=== PATIENT | female | born 1935 | race Caucasian/White ===

== ENCOUNTER 2018-02-09 11:15 | Outpatient (RCR) | payer MEDICARE, BC, SELFPAY ==
[2018-01-01 14:27] VITALS: TEMP 36.1
--- NOTE | 2018-01-12 15:54 | PT.OIE ---
Current Diagnoses Spondylolisthesis, lumbar region (01/10/18) Other spondylosis with radiculopathy, lumbar region (01/10/18) Spinal stenosis, lumbar region without neurogenic claudication (01/10/18) Unsteadiness on feet (01/10/18) Weakness (01/10/18) Past Surgical History (Last Reviewed 01/12/18 @ 15:44 by Emily Da Silva, PT) History of cataract removal with insertion of prosthetic lens History of knee replacement (06/04/11) Status post appendectomy Status post hysterectomy Status post knee surgery Status post knee surgery Provider Visit Care Team Role Provider Type Ronni Ya MD Family Provider Physician Primary Care Provider Specialty: Family Practice Address: [address] [place] [address], [address] Email: [email or web address] Eusebio Loredo MD Attending Provider Physician Specialty: Orthopedic Surgery Address: [address] [place] [address], [id number] Email: [email or web address] Physical Therapy Initial Evaluation PT-OP-A Visit Information Start: 01/10/18 09:51 Freq: Status: Active Protocol: Document 01/10/18 10:10 [facility] (Rec: 01/12/18 15:53 [facility] [id number]) Out-Patient Physical Therapy Visit Information Visit Information Visit Type Initial Evaluation Visit Note 1 Visit Start Time 09:45 Visit Stop Time 10:30 Total Visit Minutes 45 Visit Number 09/07 Number of DETAIL ASSEMBLER Visits 0 PT-OP-B Current Condition Start: 01/10/18 09:51 Freq: Status: Active Protocol: Document 01/10/18 10:10 [facility] (Rec: 01/12/18 15:53 [facility] [id number]) Current Condition History of Current Condition Onset Date 11/14/17 Current Complaints LB feels weak History of Current Condition Pt had TLIF on 11/14/17 of L3-4 , L4-5 that she reports the MD told her is healing well. Pt reports last tuesday she tripped over a rug and the next day her L shoulder was very painful so she went to the ER, but is fine now. Main complaint is weakness in back and dec balance.S ehw asnts to returnt o pickleball & weight exercsies. Treatment Goals Patient/Caregiver Goals Return to pickleball & weights & improve balance Prior Functional Status Baseline Function- Recreation/Hobbies played pickleball & did weights Current Functional Impairments (Reported) Functional Limitations- Recreation/ unable to do weights or play Hobbies pickleball PT-OP-C Subjective Start: 01/10/18 09:51 Freq: Status: Active Protocol: Document 01/10/18 10:10 [facility] (Rec: 01/12/18 15:53 [facility] [email or web address]) Patient Questionnaires Oswestry Low Back Index Oswestry Score 5 Oswestry Impairment 1 to 19% Impaired (Score 1-19) OP-PT Pain Assessment Pain Assessment Grid Paper Pain Assessment Grid Completed Yes Location Bilateral Back Pain Location Details Low back feels weak PT-OP-G Mobility & Gait Start: 01/10/18 09:51 Freq: Status: Active Protocol: Document 01/10/18 10:10 [facility] (Rec: 01/12/18 15:53 [facility] [id number]) OP Gait Assessment Comments Gait Comments Pt has dec push off bilaterally. No AD PT-OP-J Posture/Palpation/Skin Start: 01/10/18 09:51 Freq: Status: Active Protocol: Document 01/10/18 10:10 [facility] (Rec: 01/12/18 15:53 [facility] [id number]) Posture Evaluation Comments Posture Comments Inc kyphosis Skin Assessment Incisional Assessment Incision Appearance/Comments Incision is healing well PT-OP-M Strength Start: 01/10/18 09:51 Freq: Status: Active Protocol: Document 01/10/18 10:10 [facility] (Rec: 01/10/18 10:27 [facility] [id number]) Hip Strength Hip Manual Muscle Testing Right Flexion (L2) 4 Good Extension (S1) 4- Good- Abduction 4 Good External Rotation 4 Good Internal Rotation 4 Good Left Flexion (L2) 4 Good Extension (S1) 4- Good- Abduction 4- Good- External Rotation 4 Good Internal Rotation 5 Normal Comments Knee & ankle strength grossly 5/5 (B) PT-OP-Q Treatments Start: 01/10/18 09:51 Freq: Status: Active Protocol: Document 01/10/18 10:10 [facility] (Rec: 01/10/18 10:27 [facility] [id number]) Therapeutic Exercises Supine Exercises 2 Supine Exercise Name bridging Side bilateral Comments w/breathing 1 Supine Exercise Name TA contraction Reps/Minutes 10 Comments w/breathing Sidelying Exercises 1 Sidelying Exercise Name hip abd Side bilateral Reps/Minutes 10 PT-OP-T Assessment and Plan Start: 01/10/18 09:51 Freq: Status: Active Protocol: Document 01/10/18 10:10 [facility] (Rec: 01/12/18 15:53 [facility] [id number]) Physical Therapy Assessment Rehab Potential Rehabilitation Potential Excellent Evaluation Complexity Number of Personal Factors/Comorbidities 3 or More Number of Body Systems Impaired 4 or More Clinical Presentation at Evaluation Stable Impairments Impairments Activity Tolerance Balance Functional Activities Gait Posture Strength Goals Two Impairment Pt feels dec balance Mcc Goal (LTG) Pt will be able to score 22/24 on DGI LTG Duration by 03/12/18 One Impairment strength Short Term Goal (STG) Indep with HEP STG Duration by 02/10/18 Field Tax Auditor Goal (LTG) Increased strength to 5/5 to allow pt to return to pickleball & weights without pain. LTG Duration by 03/12/18 Physical Therapy Plan Frequency and Duration Frequency of Treatment 2x/Week Duration of Treatment 2 months Plan of Care Start Date 01/10/18 Plan of Care End Date 03/12/18 Therapeutic Interventions Therapeutic Interventions Balance Training Gait Training Home Exercise Program Joint Mobilizations Manual Therapy Neuromuscular Re-education Patient/Caregiver Education Soft Tissue Mobilization Taping Therapeutic Activities Therapeutic Exercises Modalities Cold Pack/Ice Massage Electric Stimulation Hot Packs Next Visit Focus/Plan Next Visit Plan LE strengthening exercises & supine core & weight exercises Provider Signature Date
--- NOTE | 2018-01-12 15:54 | PT.OPPOC ---
Current Diagnoses Spondylolisthesis, lumbar region (01/10/18) Other spondylosis with radiculopathy, lumbar region (01/10/18) Spinal stenosis, lumbar region without neurogenic claudication (01/10/18) Unsteadiness on feet (01/10/18) Weakness (01/10/18) Provider Visit Care Team Role Provider Type Ronni Ya MD Family Provider Physician Primary Care Provider Specialty: Family Practice Address: [address] [place] [address], [address] Email: [email or web address] Eusebio Loredo MD Attending Provider Physician Specialty: Orthopedic Surgery Address: [address] [place] [address], [address] Email: [email or web address] Plan Of Care PT-OP-T Assessment and Plan Start: 01/10/18 09:51 Freq: Status: Active Protocol: Document 01/10/18 10:10 [facility] (Rec: 01/12/18 15:53 [facility] [id number]) Physical Therapy Assessment Rehab Potential Rehabilitation Potential Excellent Evaluation Complexity Number of Personal Factors/Comorbidities 3 or More Number of Body Systems Impaired 4 or More Clinical Presentation at Evaluation Stable Impairments Impairments Activity Tolerance Balance Functional Activities Gait Posture Strength Goals Two Impairment Pt feels dec balance Repair Coil Winder Goal (LTG) Pt will be able to score 22/24 on DGI LTG Duration by 03/12/18 One Impairment strength Short Term Goal (STG) Indep with HEP STG Duration by 02/10/18 Intermediate Goal (LTG) Increased strength to 5/5 to allow pt to return to pickleball & weights without pain. LTG Duration by 03/12/18 Physical Therapy Plan Frequency and Duration Frequency of Treatment 2x/Week Duration of Treatment 2 months Plan of Care Start Date 01/10/18 Plan of Care End Date 03/12/18 Therapeutic Interventions Therapeutic Interventions Balance Training Gait Training Home Exercise Program Joint Mobilizations Manual Therapy Neuromuscular Re-education Patient/Caregiver Education Soft Tissue Mobilization Taping Therapeutic Activities Therapeutic Exercises Modalities Cold Pack/Ice Massage Electric Stimulation Hot Packs Next Visit Focus/Plan Next Visit Plan LE strengthening exercises & supine core & weight exercises Plan of Care Dates Plan of Care Start Date 01/10/18 Plan of Care End Date 03/12/18 Please Sign and Return: I have reviewed this Plan of Care and certify that the skilled therapy services above are required to meet the patient???s needs. Physician Signature Date Printed Name and Credentials
--- NOTE | 2018-01-13 11:38 | PT.OTN ---
Current Diagnoses Spondylolisthesis, lumbar region (01/13/18) Other spondylosis with radiculopathy, lumbar region (01/13/18) Spinal stenosis, lumbar region without neurogenic claudication (01/13/18) Physical Therapy Treatment Note PT-OP-A Visit Information Start: 01/10/18 09:51 Freq: Status: Active Protocol: Document 01/13/18 09:02 [facility] (Rec: 01/13/18 09:49 [facility] [id number]) Out-Patient Physical Therapy Visit Information Visit Information Visit Type Treatment Note Visit Note 2 Visit Start Time 09:00 Visit Stop Time 09:45 Total Visit Minutes 45 Visit Number 10/08 PT-OP-B Current Condition Start: 01/10/18 09:51 Freq: Status: Active Protocol: Document 01/10/18 10:10 [facility] (Rec: 01/12/18 15:53 [facility] [id number]) Current Condition History of Current Condition Onset Date 11/14/17 Current Complaints LB feels weak History of Current Condition Pt had TLIF on 11/14/17 of L3-4 , L4-5 that she reports the MD told her is healing well. Pt reports last tuesday she tripped over a rug and the next day her L shoulder was very painful so she went to the ER, but is fine now. Main complaint is weakness in back and dec balance.S ehw asnts to returnt o pickleball & weight exercsies. Treatment Goals Patient/Caregiver Goals Return to pickleball & weights & improve balance Prior Functional Status Baseline Function- Recreation/Hobbies played pickleball & did weights Current Functional Impairments (Reported) Functional Limitations- Recreation/ unable to do weights or play Hobbies pickleball PT-OP-C Subjective Start: 01/10/18 09:51 Freq: Status: Active Protocol: Document 01/13/18 09:02 [facility] (Rec: 01/13/18 09:49 [facility] [id number]) OP-PT Subjective Patient Comments Patient Comments Reports fatigue in back after exercising. PT-OP-G Mobility & Gait Start: 01/10/18 09:51 Freq: Status: Active Protocol: Document 01/10/18 10:10 [facility] (Rec: 01/12/18 15:53 [facility] [id number]) OP Gait Assessment Comments Gait Comments Pt has dec push off bilaterally. No AD PT-OP-J Posture/Palpation/Skin Start: 01/10/18 09:51 Freq: Status: Active Protocol: Document 01/10/18 10:10 [facility] (Rec: 01/12/18 15:53 [facility] [id number]) Posture Evaluation Comments Posture Comments Inc kyphosis Skin Assessment Incisional Assessment Incision Appearance/Comments Incision is healing well PT-OP-M Strength Start: 01/10/18 09:51 Freq: Status: Active Protocol: Document 01/10/18 10:10 [facility] (Rec: 01/10/18 10:27 [facility] [id number]) Hip Strength Hip Manual Muscle Testing Right Flexion (L2) 4 Good Extension (S1) 4- Good- Abduction 4 Good External Rotation 4 Good Internal Rotation 4 Good Left Flexion (L2) 4 Good Extension (S1) 4- Good- Abduction 4- Good- External Rotation 4 Good Internal Rotation 5 Normal Comments Knee & ankle strength grossly 5/5 (B) PT-OP-Q Treatments Start: 01/10/18 09:51 Freq: Status: Active Protocol: Document 01/13/18 09:02 [facility] (Rec: 01/13/18 09:49 [facility] [id number]) Gym Equipment Shuttle Balance 1 Details red clips Comments WBOS & NBOS fwd & side Therapeutic Exercises Supine Exercises 4 Supine Exercise Name SKTC Reps/Minutes 3x30 sec 3 Supine Exercise Name supine marches w/ tilt Reps/Minutes 2x10 2 Supine Exercise Name bridging Side bilateral Comments w/breathing 1 Supine Exercise Name TA contraction Reps/Minutes 10 Comments w/breathing Sidelying Exercises 1 Sidelying Exercise Name hip abd Side bilateral Reps/Minutes 10 Manual Therapy Treatment Soft Tissue Mobilization 1 Body Location scar tissue Mobilization Type Rolling Intensity/Depth Moderate Body Position Prone Self-Care/Home Management Treatment Education Other Education Edu to start weight class without weights. No crunches, bending or twisting exercises. PT-OP-T Assessment and Plan Start: 01/10/18 09:51 Freq: Status: Active Protocol: Document 01/13/18 09:02 [facility] (Rec: 01/13/18 09:49 [facility] [id number]) Physical Therapy Assessment Assessment Summary Assessment Pt required cueing especially with breathing with all exercises. Initially had difficulty with balance board, but improved with time spent on board. Scar mobility presents with moderate restrictions. Physical Therapy Plan Frequency and Duration Frequency of Treatment 2x/Week Duration of Treatment 2 months Plan of Care Start Date 01/10/18 Plan of Care End Date 03/12/18 Next Visit Focus/Plan Next Visit Plan Core & balance
--- NOTE | 2018-01-17 10:25 | PT.OTN ---
Current Diagnoses Spondylolisthesis, lumbar region (01/17/18) Other spondylosis with radiculopathy, lumbar region (01/17/18) Spinal stenosis, lumbar region without neurogenic claudication (01/17/18) Physical Therapy Treatment Note PT-OP-A Visit Information Start: 01/10/18 09:51 Freq: Status: Active Protocol: Document 01/17/18 09:48 [facility] (Rec: 01/17/18 10:24 [facility] [id number]) Out-Patient Physical Therapy Visit Information Visit Information Visit Type Treatment Note Visit Start Time 09:45 Visit Stop Time 10:30 Total Visit Minutes 45 Visit Number 3 Number of LUBE TECHNICIAN Visits 0 PT-OP-B Current Condition Start: 01/10/18 09:51 Freq: Status: Active Protocol: Document 01/10/18 10:10 [facility] (Rec: 01/12/18 15:53 [facility] [id number]) Current Condition History of Current Condition Onset Date 11/14/17 Current Complaints LB feels weak History of Current Condition Pt had TLIF on 11/14/17 of L3-4 , L4-5 that she reports the MD told her is healing well. Pt reports last tuesday she tripped over a rug and the next day her L shoulder was very painful so she went to the ER, but is fine now. Main complaint is weakness in back and dec balance.S ehw asnts to returnt o pickleball & weight exercsies. Treatment Goals Patient/Caregiver Goals Return to pickleball & weights & improve balance Prior Functional Status Baseline Function- Recreation/Hobbies played pickleball & did weights Current Functional Impairments (Reported) Functional Limitations- Recreation/ unable to do weights or play Hobbies pickleball PT-OP-C Subjective Start: 01/10/18 09:51 Freq: Status: Active Protocol: Document 01/17/18 09:48 [facility] (Rec: 01/17/18 10:24 [facility] [id number]) OP-PT Subjective Patient Comments Patient Comments Reports dec compliance with HEP d/t being in the hospital. PT-OP-G Mobility & Gait Start: 01/10/18 09:51 Freq: Status: Active Protocol: Document 01/10/18 10:10 [facility] (Rec: 01/12/18 15:53 [facility] [id number]) OP Gait Assessment Comments Gait Comments Pt has dec push off bilaterally. No AD PT-OP-J Posture/Palpation/Skin Start: 01/10/18 09:51 Freq: Status: Active Protocol: Document 01/10/18 10:10 [facility] (Rec: 01/12/18 15:53 [facility] [id number]) Posture Evaluation Comments Posture Comments Inc kyphosis Skin Assessment Incisional Assessment Incision Appearance/Comments Incision is healing well PT-OP-M Strength Start: 01/10/18 09:51 Freq: Status: Active Protocol: Document 01/10/18 10:10 [facility] (Rec: 01/10/18 10:27 [facility] [id number]) Hip Strength Hip Manual Muscle Testing Right Flexion (L2) 4 Good Extension (S1) 4- Good- Abduction 4 Good External Rotation 4 Good Internal Rotation 4 Good Left Flexion (L2) 4 Good Extension (S1) 4- Good- Abduction 4- Good- External Rotation 4 Good Internal Rotation 5 Normal Comments Knee & ankle strength grossly 5/5 (B) PT-OP-Q Treatments Start: 01/10/18 09:51 Freq: Status: Active Protocol: Document 01/17/18 09:48 [facility] (Rec: 01/17/18 10:24 [facility] [id number]) Cardio Equipment Recumbent Elliptical (Biodex) Duration (Minutes) 6 Resistance 8 Gym Equipment Shuttle Balance 1 Details red clips Comments WBOS & NBOS fwd & side & fwd staggered Therapeutic Exercises Supine Exercises 4 Supine Exercise Name SKTC Reps/Minutes 30 sec 3 Supine Exercise Name marches progress to scissors Reps/Minutes 2x10 2 Supine Exercise Name bridging w/arms up Side bilateral Reps/Minutes 10 Comments w/breathing Sidelying Exercises 1 Sidelying Exercise Name hip abd Side bilateral Reps/Minutes 10 Standing Exercises 2 Standing Exercise Name fwd/back walk Resistance yellow Reps/Minutes 2x20ft 1 Standing Exercise Name sidesteps Resistance yellow Reps/Minutes 2x20ft Manual Therapy Treatment Soft Tissue Mobilization 1 Body Location scar tissue Mobilization Type Rolling Intensity/Depth Moderate Body Position Prone Neuro Re-Education Treatment Balance Activities 1 Details walk over hurdles w/thera discs Reps/Duration 4 laps PT-OP-T Assessment and Plan Start: 01/10/18 09:51 Freq: Status: Active Protocol: Document 01/17/18 09:48 [facility] (Rec: 01/17/18 10:24 [facility] [id number]) Physical Therapy Assessment Assessment Summary Assessment Pt had improved form with exercises with cont min cueing . Pt had improved balance with balance board today. Physical Therapy Plan Frequency and Duration Frequency of Treatment 2x/Week Duration of Treatment 2 months Plan of Care Start Date 01/10/18 Plan of Care End Date 03/12/18 Next Visit Focus/Plan Next Visit Plan Core & balance Please Sign and Return: I have reviewed this Plan of Care and certify that the skilled therapy services above are required to meet the patient???s needs. Physician Signature Date Printed Name and Credentials Clinical Instructor Signature Printed Name and Credentials
--- NOTE | 2018-01-20 12:56 | PT.OTN ---
Current Diagnoses Spondylolisthesis, lumbar region (01/20/18) Other spondylosis with radiculopathy, lumbar region (01/20/18) Spinal stenosis, lumbar region without neurogenic claudication (01/20/18) Physical Therapy Treatment Note PT-OP-A Visit Information Start: 01/10/18 09:51 Freq: Status: Active Protocol: Document 01/20/18 09:45 [facility] (Rec: 01/20/18 12:54 [facility] [id number]) Out-Patient Physical Therapy Visit Information Visit Information Visit Type Treatment Note Visit Start Time 09:45 Visit Stop Time 10:30 Total Visit Minutes 45 Visit Number 4/ Number of TISSUE TECHNICIAN Visits 0 Evaluation Information Evaluation Date 01/10/18 PT-OP-B Current Condition Start: 01/10/18 09:51 Freq: Status: Active Protocol: Document 01/10/18 10:10 [facility] (Rec: 01/12/18 15:53 [facility] [id number]) Current Condition History of Current Condition Onset Date 11/14/17 Current Complaints LB feels weak History of Current Condition Pt had TLIF on 11/14/17 of L3-4 , L4-5 that she reports the MD told her is healing well. Pt reports last tuesday she tripped over a rug and the next day her L shoulder was very painful so she went to the ER, but is fine now. Main complaint is weakness in back and dec balance.S ehw asnts to returnt o pickleball & weight exercsies. Treatment Goals Patient/Caregiver Goals Return to pickleball & weights & improve balance Prior Functional Status Baseline Function- Recreation/Hobbies played pickleball & did weights Current Functional Impairments (Reported) Functional Limitations- Recreation/ unable to do weights or play Hobbies pickleball PT-OP-C Subjective Start: 01/10/18 09:51 Freq: Status: Active Protocol: Document 01/20/18 09:45 [facility] (Rec: 01/20/18 10:01 [facility] [id number]) OP-PT Subjective Patient Comments Patient Comments The low back still feels weak. PT-OP-G Mobility & Gait Start: 01/10/18 09:51 Freq: Status: Active Protocol: Document 01/10/18 10:10 [facility] (Rec: 01/12/18 15:53 [facility] [id number]) OP Gait Assessment Comments Gait Comments Pt has dec push off bilaterally. No AD PT-OP-J Posture/Palpation/Skin Start: 01/10/18 09:51 Freq: Status: Active Protocol: Document 01/10/18 10:10 [facility] (Rec: 01/12/18 15:53 [facility] [id number]) Posture Evaluation Comments Posture Comments Inc kyphosis Skin Assessment Incisional Assessment Incision Appearance/Comments Incision is healing well PT-OP-M Strength Start: 01/10/18 09:51 Freq: Status: Active Protocol: Document 01/10/18 10:10 [facility] (Rec: 01/10/18 10:27 [facility] [id number]) Hip Strength Hip Manual Muscle Testing Right Flexion (L2) 4 Good Extension (S1) 4- Good- Abduction 4 Good External Rotation 4 Good Internal Rotation 4 Good Left Flexion (L2) 4 Good Extension (S1) 4- Good- Abduction 4- Good- External Rotation 4 Good Internal Rotation 5 Normal Comments Knee & ankle strength grossly 5/5 (B) PT-OP-Q Treatments Start: 01/10/18 09:51 Freq: Status: Active Protocol: Document 01/20/18 09:45 [facility] (Rec: 01/20/18 12:54 [facility] [id number]) Cardio Equipment Recumbent Elliptical (Biodex) Duration (Minutes) 6 Resistance 8 Gym Equipment Shuttle Balance 1 Details red clips Comments WBOS & NBOS fwd & side & fwd staggered- with mini lunge Therapeutic Exercises Supine Exercises 4 Supine Exercise Name SKTC Reps/Minutes 30 sec 3 Supine Exercise Name marches progress to scissors Reps/Minutes 2x10 1 Supine Exercise Name TA contraction Reps/Minutes 10 Comments w/breathing Sidelying Exercises 1 Sidelying Exercise Name hip abd Side bilateral Reps/Minutes 12 Standing Exercises 5 Standing Exercise Name pec stretch Equipment Used corner Reps/Minutes 30x4 4 Standing Exercise Name lunge- forward Reps/Minutes 2x10 3 Standing Exercise Name squat Reps/Minutes 2x10 Manual Therapy Treatment Soft Tissue Mobilization 1 Body Location scar tissue Mobilization Type Rolling Intensity/Depth Moderate Body Position Sidelying PT-OP-T Assessment and Plan Start: 01/10/18 09:51 Freq: Status: Active Protocol: Document 01/20/18 09:45 [facility] (Rec: 01/20/18 12:54 [facility] [id number]) Physical Therapy Assessment Goals Two Impairment Pt feels dec balance Silver Cleaner Goal (LTG) Pt will be able to score 22/24 on DGI LTG Duration by 03/12/18 One Impairment strength Short Term Goal (STG) Indep with HEP STG Duration by 02/10/18 Silver Cleaner Goal (LTG) Increased strength to 5/5 to allow pt to return to pickleball & weights without pain. LTG Duration by 03/12/18 Assessment Summary Assessment Balance is improving- she is concerned about her L shoulder pain from her fall. Physical Therapy Plan Frequency and Duration Frequency of Treatment 2x/Week Duration of Treatment 2 months Plan of Care Start Date 01/10/18 Plan of Care End Date 03/12/18 Next Visit Focus/Plan Next Note Type Treatment Note Next Visit Plan Continue to progress postural awareness, jose with weight class. Please Sign and Return: I have reviewed this Plan of Care and certify that the skilled therapy services above are required to meet the patient???s needs. Physician Signature Date Printed Name and Credentials Clinical Instructor Signature Printed Name and Credentials
--- NOTE | 2018-01-24 10:40 | PT.OTN ---
Current Diagnoses Spondylolisthesis, lumbar region (01/24/18) Other spondylosis with radiculopathy, lumbar region (01/24/18) Spinal stenosis, lumbar region without neurogenic claudication (01/24/18) Physical Therapy Treatment Note PT-OP-A Visit Information Start: 01/10/18 09:51 Freq: Status: Active Protocol: Document 01/24/18 09:43 [facility] (Rec: 01/24/18 10:39 [facility] [id number]) Out-Patient Physical Therapy Visit Information Visit Information Visit Type Treatment Note Visit Start Time 09:45 Visit Stop Time 10:30 Total Visit Minutes 45 Visit Number 5/ Number of TIP STRETCHER Visits 0 PT-OP-B Current Condition Start: 01/10/18 09:51 Freq: Status: Active Protocol: Document 01/10/18 10:10 [facility] (Rec: 01/12/18 15:53 [facility] [id number]) Current Condition History of Current Condition Onset Date 11/14/17 Current Complaints LB feels weak History of Current Condition Pt had TLIF on 11/14/17 of L3-4 , L4-5 that she reports the MD told her is healing well. Pt reports last tuesday she tripped over a rug and the next day her L shoulder was very painful so she went to the ER, but is fine now. Main complaint is weakness in back and dec balance.S ehw asnts to returnt o pickleball & weight exercsies. Treatment Goals Patient/Caregiver Goals Return to pickleball & weights & improve balance Prior Functional Status Baseline Function- Recreation/Hobbies played pickleball & did weights Current Functional Impairments (Reported) Functional Limitations- Recreation/ unable to do weights or play Hobbies pickleball PT-OP-C Subjective Start: 01/10/18 09:51 Freq: Status: Active Protocol: Document 01/24/18 09:43 [facility] (Rec: 01/24/18 10:39 [facility] [id number]) OP-PT Subjective Patient Comments Patient Comments No exercises this weekend, but plans to resume this week. Some lower L soreness. PT-OP-G Mobility & Gait Start: 01/10/18 09:51 Freq: Status: Active Protocol: Document 01/10/18 10:10 [facility] (Rec: 01/12/18 15:53 [facility] [id number]) OP Gait Assessment Comments Gait Comments Pt has dec push off bilaterally. No AD PT-OP-J Posture/Palpation/Skin Start: 01/10/18 09:51 Freq: Status: Active Protocol: Document 01/10/18 10:10 [facility] (Rec: 01/12/18 15:53 [facility] [id number]) Posture Evaluation Comments Posture Comments Inc kyphosis Skin Assessment Incisional Assessment Incision Appearance/Comments Incision is healing well PT-OP-M Strength Start: 01/10/18 09:51 Freq: Status: Active Protocol: Document 01/10/18 10:10 [facility] (Rec: 01/10/18 10:27 [facility] [id number]) Hip Strength Hip Manual Muscle Testing Right Flexion (L2) 4 Good Extension (S1) 4- Good- Abduction 4 Good External Rotation 4 Good Internal Rotation 4 Good Left Flexion (L2) 4 Good Extension (S1) 4- Good- Abduction 4- Good- External Rotation 4 Good Internal Rotation 5 Normal Comments Knee & ankle strength grossly 5/5 (B) PT-OP-Q Treatments Start: 01/10/18 09:51 Freq: Status: Active Protocol: Document 01/24/18 09:43 [facility] (Rec: 01/24/18 10:39 [facility] [id number]) Cardio Equipment Recumbent Elliptical (Biodex) Duration (Minutes) 6 Resistance 8 Gym Equipment Shuttle Balance 1 Details red clips Comments WBOS & NBOS fwd & side & fwd staggered- with mini lunge Therapeutic Ball 2 Exercise Details marching Ball Size/Color 55cm Body Position Sitting Reps/Duration 20 1 Exercise Details Shoulder ext & B ER Ball Size/Color 55 CM Body Position Sitting Reps/Duration 15 Comments L2 ext & L1 rot Therapeutic Exercises Standing Exercises 5 Standing Exercise Name pec stretch Equipment Used corner Reps/Minutes 30 4 Standing Exercise Name lunge- forward Reps/Minutes 2x10 2 Standing Exercise Name fwd/back walk Resistance yellow Reps/Minutes 2x20ft 1 Standing Exercise Name sidesteps Resistance yellow Reps/Minutes 2x20ft Manual Therapy Treatment Soft Tissue Mobilization 2 Body Location QL L Mobilization Type Rolling Intensity/Depth Moderate Body Position Prone 1 Body Location scar tissue Mobilization Type Rolling Intensity/Depth Moderate Body Position Sidelying PT-OP-T Assessment and Plan Start: 01/10/18 09:51 Freq: Status: Active Protocol: Document 01/24/18 09:43 [facility] (Rec: 01/24/18 10:39 [facility] [id number]) Physical Therapy Assessment Goals Two Impairment Pt feels dec balance Bag Sorter Goal (LTG) Pt will be able to score 22/24 on DGI LTG Duration by 03/12/18 One Impairment strength Short Term Goal (STG) Indep with HEP STG Duration by 02/10/18 Bag Sorter Goal (LTG) Increased strength to 5/5 to allow pt to return to pickleball & weights without pain. LTG Duration by 03/12/18 Assessment Summary Assessment Pt able to go through exercises with cueing. Improved ability to balance on balance board. L shoulder is improving Physical Therapy Plan Frequency and Duration Frequency of Treatment 2x/Week Duration of Treatment 2 months Plan of Care Start Date 01/10/18 Plan of Care End Date 03/12/18 Next Visit Focus/Plan Next Note Type Treatment Note Next Visit Plan Continue to progress postural awareness & core activiation. Please Sign and Return: I have reviewed this Plan of Care and certify that the skilled therapy services above are required to meet the patient???s needs. Physician Signature Date Printed Name and Credentials Clinical Instructor Signature Printed Name and Credentials
--- NOTE | 2018-01-27 09:45 | PT.OTN ---
Current Diagnoses Spondylolisthesis, lumbar region (01/27/18) Other spondylosis with radiculopathy, lumbar region (01/27/18) Spinal stenosis, lumbar region without neurogenic claudication (01/27/18) Physical Therapy Treatment Note PT-OP-A Visit Information Start: 01/10/18 09:51 Freq: Status: Active Protocol: Document 01/27/18 09:00 [facility] (Rec: 01/27/18 09:44 [facility] [id number]) Out-Patient Physical Therapy Visit Information Visit Information Visit Type Treatment Note Visit Start Time 09:00 Visit Stop Time 09:45 Total Visit Minutes 45 Visit Number 02/05 Number of DATABASE SOFTWARE TECHNICIAN Visits 0 Evaluation Information Evaluation Date 01/10/18 PT-OP-B Current Condition Start: 01/10/18 09:51 Freq: Status: Active Protocol: Document 01/10/18 10:10 [facility] (Rec: 01/12/18 15:53 [facility] [id number]) Current Condition History of Current Condition Onset Date 11/14/17 Current Complaints LB feels weak History of Current Condition Pt had TLIF on 11/14/17 of L3-4 , L4-5 that she reports the MD told her is healing well. Pt reports last tuesday she tripped over a rug and the next day her L shoulder was very painful so she went to the ER, but is fine now. Main complaint is weakness in back and dec balance.S ehw asnts to returnt o pickleball & weight exercsies. Treatment Goals Patient/Caregiver Goals Return to pickleball & weights & improve balance Prior Functional Status Baseline Function- Recreation/Hobbies played pickleball & did weights Current Functional Impairments (Reported) Functional Limitations- Recreation/ unable to do weights or play Hobbies pickleball PT-OP-C Subjective Start: 01/10/18 09:51 Freq: Status: Active Protocol: Document 01/27/18 09:00 [facility] (Rec: 01/27/18 09:44 [facility] [id number]) OP-PT Subjective Patient Comments Patient Comments Pt reports her shoulder has been bothering her a little more recently PT-OP-Q Treatments Start: 01/10/18 09:51 Freq: Status: Active Protocol: Document 01/27/18 09:00 [facility] (Rec: 01/27/18 09:44 [facility] [id number]) Cardio Equipment Recumbent Elliptical (Biodex) Duration (Minutes) 6 Resistance 8 Gym Equipment Shuttle Balance 1 Details red clips Comments WBOS (EO/EC), Staggered stance , Lateral weight shift Therapeutic Ball 2 Exercise Details marching Ball Size/Color 55cm Body Position Sitting Reps/Duration 20 1 Exercise Details Shoulder ext & B ER Ball Size/Color 55 CM Body Position Sitting Reps/Duration 15 Comments L2 ext & L1 rot Therapeutic Exercises Standing Exercises 2 Standing Exercise Name fwd/back walk Resistance yellow Reps/Minutes 2x20ft 1 Standing Exercise Name sidesteps Resistance yellow Reps/Minutes 2x20ft Manual Therapy Treatment Soft Tissue Mobilization 2 Body Location QL L Mobilization Type Rolling Intensity/Depth Moderate Body Position Prone 1 Body Location scar tissue Mobilization Type Rolling Intensity/Depth Moderate Body Position Sidelying PT-OP-T Assessment and Plan Start: 01/10/18 09:51 Freq: Status: Active Protocol: Document 01/27/18 09:00 [facility] (Rec: 01/27/18 09:44 [facility] [id number]) Physical Therapy Assessment Goals Two Impairment Pt feels dec balance Candy Maker Helper Goal (LTG) Pt will be able to score 22/24 on DGI LTG Duration by 03/12/18 One Impairment strength Short Term Goal (STG) Indep with HEP STG Duration by 02/10/18 Penitentiary Goal (LTG) Increased strength to 5/5 to allow pt to return to pickleball & weights without pain. LTG Duration by 03/12/18 Assessment Summary Assessment Pt tolerated TherEx and manual therapy well today, reported no increased pain with activity. Pt did mention her shoulder pain, but she feels it might be improving. Physical Therapy Plan Frequency and Duration Frequency of Treatment 2x/Week Duration of Treatment 2 months Plan of Care Start Date 01/10/18 Plan of Care End Date 03/12/18 Next Visit Focus/Plan Next Note Type Treatment Note Next Visit Plan Balance training and core strengthening, continue current POC
--- NOTE | 2018-02-02 11:28 | PT.OTN ---
Current Diagnoses Spondylolisthesis, lumbar region (02/02/18) Other spondylosis with radiculopathy, lumbar region (02/02/18) Spinal stenosis, lumbar region without neurogenic claudication (02/02/18) Physical Therapy Treatment Note PT-OP-A Visit Information Start: 01/10/18 09:51 Freq: Status: Active Protocol: Document 02/02/18 10:41 [facility] (Rec: 02/02/18 11:28 [facility] [id number]) Out-Patient Physical Therapy Visit Information Visit Information Visit Type Treatment Note Visit Start Time 10:35 Visit Stop Time 11:15 Total Visit Minutes 40 Visit Number 7 Number of FOREST FIRE FIGHTER Visits 0 PT-OP-B Current Condition Start: 01/10/18 09:51 Freq: Status: Active Protocol: Document 01/10/18 10:10 [facility] (Rec: 01/12/18 15:53 [facility] [id number]) Current Condition History of Current Condition Onset Date 11/14/17 Current Complaints LB feels weak History of Current Condition Pt had TLIF on 11/14/17 of L3-4 , L4-5 that she reports the MD told her is healing well. Pt reports last tuesday she tripped over a rug and the next day her L shoulder was very painful so she went to the ER, but is fine now. Main complaint is weakness in back and dec balance.S ehw asnts to returnt o pickleball & weight exercsies. Treatment Goals Patient/Caregiver Goals Return to pickleball & weights & improve balance Prior Functional Status Baseline Function- Recreation/Hobbies played pickleball & did weights Current Functional Impairments (Reported) Functional Limitations- Recreation/ unable to do weights or play Hobbies pickleball PT-OP-C Subjective Start: 01/10/18 09:51 Freq: Status: Active Protocol: Document 02/02/18 10:41 [facility] (Rec: 02/02/18 11:28 [facility] [id number]) OP-PT Subjective Patient Comments Patient Comments Pt wants to work on the fact her back gets burning & tired. PT-OP-G Mobility & Gait Start: 01/10/18 09:51 Freq: Status: Active Protocol: Document 01/10/18 10:10 [facility] (Rec: 01/12/18 15:53 [facility] [id number]) OP Gait Assessment Comments Gait Comments Pt has dec push off bilaterally. No AD PT-OP-J Posture/Palpation/Skin Start: 01/10/18 09:51 Freq: Status: Active Protocol: Document 01/10/18 10:10 [facility] (Rec: 01/12/18 15:53 [facility] [id number]) Posture Evaluation Comments Posture Comments Inc kyphosis Skin Assessment Incisional Assessment Incision Appearance/Comments Incision is healing well PT-OP-M Strength Start: 01/10/18 09:51 Freq: Status: Active Protocol: Document 01/10/18 10:10 [facility] (Rec: 01/10/18 10:27 [facility] [id number]) Hip Strength Hip Manual Muscle Testing Right Flexion (L2) 4 Good Extension (S1) 4- Good- Abduction 4 Good External Rotation 4 Good Internal Rotation 4 Good Left Flexion (L2) 4 Good Extension (S1) 4- Good- Abduction 4- Good- External Rotation 4 Good Internal Rotation 5 Normal Comments Knee & ankle strength grossly 5/5 (B) PT-OP-Q Treatments Start: 01/10/18 09:51 Freq: Status: Active Protocol: Document 02/02/18 10:41 [facility] (Rec: 02/02/18 11:28 [facility] [id number]) Cardio Equipment Recumbent Elliptical (Biodex) Duration (Minutes) 7 Resistance 8 Gym Equipment Shuttle Balance 1 Details red clips Comments WBOS (EO/EC), NBOSStaggered stance, Lateral weight shift Therapeutic Exercises Standing Exercises 4 Standing Exercise Name lunge- forward Reps/Minutes 2x10 2 Standing Exercise Name fwd/back walk Resistance red Reps/Minutes 2x20ft 1 Standing Exercise Name sidesteps Resistance red Reps/Minutes 2x20ft Manual Therapy Treatment Soft Tissue Mobilization 2 Body Location QL L Mobilization Type Rolling Intensity/Depth Moderate Body Position Prone 1 Body Location scar tissue Mobilization Type Rolling Intensity/Depth Moderate Body Position Sidelying Joint Mobilizations 2 Joint hip on axis Direction ER FM 1 Joint sacrum Direction PA & caudal FM Neuro Re-Education Treatment Balance Activities 1 Details walk over hurdles w/thera discs Reps/Duration 4 laps PT-OP-T Assessment and Plan Start: 01/10/18 09:51 Freq: Status: Active Protocol: Document 02/02/18 10:41 [facility] (Rec: 02/02/18 11:28 [facility] [id number]) Physical Therapy Assessment Goals Two Impairment Pt feels dec balance Wine Merchant Goal (LTG) Pt will be able to score 22/24 on DGI LTG Duration by 03/12/18 One Impairment strength Short Term Goal (STG) Indep with HEP STG Duration by 02/10/18 Wine Merchant Goal (LTG) Increased strength to 5/5 to allow pt to return to pickleball & weights without pain. LTG Duration by 03/12/18 Assessment Summary Assessment Pt felt better with manual therapy. She had some difficulty with staggered stance on balance board. Improved performance w/hurdles w/balance pods. Physical Therapy Plan Frequency and Duration Frequency of Treatment 2x/Week Duration of Treatment 2 months Plan of Care Start Date 01/10/18 Plan of Care End Date 03/12/18 Next Visit Focus/Plan Next Note Type Treatment Note Next Visit Plan Balance training and core strengthening, continue current POC Please Sign and Return: I have reviewed this Plan of Care and certify that the skilled therapy services above are required to meet the patient?s needs. Physician Signature Date Printed Name and Credentials Clinical Instructor Signature Printed Name and Credentials
--- NOTE | 2018-02-07 11:24 | PT.OTN ---
Current Diagnoses Spondylolisthesis, lumbar region (02/07/18) Other spondylosis with radiculopathy, lumbar region (02/07/18) Spinal stenosis, lumbar region without neurogenic claudication (02/07/18) Physical Therapy Treatment Note PT-OP-A Visit Information Start: 01/10/18 09:51 Freq: Status: Active Protocol: Document 02/07/18 10:50 [facility] (Rec: 02/07/18 11:07 [facility] [id number]) Out-Patient Physical Therapy Visit Information Visit Information Visit Type Treatment Note Visit Start Time 10:35 Visit Stop Time 11:15 Total Visit Minutes 40 Visit Number 8/10 Number of SALES DEVELOPMENT MANAGER Visits 0 PT-OP-B Current Condition Start: 01/10/18 09:51 Freq: Status: Active Protocol: Document 01/10/18 10:10 [facility] (Rec: 01/12/18 15:53 [facility] [id number]) Current Condition History of Current Condition Onset Date 11/14/17 Current Complaints LB feels weak History of Current Condition Pt had TLIF on 11/14/17 of L3-4 , L4-5 that she reports the MD told her is healing well. Pt reports last tuesday she tripped over a rug and the next day her L shoulder was very painful so she went to the ER, but is fine now. Main complaint is weakness in back and dec balance.S ehw asnts to returnt o pickleball & weight exercsies. Treatment Goals Patient/Caregiver Goals Return to pickleball & weights & improve balance Prior Functional Status Baseline Function- Recreation/Hobbies played pickleball & did weights Current Functional Impairments (Reported) Functional Limitations- Recreation/ unable to do weights or play Hobbies pickleball PT-OP-C Subjective Start: 01/10/18 09:51 Freq: Status: Active Protocol: Document 02/07/18 10:50 [facility] (Rec: 02/07/18 11:07 [facility] [id number]) OP-PT Subjective Patient Comments Patient Comments Reports she went on a long walk and noted back was tired adn buring. PT-OP-G Mobility & Gait Start: 01/10/18 09:51 Freq: Status: Active Protocol: Document 01/10/18 10:10 [facility] (Rec: 01/12/18 15:53 [facility] [id number]) OP Gait Assessment Comments Gait Comments Pt has dec push off bilaterally. No AD PT-OP-J Posture/Palpation/Skin Start: 01/10/18 09:51 Freq: Status: Active Protocol: Document 01/10/18 10:10 [facility] (Rec: 01/12/18 15:53 [facility] [id number]) Posture Evaluation Comments Posture Comments Inc kyphosis Skin Assessment Incisional Assessment Incision Appearance/Comments Incision is healing well PT-OP-M Strength Start: 01/10/18 09:51 Freq: Status: Active Protocol: Document 01/10/18 10:10 [facility] (Rec: 01/10/18 10:27 [facility] [id number]) Hip Strength Hip Manual Muscle Testing Right Flexion (L2) 4 Good Extension (S1) 4- Good- Abduction 4 Good External Rotation 4 Good Internal Rotation 4 Good Left Flexion (L2) 4 Good Extension (S1) 4- Good- Abduction 4- Good- External Rotation 4 Good Internal Rotation 5 Normal Comments Knee & ankle strength grossly 5/5 (B) PT-OP-Q Treatments Start: 01/10/18 09:51 Freq: Status: Active Protocol: Document 02/07/18 10:50 [facility] (Rec: 02/07/18 11:07 [facility] [id number]) Cardio Equipment Recumbent Elliptical (Biodex) Duration (Minutes) 6 Resistance 8 Gym Equipment Shuttle Balance 1 Details red clips Comments WBOS (EO/EC), NBOSStaggered stance, Lateral weight shift Therapeutic Exercises Supine Exercises 5 Supine Exercise Name bent double knee lift Reps/Minutes to fatigue 3 Supine Exercise Name scissors to bugs Reps/Minutes to fatigue 2 Supine Exercise Name bridge with march Reps/Minutes to fatigue Standing Exercises 4 Standing Exercise Name lunge- forward Reps/Minutes 4x20ft 2 Standing Exercise Name fwd/back walk Resistance red Reps/Minutes 2x20ft 1 Standing Exercise Name sidesteps Resistance red Reps/Minutes 2x20ft Other Exercises 1 Other Exercise Name quadruped hip ext Reps/Minutes to fatigue PT-OP-T Assessment and Plan Start: 01/10/18 09:51 Freq: Status: Active Protocol: Document 02/07/18 10:50 [facility] (Rec: 02/07/18 11:23 [facility] [id number]) Physical Therapy Assessment Goals Two Impairment Pt feels dec balance Intermediate Goal (LTG) Pt will be able to score 22/24 on DGI LTG Duration by 03/12/18 One Impairment strength Short Term Goal (STG) Indep with HEP STG Duration by 02/10/18 Supervisor Blueprinting And Photocopy Goal (LTG) Increased strength to 5/5 to allow pt to return to pickleball & weights without pain. LTG Duration by 03/12/18 Assessment Summary Assessment Pt did better with balance board today with dec difficulty. Physical Therapy Plan Frequency and Duration Frequency of Treatment 2x/Week Duration of Treatment 2 months Plan of Care Start Date 01/10/18 Plan of Care End Date 03/12/18 Next Visit Focus/Plan Next Note Type Treatment Note Next Visit Plan Balance training and core strengthening Please Sign and Return: I have reviewed this Plan of Care and certify that the skilled therapy services above are required to meet the patient?s needs. Physician Signature Date Printed Name and Credentials Clinical Instructor Signature Printed Name and Credentials
--- NOTE | 2018-02-09 12:03 | PT.OTN ---
Current Diagnoses Spondylolisthesis, lumbar region (02/09/18) Other spondylosis with radiculopathy, lumbar region (02/09/18) Spinal stenosis, lumbar region without neurogenic claudication (02/09/18) Physical Therapy Treatment Note PT-OP-A Visit Information Start: 01/10/18 09:51 Freq: Status: Active Protocol: Document 02/09/18 11:15 [facility] (Rec: 02/09/18 12:03 [facility] [id number]) Out-Patient Physical Therapy Visit Information Visit Information Visit Type Treatment Note Visit Start Time 11:15 Visit Stop Time 11:55 Total Visit Minutes 40 Visit Number 9/10 Number of VASCULAR PHYSICIAN Visits 0 PT-OP-B Current Condition Start: 01/10/18 09:51 Freq: Status: Active Protocol: Document 01/10/18 10:10 [facility] (Rec: 01/12/18 15:53 [facility] [id number]) Current Condition History of Current Condition Onset Date 11/14/17 Current Complaints LB feels weak History of Current Condition Pt had TLIF on 11/14/17 of L3-4 , L4-5 that she reports the MD told her is healing well. Pt reports last tuesday she tripped over a rug and the next day her L shoulder was very painful so she went to the ER, but is fine now. Main complaint is weakness in back and dec balance.S ehw asnts to returnt o pickleball & weight exercsies. Treatment Goals Patient/Caregiver Goals Return to pickleball & weights & improve balance Prior Functional Status Baseline Function- Recreation/Hobbies played pickleball & did weights Current Functional Impairments (Reported) Functional Limitations- Recreation/ unable to do weights or play Hobbies pickleball PT-OP-C Subjective Start: 01/10/18 09:51 Freq: Status: Active Protocol: Document 02/09/18 11:15 [facility] (Rec: 02/09/18 12:03 [facility] [id number]) OP-PT Subjective Patient Comments Patient Comments no change in back pain. PT-OP-G Mobility & Gait Start: 01/10/18 09:51 Freq: Status: Active Protocol: Document 01/10/18 10:10 [facility] (Rec: 01/12/18 15:53 [facility] [id number]) OP Gait Assessment Comments Gait Comments Pt has dec push off bilaterally. No AD PT-OP-J Posture/Palpation/Skin Start: 01/10/18 09:51 Freq: Status: Active Protocol: Document 01/10/18 10:10 [facility] (Rec: 01/12/18 15:53 [facility] [email or web address]) Posture Evaluation Comments Posture Comments Inc kyphosis Skin Assessment Incisional Assessment Incision Appearance/Comments Incision is healing well PT-OP-M Strength Start: 01/10/18 09:51 Freq: Status: Active Protocol: Document 02/09/18 11:15 [facility] (Rec: 02/09/18 12:03 [facility] [id number]) Hip Strength Hip Manual Muscle Testing Right Flexion (L2) 4+ Good+ Abduction 4 Good External Rotation 4+ Good+ Internal Rotation 5 Normal Comments knee & ankle strength 5/5 B Left Flexion (L2) 5 Normal Abduction 4 Good External Rotation 4+ Good+ Internal Rotation 5 Normal Comments DGI 22/24 PT-OP-Q Treatments Start: 01/10/18 09:51 Freq: Status: Active Protocol: Document 02/09/18 11:15 [facility] (Rec: 02/09/18 12:03 [facility] [id number]) Cardio Equipment Recumbent Elliptical (Biodex) Duration (Minutes) 6 Resistance 8 Therapeutic Exercises Supine Exercises 5 Supine Exercise Name bent double knee lift Reps/Minutes to fatigue 4 Supine Exercise Name abdominal series flex Sidelying Exercises 1 Sidelying Exercise Name abd Reps/Minutes 15 Manual Therapy Treatment Soft Tissue Mobilization 2 Body Location QL L Mobilization Type Rolling Intensity/Depth Moderate Body Position Prone 1 Body Location scar tissue Mobilization Type Rolling Intensity/Depth Moderate Body Position Sidelying PT-OP-T Assessment and Plan Start: 01/10/18 09:51 Freq: Status: Active Protocol: Document 02/09/18 11:15 [facility] (Rec: 02/09/18 12:03 [facility] [id number]) Physical Therapy Assessment Goals Two Impairment Pt feels dec balance Group Home Goal (LTG) Pt will be able to score 22/24 on DGI ->progress to 24/24 LTG Duration achieved; new by 03/12/18 One Impairment strength Short Term Goal (STG) Indep with HEP STG Duration by 02/10/18 Group Home Goal (LTG) Increased strength to 5/5 to allow pt to return to pickleball & weights without pain. LTG Duration by 03/12/18 Assessment Summary Assessment Pt is doing well with balance, but cont to have dec core & glute strength. Pt is encouraged to do exercises while watching TV at home. Physical Therapy Plan Frequency and Duration Frequency of Treatment 2x/Week Duration of Treatment 2 months Plan of Care Start Date 01/10/18 Plan of Care End Date 03/12/18 Next Visit Focus/Plan Next Note Type Treatment Note Next Visit Plan Balance training and core strengthening Please Sign and Return: I have reviewed this Plan of Care and certify that the skilled therapy services above are required to meet the patient?s needs. Physician Signature Date Printed Name and Credentials Clinical Instructor Signature Printed Name and Credentials 3
--- NOTE | 2018-03-17 08:39 | PT.OPDS ---
Current Diagnoses Spondylolisthesis, lumbar region (02/09/18) Other spondylosis with radiculopathy, lumbar region (02/09/18) Spinal stenosis, lumbar region without neurogenic claudication (02/09/18) Provider Visit Care Team Role Provider Type Ronni Ya MD Family Provider Physician Primary Care Provider Specialty: Family Practice Address: [address] [place] [address], [id number] Email: [email or web address] Loredo MD Attending Provider Physician Specialty: Orthopedic Surgery Address: [address] [place] [address], [id number] Email: [email or web address] Visit Number Visit Number 05/08 Discharge Summary PT-OP-B Current Condition Start: 01/10/18 09:51 Freq: Status: Active Protocol: Document 01/10/18 10:10 [facility] (Rec: 01/12/18 15:53 [facility] [id number]) Current Condition History of Current Condition Onset Date 11/14/17 Current Complaints LB feels weak History of Current Condition Pt had TLIF on 11/14/17 of L3-4 , L4-5 that she reports the MD told her is healing well. Pt reports last tuesday she tripped over a rug and the next day her L shoulder was very painful so she went to the ER, but is fine now. Main complaint is weakness in back and dec balance.S ehw asnts to returnt o pickleball & weight exercsies. Treatment Goals Patient/Caregiver Goals Return to pickleball & weights & improve balance Prior Functional Status Baseline Function- Recreation/Hobbies played pickleball & did weights Current Functional Impairments (Reported) Functional Limitations- Recreation/ unable to do weights or play Hobbies pickleball PT-OP-C Subjective Start: 01/10/18 09:51 Freq: Status: Active Protocol: Document 02/09/18 11:15 [facility] (Rec: 02/09/18 12:03 [facility] [id number]) OP-PT Subjective Patient Comments Patient Comments no change in back pain. PT-OP-G Mobility & Gait Start: 01/10/18 09:51 Freq: Status: Active Protocol: Document 01/10/18 10:10 [facility] (Rec: 01/12/18 15:53 [facility] [id number]) OP Gait Assessment Comments Gait Comments Pt has dec push off bilaterally. No AD PT-OP-J Posture/Palpation/Skin Start: 01/10/18 09:51 Freq: Status: Active Protocol: Document 01/10/18 10:10 [facility] (Rec: 01/12/18 15:53 [facility] [email or web address]) Posture Evaluation Comments Posture Comments Inc kyphosis Skin Assessment Incisional Assessment Incision Appearance/Comments Incision is healing well PT-OP-M Strength Start: 01/10/18 09:51 Freq: Status: Active Protocol: Document 02/09/18 11:15 [facility] (Rec: 02/09/18 12:03 [facility] [id number]) Hip Strength Hip Manual Muscle Testing Right Flexion (L2) 4+ Good+ Abduction 4 Good External Rotation 4+ Good+ Internal Rotation 5 Normal Comments knee & ankle strength 5/5 B Left Flexion (L2) 5 Normal Abduction 4 Good External Rotation 4+ Good+ Internal Rotation 5 Normal Comments DGI 22/24 PT-OP-T Assessment and Plan Start: 01/10/18 09:51 Freq: Status: Active Protocol: Document 03/17/18 08:38 [facility] (Rec: 03/17/18 08:39 [facility] [id number]) Physical Therapy Assessment Goals Two Impairment Pt feels dec balance Programs Manager Goal (LTG) Pt will be able to score 22/24 on DGI ->progress to 24/24 LTG Duration achieved; new by 03/12/18 One Impairment strength Short Term Goal (STG) Indep with HEP STG Duration by 02/10/18 Programs Manager Goal (LTG) Increased strength to 5/5 to allow pt to return to pickleball & weights without pain. LTG Duration by 03/12/18 Assessment Summary Assessment Pt progressed well with balance and strengthening, but had not returned to pickleball by end of therapy sessions. She cancelled further appointments and wanted to hold PT d/t dealing with new knee injury. Physical Therapy Plan Discharge Physical Therapy Discharge Reasons No Longer Attending PT Discharge Comments Pt cancelled appointments d/t dealing with new knee injury
== END 2018-05-17 12:23 ==
LOC: PHYS 11:15
PROVIDERS: Family Provider Family Medicine; PCP Family Medicine; Visit Provider Orthopaedic Surgery Orthopaedic Surgery of the Spine
DX: M43.16 Spondylolisthesis, lumbar region (principal); M48.061 Spinal stenosis, lumbar region without neurogenic claudication; M47.26 Other spondylosis with radiculopathy, lumbar region
CPT/HCPCS: 97110; 97112; 97140; 97161; 97535

== ENCOUNTER → 2018-03-09 06:40 | Outpatient (CLI) | payer OTHER, SELFPAY ==
--- NOTE | 2018-03-09 | DI.MRI.S_ITS ---
PROCEDURE: MR KNEE RT WO CON INDICATIONS: Medial Right knee pain TECHNIQUE: Noncontrast sagittal PD fast spin echo and T2 fast spin echo with fat saturation, sagittal 3-D FLASH with fat saturation; coronal T1 spin echo and PD fast spin echo with fat saturation, and axial PD fast spin echo with fat saturation through the knee. COMPARISON: [facility] [place], CR, XR KNEE ARTHRITIC SERIES RT, 02/27/2018, 11:23. FINDINGS: Image quality: Diagnostic Bones and joint: There is no acute fracture or dislocation. No suspicious osseous lesions are evident. There is a very small joint effusion with an associated small Valero cyst. Mild edema about the Valero cyst is noted. There is mild heterogeneity identified involving the hyaline articular cartilage of the knee. There may be subtle areas of cartilaginous fissuring. However, no large cartilaginous defects are identified. Cruciate ligaments: The anterior and posterior cruciate ligaments are intact. However, there is increased signal and mild thickening involving the anterior cruciate ligament. Menisci: There is increased signal identified along the periphery of the lateral meniscus without articular surface tear evident. There is low-grade partial-thickness tearing involving the posterior root of the medial meniscus. An additional oblique tear extends into the inferior articular surface through the body and posterior horn of the medial meniscus. No displaced fragments are identified. Medial structures: The medial collateral ligament is intact. The semimembranosus tendon insertion is intact. The imaged portions of the pes anserinus tendons are unremarkable. No significant fluid is contained within the pes anserinus bursa. There is a small medial patellar plica. Lateral structures: The popliteal tendon is intact. The lateral collateral ligament proper (fibular collateral ligament) and the proximal tibiofibular ligaments are intact. The distal aspect of the biceps femoris tendon and the iliotibial band are intact. Nonspecific thickening involving the insertion of the iliotibial band is noted. Anterior structures: The quadriceps and patellar tendons are intact. There is slightly increased signal present involving the proximal aspect of the patellar tendon. There is mild edema within the infrapatellar fat pad. IMPRESSION: 1. Small nondisplaced tear involving the body and posterior horn of the medial meniscus with inferior articular surface extension. 2. Possible low-grade anterior cruciate ligament sprain. 3. Mild patellar tendinopathy. 4 patent small knee joint effusion with an associated Valero's cyst. 5. Heterogeneity of the hyaline articular cartilage of the knee without large full thickness cartilaginous defects evident. Dictated by: Florin Ennis M.D. on 03/09/2018 at 8:31 Approved by: Florin Ennis M.D. on 03/09/2018 at 8:37
== END ==
PROVIDERS: Family Provider Family Medicine; PCP Family Medicine; Visit Provider Orthopaedic Surgery
DX: S83.241A Other tear of medial meniscus, current injury, right knee, initial encounter (principal); M71.21 Synovial cyst of popliteal space [Baker], right knee; M25.561 Pain in right knee
CPT/HCPCS: 73721

== ENCOUNTER → 2018-05-20 09:34 | Outpatient (CLI) | payer OTHER, SELFPAY ==
--- NOTE | 2018-05-20 | DI.MG.S_ITS ---
BILATERAL DIGITAL SCREENING MAMMOGRAM 3D/2D WITH CAD: 05/20/2018 CLINICAL: Routine screening. Family history of breast cancer. Comparison is made to exams dated: 04/12/2017 mammogram, 01/20/2016 mammogram, and 01/09/2015 mammogram - [facility]. There are scattered fibroglandular elements in both breasts. Current study was also evaluated with a Computer Aided Detection (CAD) system. No significant masses, calcifications, or other findings are seen in either breast. There has been no significant interval change. IMPRESSION: NEGATIVE There is no mammographic evidence of malignancy. A 1 year screening mammogram is recommended. This exam was interpreted at Station ID: [id number]. NOTE: For mammograms, a report in lay terms will be sent to the patient. Approximately 15% of breast malignancies will not be visualized mammographically. In the management of a palpable breast mass, a negative mammogram must not discourage biopsy of a clinically suspicious lesion. Electronically Signed By: Anjelica shields/berna:05/22/2018 08:31:13 letter sent: Normal Exam ACR BI-RADS Category 1: Negative [id number]
== END ==
PROVIDERS: Family Provider Family Medicine; PCP Family Medicine; Visit Provider Family Medicine
DX: Z12.31 Encounter for screening mammogram for malignant neoplasm of breast (principal); Z80.3 Family history of malignant neoplasm of breast
CPT/HCPCS: 77063; 77067

== ENCOUNTER 2018-08-15 13:00 | Outpatient (RCR) | payer OTHER, SELFPAY ==
--- NOTE | 2018-07-27 15:26 | PT.OIE ---
Current Diagnoses Unilateral primary osteoarthritis, right knee (07/27/18) Other specified postprocedural states (07/27/18) Past Medical History (Last Reviewed 03/16/18 @ 16:46 by VERONICA Obregon) Excessive daytime sleepiness (Chronic ~1995) Insomnia, persistent (Chronic ~1995) Obstructive sleep apnea of adult (Chronic ~1995) Restless legs syndrome (RLS) (Chronic ~1995) Snoring (Chronic ~1995) Past Surgical History (Last Reviewed 03/16/18 @ 16:46 by VERONICA Obregon) History of cataract removal with insertion of prosthetic lens History of knee replacement (06/04/11) Status post appendectomy Status post hysterectomy Status post knee surgery Status post knee surgery Provider Visit Care Team Role Provider Type Ronni Ya MD Family Provider Physician Primary Care Provider Specialty: Family Practice Address: [address] [place] [address], [address] Email: [email or web address] Milly Noyola PA-C Attending Provider Physician Lamp Stack Developer Specialty: Orthopedic Surgery Address: [address] [place] [address], [address] Email: [email or web address] Initial Evaluation PT-OP-A Visit Information Start: 07/27/18 07:37 Freq: Status: Active Protocol: Document 07/27/18 13:00 AMB (Rec: 07/27/18 14:31 [facility] [email or web address]) Out-Patient Physical Therapy Visit Information Visit Information Visit Type Initial Evaluation Visit Start Time 13:00 Visit Stop Time 13:55 Total Visit Minutes 55 Visit Number 1 Evaluation Information Evaluation Date 07/27/18 PT-OP-B Current Condition Start: 07/27/18 07:37 Freq: Status: Active Protocol: Document 07/27/18 13:00 AMB (Rec: 07/27/18 14:31 AM[facility] [email or web address]) Current Condition History of Current Condition Onset Date 07/04/18 Current Complaints s/p R partial knee History of Current Condition The patient had a meniscectomy and noticed increased pain for 3 weeks until she had a partial knee replacement. She states it was a day surgery and she has not had any PT yet and has not been doing exercises other than walking around. She is not using an assistive device. Prior Treatments and Tests Earlier in the year she had back surgery and feels that prior to that she was exercising well (playing pickle ball, going to the gym) but she has not been able to get back to her prior level due to her back still feeling weak and this knee pain. Prior Functional Status Baseline Function- ADL's Independent Current Functional Impairments (Reported) Functional Limitations- ADL's Difficulty going down stairs. Difficulty with car transfer. Difficulty returning to work out routine. Difficulty with extended standing/walking. Personal Factors Other Personal Factors That May Effect Recent back surgery. Therapy/Recovery PT-OP-C Subjective Start: 07/27/18 07:37 Freq: Status: Active Protocol: Document 07/27/18 13:00 AMB (Rec: 07/27/18 15:08 AMB [email or web address]) Patient Questionnaires Lower Extremity Functional Scale LEFS Score 41 LEFS Impairment 40 to 59% Impaired (Score 32- 47) PT-OP-G Mobility & Gait Start: 07/27/18 07:37 Freq: Status: Active Protocol: Document 07/27/18 13:00 AMB (Rec: 07/27/18 15:08 AMB [email or web address]) OP Gait Assessment Comments Gait Comments Step to gait with descending stairs. Pt is ambulating without AD with slightly decreased knee flexion in swing and a lack of full extension in stance. Less weightbearing on the R LE. PT-OP-J Posture/Palpation/Skin Start: 07/27/18 07:37 Freq: Status: Active Protocol: Document 07/27/18 13:00 AMB (Rec: 07/27/18 15:08 AMB [email or web address]) Palpation Assessment Location One Palpation Location R knee Palpation Findings Edema Tenderness Palpation Details Tenderness over scar which is healing well, with adhesions and small scabs still present. Pitting edemal throughout leg, worse at ankle. PT-OP-K Range of Motion Start: 07/27/18 07:37 Freq: Status: Active Protocol: Document 07/27/18 13:00 AMB (Rec: 07/27/18 15:08 AMB [email or web address]) Knee Goniometric Range of Motion Knee Measured in Degrees Left Patient Position Supine Flexion Passive (degrees) 117 Extension Passive (degrees) 0 Right Patient Position Supine Flexion Passive (degrees) 95 Extension Passive (degrees) 5 PT-OP-M Strength Start: 07/27/18 07:37 Freq: Status: Active Protocol: Document 07/27/18 13:00 AMB (Rec: 07/27/18 15:08 AMB [email or web address]) Hip Strength Hip Manual Muscle Testing Right Flexion (L2) 4 Good Extension (S1) 4 Good Abduction 4 Good Adduction 4 Good Left Flexion (L2) 4+ Good+ Extension (S1) 4+ Good+ Abduction 4+ Good+ Adduction 4+ Good+ Knee Strength Knee Manual Muscle Testing Right Flexion (S2) 4+ Good+ Extension (L3) 4+ Good+ Left Flexion (S2) 5 Normal Extension (L3) 5 Normal PT-OP-Q Treatments Start: 07/27/18 07:37 Freq: Status: Active Protocol: Document 07/27/18 13:00 AMB (Rec: 07/27/18 15:14 AMB [email or web address]) Therapeutic Exercises Supine Exercises 3 Supine Exercise Name SLR Reps/Minutes 10 2 Supine Exercise Name bridges Reps/Minutes 10 1 Supine Exercise Name heel slides Reps/Minutes 10 Manual Therapy Treatment Soft Tissue Mobilization 1 Body Location R knee Mobilization Type Cross-Friction Body Position Supine Comments scar massage Manual Techniques 1 Type PROM with OP Body Location R knee Body Position Supine Comments Flexion and extension PT-OP-R Modalities Start: 07/27/18 07:37 Freq: Status: Active Protocol: Document 07/27/18 13:00 AMB (Rec: 07/27/18 15:14 AMB [email or web address]) Electric Stimulation Electric Stimulation Interferential Current (IFC) Body Location R knee Duration (Minutes) 15 Combined With Heat/Cold Cold Pack PT-OP-T Assessment and Plan Start: 07/27/18 07:37 Freq: Status: Active Protocol: Document 07/27/18 13:00 AMB (Rec: 07/27/18 15:26 AMB [email or web address]) Physical Therapy Assessment Rehab Potential Rehabilitation Potential Good Evaluation Complexity Number of Personal Factors/Comorbidities 1-2 Number of Body Systems Impaired 4 or More Clinical Presentation at Evaluation Evolving Impairments Impairments Functional Activities Gait Pain ROM Soft Tissue Mobility Strength Goals Four Impairment swelling Short Term Goal (STG) The patient will be independent with swelling management program so that she no longer has pitting edema. STG Duration 4 weeks Three Impairment gait Short Term Goal (STG) The patient will ascend and descend a flight of stairs with 1 foot per step without an increase in knee pain. STG Duration 4 weeks Two Impairment strength Short Term Goal (STG) The patient will be independent with a LE strengthening HEP. STG Duration 4 weeks Intermediate Goal (LTG) The patient will perform a partial squat without an increase in knee pain and with good body mechanics. LTG Duration 8 weeks One Impairment ROM Intermediate Goal (LTG) The patient will have 115 degrees of active knee flexion . LTG Duration 8 weeks Assessment Summary Assessment The patient attends physical therapy s/p R partial knee arthroplasty. She has been walking without an assistive device, but her swelling and her restricted terminal extension and flexion are concerning. She will benefit from a PT program to get her back to her previous level of function, but her recent back surgery and continued core weakness may impact the speed of her recovery. Physical Therapy Plan Frequency and Duration Frequency of Treatment 2x/Week Duration of Treatment 8 weeks Plan of Care Start Date 07/27/18 Plan of Care End Date 09/21/17 Therapeutic Interventions Therapeutic Interventions Aquatic Therapy Balance Training Gait Training Home Exercise Program Joint Mobilizations Manual Therapy Neuromuscular Re-education Self-Care/Home Management Soft Tissue Mobilization Therapeutic Activities Therapeutic Exercises Modalities Cold Pack/Ice Massage Electric Stimulation Next Visit Focus/Plan Next Note Type Treatment Note Next Visit Plan Progress knee flexion, start with the bike, work towards decreasing edema.
--- NOTE | 2018-07-27 15:28 | PT.OPPOC ---
Current Diagnoses Unilateral primary osteoarthritis, right knee (07/27/18) Other specified postprocedural states (07/27/18) Provider Visit Care Team Role Provider Type Ronni Ya MD Family Provider Physician Primary Care Provider Specialty: Family Practice Address: [address] [place] [address], [address] Email: [email or web address] Milly Noyola PA-C Attending Provider Physician Industrial Servicer Specialty: Orthopedic Surgery Address: [address] [place] [address], [address] Email: [email or web address] Plan Of Care PT-OP-T Assessment and Plan Start: 07/27/18 07:37 Freq: Status: Active Protocol: Document 07/27/18 13:00 AMB (Rec: 07/27/18 15:26 AMB [email or web address]) Physical Therapy Assessment Rehab Potential Rehabilitation Potential Good Evaluation Complexity Number of Personal Factors/Comorbidities 1-2 Number of Body Systems Impaired 4 or More Clinical Presentation at Evaluation Evolving Impairments Impairments Functional Activities Gait Pain ROM Soft Tissue Mobility Strength Goals Four Impairment swelling Short Term Goal (STG) The patient will be independent with swelling management program so that she no longer has pitting edema. STG Duration 4 weeks Three Impairment gait Short Term Goal (STG) The patient will ascend and descend a flight of stairs with 1 foot per step without an increase in knee pain. STG Duration 4 weeks Two Impairment strength Short Term Goal (STG) The patient will be independent with a LE strengthening HEP. STG Duration 4 weeks Prison Goal (LTG) The patient will perform a partial squat without an increase in knee pain and with good body mechanics. LTG Duration 8 weeks One Impairment ROM Prison Goal (LTG) The patient will have 115 degrees of active knee flexion . LTG Duration 8 weeks Assessment Summary Assessment The patient attends physical therapy s/p R partial knee arthroplasty. She has been walking without an assisitve device, but her swelling and her restricted terminal extension and flexion are concerning. She will benefit from a PT program to get her back to her previous level of function, but her recent back surgery and continued core weakness may impact the speed of her recovery. Physical Therapy Plan Frequency and Duration Frequency of Treatment 2x/Week Duration of Treatment 8 weeks Plan of Care Start Date 07/27/18 Plan of Care End Date 09/21/17 Therapeutic Interventions Therapeutic Interventions Aquatic Therapy Balance Training Gait Training Home Exercise Program Joint Mobilizations Manual Therapy Neuromuscular Re-education Self-Care/Home Management Soft Tissue Mobilization Therapeutic Activities Therapeutic Exercises Modalities Cold Pack/Ice Massage Electric Stimulation Next Visit Focus/Plan Next Note Type Treatment Note Next Visit Plan Progress knee flexion, start with the bike, work towards decreasing edema. Plan of Care Dates Plan of Care Start Date 07/27/18 Plan of Care End Date 09/21/17 Please Sign and Return: I have reviewed this Plan of Care and certify that the skilled therapy services above are required to meet the patient?s needs. Physician Signature Date Printed Name and Credentials Clinical Instructor Signature Printed Name and Credentials
--- NOTE | 2018-08-01 13:54 | PT.OTN ---
Current Diagnoses Unilateral primary osteoarthritis, right knee (08/01/18) Other specified postprocedural states (08/01/18) Physical Therapy Treatment Note PT-OP-A Visit Information Start: 07/27/18 07:37 Freq: Status: Active Protocol: Document 08/01/18 13:00 AMB (Rec: 08/01/18 13:08 AMB [id number]) Out-Patient Physical Therapy Visit Information Visit Information Visit Type Treatment Note Visit Start Time 13:00 Visit Stop Time 13:55 Visit Number 2 Evaluation Information Evaluation Date 07/27/18 PT-OP-B Current Condition Start: 07/27/18 07:37 Freq: Status: Active Protocol: Document 07/27/18 13:00 AMB (Rec: 07/27/18 14:31 AMB [email or web address]) Current Condition History of Current Condition Onset Date 07/04/18 Current Complaints s/p R partial knee History of Current Condition The patient had a meniscectomy and noticed increased pain for 3 weeks until she had a partial knee replacement. She states it was a day surgery and she has not had any PT yet and has not been doing exercises other than walking around. She is not using an assistive device. Prior Treatments and Tests Earlier in the year she had back surgery and feels that prior to that she was exercising well (playing pickle ball, going to the gym) but she has not been able to get back to her prior level due to her back still feeling weak and this knee pain. Prior Functional Status Baseline Function- ADL's Independent Current Functional Impairments (Reported) Functional Limitations- ADL's Difficulty going down stairs. Difficulty with car transfer. Difficulty returning to work out routine. Difficulty with extended standing/walking. Personal Factors Other Personal Factors That May Effect Recent back surgery. Therapy/Recovery PT-OP-C Subjective Start: 07/27/18 07:37 Freq: Status: Active Protocol: Document 08/01/18 13:00 AMB (Rec: 08/01/18 13:08 AMB [id number]) OP-PT Subjective Patient Comments Patient Comments The patient reports she has not done her exercises. She has been walking. PT-OP-G Mobility & Gait Start: 07/27/18 07:37 Freq: Status: Active Protocol: Document 07/27/18 13:00 AMB (Rec: 07/27/18 15:08 AMB [email or web address]) OP Gait Assessment Comments Gait Comments Step to gait with descending stairs. Pt is ambulating without AD with slightly decreased knee flexion in swing and a lack of full extension in stance. Less weightbearing on the R LE. PT-OP-J Posture/Palpation/Skin Start: 07/27/18 07:37 Freq: Status: Active Protocol: Document 07/27/18 13:00 AMB (Rec: 07/27/18 15:08 AMB [email or web address]) Palpation Assessment Location One Palpation Location R knee Palpation Findings Edema Tenderness Palpation Details Tenderness over scar which is healing well, with adhesions and small scabs still present. Pitting edemal throughout leg, worse at ankle. PT-OP-K Range of Motion Start: 07/27/18 07:37 Freq: Status: Active Protocol: Document 07/27/18 13:00 AMB (Rec: 07/27/18 15:08 AMB [email or web address]) Knee Goniometric Range of Motion Knee Measured in Degrees Left Patient Position Supine Flexion Passive (degrees) 117 Extension Passive (degrees) 0 Right Patient Position Supine Flexion Passive (degrees) 95 Extension Passive (degrees) 5 PT-OP-M Strength Start: 07/27/18 07:37 Freq: Status: Active Protocol: Document 07/27/18 13:00 AMB (Rec: 07/27/18 15:08 AMB [email or web address]) Hip Strength Hip Manual Muscle Testing Right Flexion (L2) 4 Good Extension (S1) 4 Good Abduction 4 Good Adduction 4 Good Left Flexion (L2) 4+ Good+ Extension (S1) 4+ Good+ Abduction 4+ Good+ Adduction 4+ Good+ Knee Strength Knee Manual Muscle Testing Right Flexion (S2) 4+ Good+ Extension (L3) 4+ Good+ Left Flexion (S2) 5 Normal Extension (L3) 5 Normal PT-OP-Q Treatments Start: 07/27/18 07:37 Freq: Status: Active Protocol: Document 08/01/18 13:00 AMB (Rec: 08/01/18 13:09 AMB [id number]) Cardio Equipment Recumbent Bicycle Duration (Minutes) 10 Resistance 2 Seat Position 1 Gym Equipment Shuttle Recovery Unilateral Squats Resistance 50# Bilateral Squats Resistance 75# Therapeutic Exercises Supine Exercises 3 Supine Exercise Name SLR Reps/Minutes 10 2 Supine Exercise Name bridges Reps/Minutes 10 1 Supine Exercise Name heel slides Reps/Minutes 10 Manual Therapy Treatment Soft Tissue Mobilization 1 Body Location R knee Mobilization Type Cross-Friction Body Position Supine Comments scar massage Manual Techniques 1 Type PROM with OP Body Location R knee Body Position Supine Comments Flexion and extension PT-OP-R Modalities Start: 07/27/18 07:37 Freq: Status: Active Protocol: Document 07/27/18 13:00 AMB (Rec: 07/27/18 15:14 AMB [email or web address]) Electric Stimulation Electric Stimulation Interferential Current (IFC) Body Location R knee Duration (Minutes) 15 Combined With Heat/Cold Cold Pack PT-OP-T Assessment and Plan Start: 07/27/18 07:37 Freq: Status: Active Protocol: Document 08/01/18 13:00 AMB (Rec: 08/01/18 13:53 AMB [email or web address]) Physical Therapy Assessment Assessment Summary Assessment The patient tolerated her exercises, but still has pitting edema and has not done her HEP. Will require more encouragement. Physical Therapy Plan Next Visit Focus/Plan Next Note Type Treatment Note Next Visit Plan Progress HEP as able.
--- NOTE | 2018-08-03 15:01 | PT.OTN ---
Current Diagnoses Unilateral primary osteoarthritis, right knee (08/03/18) Other specified postprocedural states (08/03/18) Physical Therapy Treatment Note PT-OP-A Visit Information Start: 07/27/18 07:37 Freq: Status: Active Protocol: Document 08/03/18 13:00 AMB (Rec: 08/03/18 13:11 AMB [id number]) Out-Patient Physical Therapy Visit Information Visit Information Visit Type Treatment Note Visit Start Time 13:00 Visit Stop Time 13:55 Visit Number 3 Evaluation Information Evaluation Date 07/27/18 PT-OP-B Current Condition Start: 07/27/18 07:37 Freq: Status: Active Protocol: Document 07/27/18 13:00 AMB (Rec: 07/27/18 14:31 AMB [email or web address]) Current Condition History of Current Condition Onset Date 07/04/18 Current Complaints s/p R partial knee History of Current Condition The patient had a meniscectomy and noticed increased pain for 3 weeks until she had a partial knee replacement. She states it was a day surgery and she has not had any PT yet and has not been doing exercises other than walking around. She is not using an assistive device. Prior Treatments and Tests Earlier in the year she had back surgery and feels that prior to that she was exercising well (playing pickle ball, going to the gym) but she has not been able to get back to her prior level due to her back still feeling weak and this knee pain. Prior Functional Status Baseline Function- ADL's Independent Current Functional Impairments (Reported) Functional Limitations- ADL's Difficulty going down stairs. Difficulty with car transfer. Difficulty returning to work out routine. Difficulty with extended standing/walking. Personal Factors Other Personal Factors That May Effect Recent back surgery. Therapy/Recovery PT-OP-C Subjective Start: 07/27/18 07:37 Freq: Status: Active Protocol: Document 08/03/18 13:00 AMB (Rec: 08/03/18 13:11 AMB [id number]) OP-PT Subjective Patient Comments Patient Comments The patient has done her exercises. PT-OP-G Mobility & Gait Start: 07/27/18 07:37 Freq: Status: Active Protocol: Document 07/27/18 13:00 AMB (Rec: 07/27/18 15:08 AMB [email or web address]) OP Gait Assessment Comments Gait Comments Step to gait with descending stairs. Pt is ambulating without AD with slightly decreased knee flexion in swing and a lack of full extension in stance. Less weightbearing on the R LE. PT-OP-J Posture/Palpation/Skin Start: 07/27/18 07:37 Freq: Status: Active Protocol: Document 07/27/18 13:00 AMB (Rec: 07/27/18 15:08 AMB [email or web address]) Palpation Assessment Location One Palpation Location R knee Palpation Findings Edema Tenderness Palpation Details Tenderness over scar which is healing well, with adhesions and small scabs still present. Pitting edemal throughout leg, worse at ankle. PT-OP-K Range of Motion Start: 07/27/18 07:37 Freq: Status: Active Protocol: Document 07/27/18 13:00 AMB (Rec: 07/27/18 15:08 AMB [email or web address]) Knee Goniometric Range of Motion Knee Measured in Degrees Left Patient Position Supine Flexion Passive (degrees) 117 Extension Passive (degrees) 0 Right Patient Position Supine Flexion Passive (degrees) 95 Extension Passive (degrees) 5 PT-OP-M Strength Start: 07/27/18 07:37 Freq: Status: Active Protocol: Document 07/27/18 13:00 AMB (Rec: 07/27/18 15:08 AMB [email or web address]) Hip Strength Hip Manual Muscle Testing Right Flexion (L2) 4 Good Extension (S1) 4 Good Abduction 4 Good Adduction 4 Good Left Flexion (L2) 4+ Good+ Extension (S1) 4+ Good+ Abduction 4+ Good+ Adduction 4+ Good+ Knee Strength Knee Manual Muscle Testing Right Flexion (S2) 4+ Good+ Extension (L3) 4+ Good+ Left Flexion (S2) 5 Normal Extension (L3) 5 Normal PT-OP-Q Treatments Start: 07/27/18 07:37 Freq: Status: Active Protocol: Document 08/03/18 13:00 AMB (Rec: 08/03/18 13:18 AMB [id number]) Cardio Equipment Recumbent Bicycle Duration (Minutes) 8 Resistance 4 Seat Position 1 Gym Equipment Shuttle Recovery Unilateral Squats Resistance 50# Bilateral Squats Resistance 75# Therapeutic Exercises Supine Exercises 3 Supine Exercise Name SLR Reps/Minutes 10 1 Supine Exercise Name heel slides Reps/Minutes 10 Standing Exercises 4 Standing Exercise Name hamstring stretch Reps/Minutes 30x2 3 Standing Exercise Name calf stretch Reps/Minutes 30x2 Comments MAYNOR 2 Standing Exercise Name mini lunges Reps/Minutes 2x10 1 Standing Exercise Name mini squats Reps/Minutes 2x10 Manual Therapy Treatment Soft Tissue Mobilization 1 Body Location R knee Mobilization Type Cross-Friction Body Position Supine Comments scar massage Manual Techniques 1 Type PROM with OP Body Location R knee Body Position Supine Comments Flexion and extension Other Other Manual Treatments edema massage PT-OP-R Modalities Start: 07/27/18 07:37 Freq: Status: Active Protocol: Document 07/27/18 13:00 AMB (Rec: 07/27/18 15:14 AMB [email or web address]) Electric Stimulation Electric Stimulation Interferential Current (IFC) Body Location R knee Duration (Minutes) 15 Combined With Heat/Cold Cold Pack PT-OP-T Assessment and Plan Start: 07/27/18 07:37 Freq: Status: Active Protocol: Document 08/03/18 13:00 AMB (Rec: 08/03/18 14:58 AMB [email or web address]) Physical Therapy Assessment Assessment Summary Assessment Pt's flexion PROM has improved to 117 at end of session. Pitting edema continues. Physical Therapy Plan Next Visit Focus/Plan Next Note Type Treatment Note Next Visit Plan Progress standing exercises
--- NOTE | 2018-08-10 16:21 | PT.OTN ---
Current Diagnoses Unilateral primary osteoarthritis, right knee (08/10/18) Other specified postprocedural states (08/10/18) Physical Therapy Treatment Note PT-OP-A Visit Information Start: 07/27/18 07:37 Freq: Status: Active Protocol: Document 08/10/18 13:00 AMB (Rec: 08/10/18 13:08 AMB [id number]) Out-Patient Physical Therapy Visit Information Visit Information Visit Type Treatment Note Visit Start Time 13:00 Visit Stop Time 13:45 Total Visit Minutes 45 Visit Number 4 PT-OP-B Current Condition Start: 07/27/18 07:37 Freq: Status: Active Protocol: Document 07/27/18 13:00 AMB (Rec: 07/27/18 14:31 AMB [email or web address]) Current Condition History of Current Condition Onset Date 07/04/18 Current Complaints s/p R partial knee History of Current Condition The patient had a meniscectomy and noticed increased pain for 3 weeks until she had a partial knee replacement. She states it was a day surgery and she has not had any PT yet and has not been doing exercises other than walking around. She is not using an assistive device. Prior Treatments and Tests Earlier in the year she had back surgery and feels that prior to that she was exercising well (playing pickle ball, going to the gym) but she has not been able to get back to her prior level due to her back still feeling weak and this knee pain. Prior Functional Status Baseline Function- ADL's Independent Current Functional Impairments (Reported) Functional Limitations- ADL's Difficulty going down stairs. Difficulty with car transfer. Difficulty returning to work out routine. Difficulty with extended standing/walking. Personal Factors Other Personal Factors That May Effect Recent back surgery. Therapy/Recovery PT-OP-C Subjective Start: 07/27/18 07:37 Freq: Status: Active Protocol: Document 08/10/18 13:00 AMB (Rec: 08/10/18 13:08 AMB [email or web address]) OP-PT Subjective Patient Comments Patient Comments Patient is continuing to notice swelling in the leg. PT-OP-G Mobility & Gait Start: 07/27/18 07:37 Freq: Status: Active Protocol: Document 07/27/18 13:00 AMB (Rec: 07/27/18 15:08 AMB [email or web address]) OP Gait Assessment Comments Gait Comments Step to gait with descending stairs. Pt is ambulating without AD with slightly decreased knee flexion in swing and a lack of full extension in stance. Less weightbearing on the R LE. PT-OP-J Posture/Palpation/Skin Start: 07/27/18 07:37 Freq: Status: Active Protocol: Document 07/27/18 13:00 AMB (Rec: 07/27/18 15:08 AMB [email or web address]) Palpation Assessment Location One Palpation Location R knee Palpation Findings Edema Tenderness Palpation Details Tenderness over scar which is healing well, with adhesions and small scabs still present. Pitting edemal throughout leg, worse at ankle. PT-OP-K Range of Motion Start: 07/27/18 07:37 Freq: Status: Active Protocol: Document 07/27/18 13:00 AMB (Rec: 07/27/18 15:08 AMB [email or web address]) Knee Goniometric Range of Motion Knee Measured in Degrees Left Patient Position Supine Flexion Passive (degrees) 117 Extension Passive (degrees) 0 Right Patient Position Supine Flexion Passive (degrees) 95 Extension Passive (degrees) 5 PT-OP-M Strength Start: 07/27/18 07:37 Freq: Status: Active Protocol: Document 07/27/18 13:00 AMB (Rec: 07/27/18 15:08 AMB [email or web address]) Hip Strength Hip Manual Muscle Testing Right Flexion (L2) 4 Good Extension (S1) 4 Good Abduction 4 Good Adduction 4 Good Left Flexion (L2) 4+ Good+ Extension (S1) 4+ Good+ Abduction 4+ Good+ Adduction 4+ Good+ Knee Strength Knee Manual Muscle Testing Right Flexion (S2) 4+ Good+ Extension (L3) 4+ Good+ Left Flexion (S2) 5 Normal Extension (L3) 5 Normal PT-OP-Q Treatments Start: 07/27/18 07:37 Freq: Status: Active Protocol: Document 08/10/18 13:00 AMB (Rec: 08/10/18 13:13 AMB [id number]) Cardio Equipment Recumbent Bicycle Duration (Minutes) 8 Resistance 4 Seat Position 1 Gym Equipment Shuttle Recovery Unilateral Squats Resistance 50# Bilateral Squats Resistance 75# Therapeutic Exercises Supine Exercises 3 Supine Exercise Name SLR Reps/Minutes 10 2 Supine Exercise Name quad stretch of table Reps/Minutes 30x4 1 Supine Exercise Name heel slides Reps/Minutes 10 Standing Exercises 4 Standing Exercise Name hamstring stretch Reps/Minutes 30x2 3 Standing Exercise Name calf stretch Reps/Minutes 30x2 Comments MAYNOR 2 Standing Exercise Name mini lunges Reps/Minutes 2x10 1 Standing Exercise Name mini squats Reps/Minutes 2x10 Manual Therapy Treatment Soft Tissue Mobilization 1 Body Location R knee Mobilization Type Cross-Friction Body Position Supine Comments scar massage Manual Techniques 1 Type PROM with OP Body Location R knee Body Position Supine Comments Flexion and extension PT-OP-R Modalities Start: 07/27/18 07:37 Freq: Status: Active Protocol: Document 07/27/18 13:00 AMB (Rec: 07/27/18 15:14 AMB [email or web address]) Electric Stimulation Electric Stimulation Interferential Current (IFC) Body Location R knee Duration (Minutes) 15 Combined With Heat/Cold Cold Pack PT-OP-T Assessment and Plan Start: 07/27/18 07:37 Freq: Status: Active Protocol: Document 08/10/18 13:00 AMB (Rec: 08/10/18 16:19 AMB [email or web address]) Physical Therapy Assessment Assessment Summary Assessment The patient was very aware of the tightness in her quad today with quad stretching, so gave her multiple types of exercises for that. Physical Therapy Plan Next Visit Focus/Plan Next Note Type Treatment Note Next Visit Plan Progress standing exercises, flexion ROM
--- NOTE | 2018-08-15 16:19 | PT.OTN ---
Current Diagnoses Unilateral primary osteoarthritis, right knee (08/15/18) Other specified postprocedural states (08/15/18) Physical Therapy Treatment Note PT-OP-A Visit Information Start: 07/27/18 07:37 Freq: Status: Active Protocol: Document 08/15/18 13:00 AMB (Rec: 08/15/18 13:13 AMB [id number]) Out-Patient Physical Therapy Visit Information Visit Information Visit Type Treatment Note Visit Start Time 13:00 Visit Stop Time 13:45 Total Visit Minutes 45 Visit Number 5 PT-OP-B Current Condition Start: 07/27/18 07:37 Freq: Status: Active Protocol: Document 07/27/18 13:00 AMB (Rec: 07/27/18 14:31 AMB [email or web address]) Current Condition History of Current Condition Onset Date 07/04/18 Current Complaints s/p R partial knee History of Current Condition The patient had a meniscectomy and noticed increased pain for 3 weeks until she had a partial knee replacement. She states it was a day surgery and she has not had any PT yet and has not been doing exercises other than walking around. She is not using an assistive device. Prior Treatments and Tests Earlier in the year she had back surgery and feels that prior to that she was exercising well (playing pickle ball, going to the gym) but she has not been able to get back to her prior level due to her back still feeling weak and this knee pain. Prior Functional Status Baseline Function- ADL's Independent Current Functional Impairments (Reported) Functional Limitations- ADL's Difficulty going down stairs. Difficulty with car transfer. Difficulty returning to work out routine. Difficulty with extended standing/walking. Personal Factors Other Personal Factors That May Effect Recent back surgery. Therapy/Recovery PT-OP-C Subjective Start: 07/27/18 07:37 Freq: Status: Active Protocol: Document 08/15/18 13:00 AMB (Rec: 08/15/18 13:13 AMB [id number]) OP-PT Subjective Patient Comments Patient Comments Pt met with MD and he said she is doing fine, the swelling should work itself out over 6 months. PT-OP-G Mobility & Gait Start: 07/27/18 07:37 Freq: Status: Active Protocol: Document 07/27/18 13:00 AMB (Rec: 07/27/18 15:08 AMB [email or web address]) OP Gait Assessment Comments Gait Comments Step to gait with descending stairs. Pt is ambulating without AD with slightly decreased knee flexion in swing and a lack of full extension in stance. Less weightbearing on the R LE. PT-OP-J Posture/Palpation/Skin Start: 07/27/18 07:37 Freq: Status: Active Protocol: Document 07/27/18 13:00 AMB (Rec: 07/27/18 15:08 AMB [email or web address]) Palpation Assessment Location One Palpation Location R knee Palpation Findings Edema Tenderness Palpation Details Tenderness over scar which is healing well, with adhesions and small scabs still present. Pitting edemal throughout leg, worse at ankle. PT-OP-K Range of Motion Start: 07/27/18 07:37 Freq: Status: Active Protocol: Document 07/27/18 13:00 AMB (Rec: 07/27/18 15:08 AMB [email or web address]) Knee Goniometric Range of Motion Knee Measured in Degrees Left Patient Position Supine Flexion Passive (degrees) 117 Extension Passive (degrees) 0 Right Patient Position Supine Flexion Passive (degrees) 95 Extension Passive (degrees) 5 PT-OP-M Strength Start: 07/27/18 07:37 Freq: Status: Active Protocol: Document 07/27/18 13:00 AMB (Rec: 07/27/18 15:08 AMB [email or web address]) Hip Strength Hip Manual Muscle Testing Right Flexion (L2) 4 Good Extension (S1) 4 Good Abduction 4 Good Adduction 4 Good Left Flexion (L2) 4+ Good+ Extension (S1) 4+ Good+ Abduction 4+ Good+ Adduction 4+ Good+ Knee Strength Knee Manual Muscle Testing Right Flexion (S2) 4+ Good+ Extension (L3) 4+ Good+ Left Flexion (S2) 5 Normal Extension (L3) 5 Normal PT-OP-Q Treatments Start: 07/27/18 07:37 Freq: Status: Active Protocol: Document 08/15/18 13:00 AMB (Rec: 08/15/18 16:19 AMB [email or web address]) Cardio Equipment Recumbent Elliptical (Biodex) Duration (Minutes) 5 Resistance 8 Seat Position 4 Therapeutic Exercises Supine Exercises 3 Supine Exercise Name SLR Reps/Minutes 10 2 Supine Exercise Name quad stretch off table Reps/Minutes 30x4 1 Supine Exercise Name heel slides Reps/Minutes 10 Standing Exercises 2 Standing Exercise Name mini lunges Reps/Minutes 2x10 1 Standing Exercise Name mini squats Reps/Minutes 2x10 Manual Therapy Treatment Manual Techniques 1 Type PROM with OP Body Location R knee Body Position Supine Comments Flexion and extension PT-OP-R Modalities Start: 07/27/18 07:37 Freq: Status: Active Protocol: Document 07/27/18 13:00 AMB (Rec: 07/27/18 15:14 AMB [email or web address]) Electric Stimulation Electric Stimulation Interferential Current (IFC) Body Location R knee Duration (Minutes) 15 Combined With Heat/Cold Cold Pack PT-OP-T Assessment and Plan Start: 07/27/18 07:37 Freq: Status: Active Protocol: Document 08/15/18 13:00 AMB (Rec: 08/15/18 16:19 AMB [email or web address]) Physical Therapy Assessment Goals Four Impairment swelling Short Term Goal (STG) The patient will be independent with swelling management program so that she no longer has pitting edema. STG Duration 4 weeks Three Impairment gait Short Term Goal (STG) The patient will ascend and descend a flight of stairs with 1 foot per step without an increase in knee pain. STG Duration 4 weeks Two Impairment strength Short Term Goal (STG) The patient will be independent with a LE strengthening HEP. STG Duration 4 weeks Truck Hopper Goal (LTG) The patient will perform a partial squat without an increase in knee pain and with good body mechanics. LTG Duration 8 weeks One Impairment ROM Truck Hopper Goal (LTG) The patient will have 115 degrees of active knee flexion . LTG Duration 8 weeks Assessment Summary Assessment The patient was educated in appopriate exercise and need for consistency. Flexion still limited to 110 degrees, so would benefit from more PT, but is overwhelmed with the holidays at this time. Pt interested in calling in August, but encouraged to call earlier to at least schedule something as we do book up in advance. Physical Therapy Plan Next Visit Focus/Plan Next Note Type Treatment Note Next Visit Plan Try to get 5 more degrees of active flexion, consistency with HEP
--- NOTE | 2018-09-21 10:17 | PT.OPDS ---
Current Diagnoses Unilateral primary osteoarthritis, right knee (08/15/18) Other specified postprocedural states (08/15/18) Provider Visit Care Team Role Provider Type Ronni Ya MD Family Provider Physician Primary Care Provider Specialty: Family Practice Address: [address] [place] [address], [id number] Email: [email or web address] Milly Noyola PA-C Attending Provider Physician Clinical Project Coordinator Specialty: Orthopedic Surgery Address: [address] [place] [address], [phone] Email: [email or web address] Visit Number Visit Number 5 Discharge Summary PT-OP-B Current Condition Start: 07/27/18 07:37 Freq: Status: Active Protocol: Document 07/27/18 13:00 AMB (Rec: 07/27/18 14:31 AMB [email or web address]) Current Condition History of Current Condition Onset Date 07/04/18 Current Complaints s/p R partial knee History of Current Condition The patient had a meniscectomy and noticed increased pain for 3 weeks until she had a partial knee replacement. She states it was a day surgery and she has not had any PT yet and has not been doing exercises other than walking around. She is not using an assistive device. Prior Treatments and Tests Earlier in the year she had back surgery and feels that prior to that she was exercising well (playing pickle ball, going to the gym) but she has not been able to get back to her prior level due to her back still feeling weak and this knee pain. Prior Functional Status Baseline Function- ADL's Independent Current Functional Impairments (Reported) Functional Limitations- ADL's Difficulty going down stairs. Difficulty with car transfer. Difficulty returning to work out routine. Difficulty with extended standing/walking. Personal Factors Other Personal Factors That May Effect Recent back surgery. Therapy/Recovery PT-OP-C Subjective Start: 07/27/18 07:37 Freq: Status: Active Protocol: Document 08/15/18 13:00 AMB (Rec: 08/15/18 13:13 AMB [id number]) OP-PT Subjective Patient Comments Patient Comments Pt met with and he said she is doing fine, the swelling should work itself out over 6 months. PT-OP-G Mobility & Gait Start: 07/27/18 07:37 Freq: Status: Active Protocol: Document 07/27/18 13:00 AMB (Rec: 07/27/18 15:08 AMB [email or web address]) OP Gait Assessment Comments Gait Comments Step to gait with descending stairs. Pt is ambulating without AD with slightly decreased knee flexion in swing and a lack of full extension in stance. Less weightbearing on the R LE. PT-OP-J Posture/Palpation/Skin Start: 07/27/18 07:37 Freq: Status: Active Protocol: Document 07/27/18 13:00 AMB (Rec: 07/27/18 15:08 AMB [email or web address]) Palpation Assessment Location One Palpation Location R knee Palpation Findings Edema Tenderness Palpation Details Tenderness over scar which is healing well, with adhesions and small scabs still present. Pitting edemal throughout leg, worse at ankle. PT-OP-K Range of Motion Start: 07/27/18 07:37 Freq: Status: Active Protocol: Document 07/27/18 13:00 AMB (Rec: 07/27/18 15:08 AMB [email or web address]) Knee Goniometric Range of Motion Knee Measured in Degrees Left Patient Position Supine Flexion Passive (degrees) 117 Extension Passive (degrees) 0 Right Patient Position Supine Flexion Passive (degrees) 95 Extension Passive (degrees) 5 PT-OP-M Strength Start: 07/27/18 07:37 Freq: Status: Active Protocol: Document 07/27/18 13:00 AMB (Rec: 07/27/18 15:08 AMB [email or web address]) Hip Strength Hip Manual Muscle Testing Right Flexion (L2) 4 Good Extension (S1) 4 Good Abduction 4 Good Adduction 4 Good Left Flexion (L2) 4+ Good+ Extension (S1) 4+ Good+ Abduction 4+ Good+ Adduction 4+ Good+ Knee Strength Knee Manual Muscle Testing Right Flexion (S2) 4+ Good+ Extension (L3) 4+ Good+ Left Flexion (S2) 5 Normal Extension (L3) 5 Normal PT-OP-T Assessment and Plan Start: 07/27/18 07:37 Freq: Status: Active Protocol: Document 09/21/18 10:13 AMB (Rec: 09/21/18 10:17 AMB [email or web address]) Physical Therapy Assessment Goals Four Impairment swelling Short Term Goal (STG) The patient will be independent with swelling management program so that she no longer has pitting edema. STG Duration MET Three Impairment gait Short Term Goal (STG) The patient will ascend and descend a flight of stairs with 1 foot per step without an increase in knee pain. STG Duration MET Two Impairment strength Short Term Goal (STG) The patient will be independent with a LE strengthening HEP. STG Duration MET Patch Finisher Goal (LTG) The patient will perform a partial squat without an increase in knee pain and with good body mechanics. LTG Duration PARTIALLY MET One Impairment ROM Patch Finisher Goal (LTG) The patient will have 115 degrees of active knee flexion . LTG Duration PROGRESS MADE 110 degrees Assessment Summary Assessment The patient was seen for 5 visits of physical therapy. She was instructed in a HEP. She improved her flexion by 15 degrees and extension by 5 degrees in that time. She was encouraged in returing to a gym workout, or continuing with PT, but she declined to do so. She was not especially compliant with her HEP. But she felt that she was walking alright and that it would just take awhile to heal. She has not returned to PT in over a month, therefore she is discharged at this time. Physical Therapy Plan Discharge Physical Therapy Discharge Reasons Patient Request
== END 2018-08-16 11:54 ==
LOC: PHYS 13:00
PROVIDERS: Family Provider Family Medicine; PCP Family Medicine; Visit Provider Physician Assistant
DX: Z98.890 Other specified postprocedural states (principal); M17.11 Unilateral primary osteoarthritis, right knee
CPT/HCPCS: 97014; 97110; 97140; 97162; G0283

== ENCOUNTER → 2019-05-31 11:20 | Outpatient (CLI) | payer OTHER, SELFPAY ==
--- NOTE | 2019-05-31 | DI.MG.S_ITS ---
BILATERAL DIGITAL SCREENING MAMMOGRAM 3D/2D WITH CAD: 05/31/2019 CLINICAL: Routine screening. Family history of breast cancer. Comparison is made to exams dated: 05/20/2018 mammogram, 04/12/2017 mammogram, and 01/20/2016 mammogram - [facility]. There are scattered fibroglandular elements in both breasts. Current study was also evaluated with a Computer Aided Detection (CAD) system. No significant masses, calcifications, or other findings are seen in either breast. There has been no significant interval change. IMPRESSION: NEGATIVE There is no mammographic evidence of malignancy. A 1 year screening mammogram is recommended. This exam was interpreted at Station ID: [id number]. NOTE: For mammograms, a report in lay terms will be sent to the patient. Approximately 15% of breast malignancies will not be visualized mammographically. In the management of a palpable breast mass, a negative mammogram must not discourage biopsy of a clinically suspicious lesion. Electronically Signed By: Marin patton/berna:05/31/2019 15:07:28 letter sent: Normal Exam ACR BI-RADS Category 1: Negative [id number]
== END ==
PROVIDERS: PCP Family Medicine; Visit Provider Family Medicine
DX: Z12.31 Encounter for screening mammogram for malignant neoplasm of breast (principal); Z80.3 Family history of malignant neoplasm of breast
CPT/HCPCS: 77063; 77067

== ENCOUNTER → 2020-05-27 09:18 | Outpatient (CLI) | payer MEDICARE, SELFPAY ==
--- NOTE | 2020-05-27 09:20 | DI.RAD.S_ITS ---
PROCEDURE: XR LUMBAR SPINE MIN 4V INDICATIONS: Progressive low back TECHNIQUE: 5 views of the lumbar spine acquired. COMPARISON: [facility], MR, L-SPINE WITHOUT CONTRAST, 08/17/2016, 14:55. [facility] [place], CR, XR LUMBAR SPINE 2 OR 3 VIEWS, 08/11/2018, 14:01. [facility] [place], CR, XR LUMBAR SPINE 2 OR 3 VIEWS, 03/02/2018, 10:24. [facility] [place], CR, XR LUMBAR SPINE 2 OR 3 VIEWS, 11/16/2018, 13:23. FINDINGS: Bones: 5 [id number] vertebrae are present. There is moderate dextroscoliosis. There is discectomy and posterior fusion at L4-L5. No vertebral body compression fractures. No suspicious bony lesions. There is moderate degenerative disc disease at T12-L1, L1-L2, L3-L4 and L5-S1. Severe facet arthropathy at L2-L3, L3-L4 and L5-S1. Soft tissues: Overlying bowel gas pattern is normal. Aortic calcifications consistent with atherosclerosis. Oblique views: There is pars defects. IMPRESSION: 1. Postsurgical changes with discectomy and posterior fusion at L4-L5. 2. Moderate degenerative disc disease at T12-L1, L1-L2, L3-L4 and L5-S1. 3. Severe facet arthropathy at L2-L3, L3-L4 and L5-S1. Dictated by: Gonzalo Harding M.D. on 05/27/2020 at 13:16 Approved by: Gonzalo Harding M.D. on 05/27/2020 at 13:22
== END ==
PROVIDERS: PCP Family Medicine; Referring Provider Physical Medicine & Rehabilitation; Visit Provider Physical Medicine & Rehabilitation
DX: M48.00 Spinal stenosis, site unspecified (principal); M54.5 Low back pain; M51.35 Other intervertebral disc degeneration, thoracolumbar region; M51.36 Other intervertebral disc degeneration, lumbar region; M51.37 Other intervertebral disc degeneration, lumbosacral region; M47.816 Spondylosis without myelopathy or radiculopathy, lumbar region; M47.817 Spondylosis without myelopathy or radiculopathy, lumbosacral region; Z98.1 Arthrodesis status
CPT/HCPCS: 72110

== ENCOUNTER → 2020-06-25 10:33 | Outpatient (CLI) | payer MEDICARE, SELFPAY ==
--- NOTE | 2020-06-25 | DI.MG.S_ITS ---
BILATERAL DIGITAL SCREENING MAMMOGRAM 3D/2D WITH CAD: 06/25/2020 CLINICAL: Routine screening. Family history of breast cancer. Comparison is made to exams dated: 05/31/2019 mammogram, 05/20/2018 mammogram, and 04/12/2017 mammogram - [facility]. There are scattered fibroglandular elements in both breasts. Current study was also evaluated with a Computer Aided Detection (CAD) system. No significant masses, calcifications, or other findings are seen in either breast. There has been no significant interval change. IMPRESSION: NEGATIVE There is no mammographic evidence of malignancy. A 1 year screening mammogram is recommended. This exam was interpreted at Station ID: [id number]. NOTE: For mammograms, a report in lay terms will be sent to the patient. Approximately 15% of breast malignancies will not be visualized mammographically. In the management of a palpable breast mass, a negative mammogram must not discourage biopsy of a clinically suspicious lesion. Electronically Signed By: Ryann rick/berna:06/25/2020 16:42:08 letter sent: Normal Exam ACR BI-RADS Category 1: Negative [id number]
== END ==
PROVIDERS: PCP Family Medicine; Referring Provider Family Medicine; Visit Provider Family Medicine
DX: Z12.31 Encounter for screening mammogram for malignant neoplasm of breast (principal); Z80.3 Family history of malignant neoplasm of breast
CPT/HCPCS: 77063; 77067

== ENCOUNTER → 2020-07-04 11:46 | Outpatient (CLI) | payer MEDICARE, SELFPAY ==
--- NOTE | 2020-07-04 11:47 | DI.MRI.S_ITS ---
PROCEDURE: MR LUMBAR SPINE WO CON INDICATIONS: Axial low back pain, scoliosis status post fusion L4-5 TECHNIQUE: Noncontrast sagittal T1 spin echo and T2 fast echo, coronal T2, sagittal STIR, axial T1 and T2 fast spin echo through the lumbar spine. COMPARISON: [facility] [address], CR, SPINE LUMB MIN 4VW, 08/11/2016, 11:47. [facility], , L-SPINE WITHOUT CONTRAST, 08/17/2016, 14:55. FINDINGS: Image quality: Excellent. Alignment and Curvature: 5 lumbar type vertebral bodies are present by plain film. Moderate rightward curvature of the mid lumbar spine. Mild grade 1 retrolisthesis of T12 on L1, and L1 on L2. Mild grade 1 anterolisthesis of L3 on L4 and L5 on S1. Bone Marrow: Marrow is of normal overall signal. No acute vertebral body compression fractures. L4-L5 fusion has been performed with paired posterior rods and pedicle screws. There is moderate reactive signal within the endplates adjacent to the T12-L1 intervertebral disc. Mild reactive signal within the endplates adjacent to the L1-L2, L2-L3, L3-L4, and L5-S1 intervertebral discs. Spinal Cord: Conus medullaris terminates at the mid L1 level. Visualized cord demonstrates normal signal and size. Paraspinous Soft Tissues: No paravertebral masses. L1-L2: Moderate disc height loss and desiccation. Mild diffuse disc bulge. Mild facet and ligamentum flavum hypertrophy . Mild canal stenosis. Moderate bilateral foraminal stenosis. No change. L2-L3: Moderate disc height loss and desiccation. Mild diffuse disc bulge. Moderate facet and ligamentum flavum hypertrophy. Mild epidural lipomatosis. Mild canal stenosis. Mild bilateral foraminal stenosis. No change. L3-L4: Moderate disc height loss and desiccation. Mild diffuse disc bulge with superimposed broad-based left far lateral protrusion. Moderate facet hypertrophy. Mild ligamentum flavum hypertrophy. Mild epidural lipomatosis. There is increased, severe canal stenosis. There is no change in severe left and mild right foraminal stenosis. Left L3 nerve root compression, as before. L4-L5: Status post fusion. Moderate bilateral facet hypertrophy. Residual left and right far lateral broad-based protrusions. Previously seen canal stenosis has resolved. There is moderate bilateral foraminal stenosis, which is increased. L5-S1: Moderate disc height loss and desiccation. Mild diffuse disc bulge with superimposed broad-based right posterolateral protrusion. Mild facet and ligamentum flavum hypertrophy. Mild canal stenosis. Mild left and severe right foraminal stenosis. Right L5 nerve root compression. No change. IMPRESSION: 1. Multilevel degenerative disc and facet disease, as well as ligamentum flavum hypertrophy and epidural lipomatosis. 2. Postsurgical sequelae at L4-L5. 3. Multilevel canal stenosis, worst at L3-L4, where there is increased, severe canal stenosis. 4. Multilevel foraminal stenoses, worst at L3-L4 and L5-S1 where there is associated intraforaminal nerve root compression. Recommend correlation with clinical symptoms to ascertain relevance of these findings. Dictated by: Byron Valadez M.D. on 07/04/2020 at 12:45 Approved by: Byron Valadez M.D. on 07/04/2020 at 12:51
== END ==
PROVIDERS: PCP Family Medicine; Referring Provider Family Medicine; Visit Provider Physical Medicine & Rehabilitation
DX: M54.5 Low back pain (principal); M47.816 Spondylosis without myelopathy or radiculopathy, lumbar region; M51.36 Other intervertebral disc degeneration, lumbar region; M48.061 Spinal stenosis, lumbar region without neurogenic claudication; M48.07 Spinal stenosis, lumbosacral region; M41.9 Scoliosis, unspecified; E88.2 Lipomatosis, not elsewhere classified; Z98.1 Arthrodesis status
CPT/HCPCS: 72148

== ENCOUNTER 2020-12-28 17:45 | Emergency (ER) | payer MEDICARE, SELFPAY ==
[2020-12-28 17:54] VITALS: BP 148/96; PULSE 63; RESP 18; TEMP 36.2; O2SAT 99; BMI 27.7
--- NOTE | 2020-12-28 18:10 | ED_ITS ---
HPI - Nausea/Vomiting/Diarrhea General Chief complaint: Nausea/Vomiting/Diarrhea Stated complaint: new meds, vomiting, feeling sick Time Seen by Provider: 12/28/20 18:04 Source: patient Mode of arrival: Ambulatory Limitations: no limitations History of Present Illness HPI Narrative: 85F former smoker with history of HTN, restless leg, and insomnia presents with 24-48 hours of feeling poorly in the near aftermath of initiating a new medication. He just 2 days ago she was started on pramipexole and soon thereafter started feeling generally terrible. She states that she felt electric, shaky, irritated and agitated with a pounding heart rate, nausea and was unable to move. She has only taken 1 dose of this medication and seems to have gradually improved over the course of the past day. She denies any current chest pain or shortness of breath. She has had no fever or chills. She denies any dysuria, frequency or urgency. Related Data Home Medications Medication Instructions Recorded Confirmed Respironics Dreamstation Auto CPAP #1 ea 09/13/18 11/04/20 losartan 50 mg tablet 100 mg PO DAILY tab 11/04/20 Previous Rx's Medication Instructions Recorded clobetasol 0.05 % topical cream 1 applictn TOP BID #30 gram 03/24/20 hydrochlorothiazide 25 mg tablet 25 mg PO DAILY #30 tab 11/04/20 pramipexole 0.5 mg tablet 0.5 mg PO BEDTIME PRN #30 tab 12/25/20 Allergies Allergy/AdvReac Type Severity Reaction Status Date / Time BUBBA Inhibitors AdvReac Mild cough Verified 11/04/20 13:42 [BUBBA INHIBITORS] adhesive [ADHESIVE] AdvReac Mild LOCAL RASH Verified 11/04/20 13:42 zolpidem [ZOLPIDEM] AdvReac Mild STRANGE Verified 11/04/20 13:42 BEHAVIOR Review of Systems Constitutional Constitutional: Denies chills, Reports fatigue, Denies fever(s), Denies frequent falls, Reports lethargy and Reports weakness Eyes Eyes: Denies change in vision, Denies eye discharge, Denies irritation and Denies loss of vision ENT Ears, Nose, Mouth, and Throat: Denies change in voice, Denies dizziness, Denies neck pain, Denies sore throat and Denies throat swelling Cardiovascular Cardiovascular: Denies chest pain, Reports irregular heart rhythm, Denies lightheadedness, Reports palpitations, Denies dyspnea, Denies dyspnea on exertion and Denies orthopnea Respiratory Respiratory: Denies cough, Denies dyspnea, Denies dyspnea on exertion and Denies wheezing Gastrointestinal Gastrointestinal: Denies abdominal pain, Denies change in bowel habits, Denies diarrhea, Denies nausea and Denies vomiting Musculoskeletal Musculoskeletal: Denies neck pain and Denies numbness Integumentary/Breasts Skin/Breast: Denies pruritus, Denies erythema, Denies rash and Denies wounds Neurologic Neurologic: Denies behavioral changes, Denies confusion, Denies dizziness, Denies frequent falls, Denies loss of vision, Denies numbness and Reports weakness Psychiatric Psychiatric: Denies anxiety, Denies behavioral changes, Denies confusion, Denies depression, Denies homicidal ideation and Denies suicidal ideation Endocrine Endocrine: Reports fatigue, Denies flushing and Reports palpitations Hematologic/Lymphatic Hematologic/Lymphatic: Denies easy bruising Allergic/Immunologic Allergic/Immunologic: Denies urticaria, Denies throat swelling and Denies wheezing Patient History Medical History Anxiety Back problem Back stiffness Chicken pox Excessive daytime sleepiness (~1995) Facet arthropathy, lumbar Hyperlipidemia Hypertension Insomnia, persistent (~1995) Kidney stones Obstructive sleep apnea of adult (~1995) Pruritus Restless legs syndrome (RLS) (~1995) Scoliosis Snoring (~1995) Surgical History Fibroids History of cataract removal with insertion of prosthetic lens History of knee replacement (06/04/11) History of lumbar surgery S/P lumbar fusion Skin cancer (~2001) Status post appendectomy (~194) Status post hysterectomy (~1976) Status post knee surgery (~1999) Status post knee surgery (~08/2011) Status post lumbar and lumbosacral fusion by anterior technique Family History Father Hypertension Brother Cancer Mother No problems noted. Social History marital status: details: adan Barraza, lives in [place] household members: spouse lives independently: Yes caregiver/support person: No housing: house pets and animals: Yes (Iranian negar) Smoking Status: Former smoker alcohol intake: current substance use type: does not use Smoking Status: Former smoker Substance Use Type: does not use Exam Narrative Exam Narrative: GENERAL: [85] year old patient appears stated age. Well- nourished, well-developed patient, in mild distress. HEAD: Atraumatic. Normocephalic. EYES: Pupils equal round and reactive. Extraocular motions intact. No scleral icterus. No injection or drainage. ENT: Nose without bleeding, purulent drainage. Throat without erythema, tonsillar hypertrophy or exudate. Airway patent. NECK: Trachea midline. Non tender CARDIOVASCULAR: Regular rate and rhythm without murmurs, gallops, or rubs. RESPIRATORY: Clear to auscultation. Breath sounds equal bilaterally. No wheezes, rales, or rhonchi. GASTROINTESTINAL: Abdomen soft, non-tender, nondistended. EXTREMITIES: No edema or joint tenderness. BACK: Nontender without deformity or crepitance. No flank tenderness. NEURO: AOx3. SKIN: No rash or erythema of visible areas Initial Vital Signs Initial Vital Signs: Vital Signs Temperature 97.2 F L 12/28/20 17:54 Pulse Rate 63 12/28/20 17:54 Respiratory Rate 18 12/28/20 17:54 Blood Pressure 148/96 H 12/28/20 17:54 Pulse Oximetry 99 12/28/20 17:54 Course Orders Ordered: Discontinued Medications Sodium Chloride (Normal Saline 0.9%) 1,000 mls @ 1,000 mls/hr IV BOLUS ONE Stop: 12/28/20 20:14 Last Infusion: 12/28/20 20:17 Dose: 0 mls/hr Documented by: Admin: 12/28/20 19:22 Dose: 1,000 mls/hr Documented by: STEVEN Ondansetron HCl (Ondansetron 4 Mg/2 Ml Inj) 4 mg IV NOW ONE Stop: 12/28/20 18:29 Last Admin: 12/28/20 18:42 Dose: 4 mg Documented by: TONE Ondansetron HCl (Ondansetron 4 Mg Odt Prepack) 1 bottle MISC SEEINSTR ONE Stop: 12/28/20 20:11 Last Admin: 12/28/20 20:16 Dose: 1 bottle Documented by: STEVEN Vital Signs Vital signs: Vital Signs - 8 hr 12/28/20 20:00 Pulse Rate 64 Respiratory Rate 24 Blood Pressure 174/81 H Pulse Oximetry 95 MDM - Nausea/Vomiting/Diarrhea Lab Data Result diagrams: 12/28/20 18:31 12/28/20 18:31 Labs: Lab Results 12/28/20 12/28/20 12/28/20 Range/Units 18:31 18:31 18:31 WBC 8.9 (4.5-11.0) X10^3/uL RBC 4.77 (4.0-5.2) X10^6/uL Hgb 15.1 (12.0-16.0) g/dL Hct 43.4 (36-46) % MCV 90.9 (80-100) fL MCH 31.6 (26-34) PG MCHC 34.8 (30-36) % RDW 13.4 (11.6-14.8) % Plt Count 207 (150-400) X10^3/uL Neut % (Auto) 84.1 H (50-75) % Lymph % (Auto) 9.0 L (25-40) % [place] % (Auto) 6.4 (3-14) % Eos % (Auto) 0.2 L (2-4) % Baso % (Auto) 0.3 (0-2) % Neut # (Auto) 7500 H (6388-0541) /uL Lymph # (Auto) 800 L (8502-7477) /uL [place] # (Auto) 600 (0-900) /uL Eos # (Auto) 0 (0-450) /uL Baso # (Auto) 0 (0-100) /uL PT 11.2 (10.1-12.7) SECONDS INR 1.0 (0.9-1.3) APTT 33 (26.4-36.2) SECONDS Sodium 133 L (137-145) mmol/L Potassium 3.8 (3.4-5.1) mmol/L Chloride 97 L (98-107) mmol/L Carbon Dioxide 26 (22-32) mmol/L BUN 20 H (7-17) mg/dL Creatinine 0.88 (0.52-1.04) mg/dL Estimated GFR > 60.0 (>60) mL/min BUN/Creatinine Ratio 22.7 H (6-22) Glucose 141 H (80-110) mg/dL Calcium 9.5 (8.4-10.2) mg/dL Total Bilirubin 0.6 (0.2-1.3) mg/dL AST 32 (14-36) IU/L ALT 20 (<35) IU/L Alkaline Phosphatase 94 (38-126) U/L Total Protein 8.6 H (6.3-8.2) g/dL Albumin 4.5 (3.5-5.0) g/dL Globulin 4.1 (1.7-4.1) g/dL Albumin/Globulin Ratio 1.1 (1.0-2.8) Lipase 26 (23-300) U/L MDM Narrative Medical decision making narrative: Patient started feeling very poorly after initiated new medication two days ago. She has had no swelling of tongue, lips, face or throat. She has had no widespread rash or difficulty breathing. Her symptoms are very and and seemed very likely related to the administration of her new medication. Her physical exam is very reassuring, she feels quite well after IV fluids and labs are reassuring. We discussed not taking any more of this medication, following closely with her primary care provider and various return precautions at length. She has had her questions answered to her apparent satisfaction Discharge Plan Departure Patient Disposition: Home Clinical Impression: Medication reaction Qualifiers: Encounter type: initial encounter Qualified Code(s): T50.905A - Adverse effect of unspecified drugs, medicaments and biological substances, initial encounter Vomiting Qualifiers: Vomiting type: unspecified Vomiting Intractability: non-intractable Nausea presence: with nausea Qualified Code(s): R11.2 - Nausea with vomiting, unspecified Instructions: DI for Dehydration -- Adult, DI for Adverse Drug Reaction -- Other Activity Restrictions/Additional Instructions: *You have been diagnosed with [ multiple symptoms including nausea and vomiting secondary to new medication ] *What to do: *Stop the pramipexole, but otherwise take medications as directed *Follow up with your primary care provider in 2-3 days, call for an appointment. Let them know you were seen in the Emergency Department and that we ask that you be seen in follow up *Return to ER if you should have any new, worsening or concerning symptoms Prescriptions: No Action losartan [Cozaar] 50 mg tablet 100 mg PO DAILY RF: 0 hydrochlorothiazide 25 mg tablet 25 mg PO DAILY Qty: 30 RF: 1 clobetasol 0.05 % cream 1 applictn TOP BID Qty: 30 RF: 1 pramipexole 0.5 mg tablet 0.5 mg PO BEDTIME PRN (Reason: restless leg(s)/sleep) Qty: 30 RF: 0 (DME) Respironics Dreamstation Auto CPAP Qty: 1 RF: 0 Referrals: Ronni Ya MD [Primary Care Provider] -
[2020-12-28 18:39] LABS: Add Manual Diff / Slide Review NO; Basophils Absolute Auto 0 /uL (0-100); Basophils Percent Auto 0.3 % (0-2); Eosinophils Absolute Auto 0 /uL (0-450); Eosinophils Percent Auto 0.2 % (2-4); Hematocrit 43.4 % (36-46); Hemoglobin 15.1 g/dL (12.0-16.0); Lymphocytes Absolute Auto 800 /uL (1100-4500); Mean Corpuscular HGB Conc 34.8 % (30-36); Mean Corpuscular Hemoglobin 31.6 PG (26-34); Mean Corpuscular Volume 90.9 fL (80-100); Monocytes Absolute Auto 600 /uL (0-900); Monocytes Percent Auto 6.4 % (3-14); Neutrophils Absolute Auto 7500 /uL (1500-7000); Neutrophils Percent Auto 84.1 % (50-75); Platelet Count 207 X10^3/uL (150-400); Red Blood Cell Count 4.77 X10^6/uL (4.0-5.2); Red Cell Distribution Width 13.4 % (11.6-14.8); White Blood Cell Count 8.9 X10^3/uL (4.5-11.0)
[2020-12-28] MEDS: ONDANSETRON 4 MG/2 ML INJ IV (18:42)
[2020-12-28 18:57] LABS: Prothrombin Time 11.2 SECONDS (10.1-12.7)
[2020-12-28 19:00] LABS: PTT Partial Thromboplastin Tim 33 SECONDS (26.4-36.2)
[2020-12-28 19:02] LABS: Alanine Aminotransferase 20 IU/L (<35); Albumin 4.5 g/dL (3.5-5.0); Albumin Globulin Ratio 1.1 (1.0-2.8); Alkaline Phosphatase 94 U/L (38-126); Aspartate Aminotransferase 32 IU/L (14-36); BUN Creatinine Ratio 22.7 (6-22); Bilirubin Total 0.6 mg/dL (0.2-1.3); Blood Urea Nitrogen 20 mg/dL (7-17); Calcium 9.5 mg/dL (8.4-10.2); Carbon Dioxide 26 mmol/L (22-32); Chloride 97 mmol/L (98-107); Estimated Glomerular Filt Rate > 60.0 mL/min (>60); Globulin 4.1 g/dL (1.7-4.1); Glucose 141 mg/dL (80-110); HEMOLYSIS < 15 (0-50); Lipase 26 U/L (23-300); Potassium 3.8 mmol/L (3.4-5.1); Sodium 133 mmol/L (137-145); Total Protein 8.6 g/dL (6.3-8.2)
[2020-12-28 19:13] VITALS: PULSE 63; RESP 24; O2SAT 97
[2020-12-28 19:19] VITALS: BP 175/80; PULSE 64; RESP 24; O2SAT 96
[2020-12-28] MEDS: SODIUM CHLORIDE 0.9% 1,000 ML 1000 ML IV (19:22)
[2020-12-28 19:30] VITALS: BP 163/80; PULSE 63; RESP 24; O2SAT 96
[2020-12-28 20:00] VITALS: BP 174/81; PULSE 64; RESP 24; O2SAT 95
[2020-12-28] MEDS: ONDANSETRON 4 MG ODT PREPACK 1 BOTTLE MISC (20:16)
== END 2020-12-28 20:25 | disposition home or self-care (01) ==
PROVIDERS: Emergency Provider Emergency Medicine; PCP Family Medicine
DX: R11.2 Nausea with vomiting, unspecified (principal); R00.2 Palpitations; T50.905A Adverse effect of unspecified drugs, medicaments and biological substances, initial encounter
CPT/HCPCS: 80053; 83690; 85025; 85610; 85730; 93005; 96361; 96374; 99284; J2405

== ENCOUNTER → 2021-07-13 07:44 | Outpatient (CLI) | payer MEDICARE, SELFPAY ==
--- NOTE | 2021-07-13 | DI.MG.S_ITS ---
BILATERAL DIGITAL SCREENING MAMMOGRAM 3D/2D WITH CAD: 07/13/2021 CLINICAL: Routine screening. Family history of breast cancer. Comparison is made to exams dated: 06/25/2020 mammogram, 05/31/2019 mammogram, and 05/20/2018 mammogram - [facility]. There are scattered fibroglandular elements in both breasts. Current study was also evaluated with a Computer Aided Detection (CAD) system. There is a stable benign focal asymmetry in the left breast. No significant masses, calcifications, or other findings are seen in either breast. There has been no significant interval change. IMPRESSION: BENIGN There is no mammographic evidence of malignancy. A 1 year screening mammogram is recommended. This exam was interpreted at Station ID: [id number]. NOTE: For mammograms, a report in lay terms will be sent to the patient. Approximately 15% of breast malignancies will not be visualized mammographically. In the management of a palpable breast mass, a negative mammogram must not discourage biopsy of a clinically suspicious lesion. Electronically Signed By: Luís Zhou acr/berna:07/13/2021 14:12:33 letter sent: Normal Exam ACR BI-RADS Category 2: Benign Finding(s) 3342F
== END ==
PROVIDERS: PCP Family Medicine; Referring Provider Family Medicine; Visit Provider Family Medicine
DX: Z12.31 Encounter for screening mammogram for malignant neoplasm of breast (principal); Z80.3 Family history of malignant neoplasm of breast
CPT/HCPCS: 77063; 77067

== ENCOUNTER → 2022-09-23 11:28 | Outpatient (CLI) | payer MEDICARE, SELFPAY ==
--- NOTE | 2022-09-23 11:30 | DI.MG.S_ITS ---
BILATERAL DIGITAL SCREENING MAMMOGRAM 3D/2D WITH CAD: 09/23/2022 CLINICAL: Routine screening. Family history of breast cancer. Comparison is made to exams dated: 07/13/2021 mammogram, 06/25/2020 mammogram, and 05/31/2019 mammogram - [facility]. There are scattered areas of fibroglandular density in both breasts (category b / 25%-50% glandular tissue). Current study was also evaluated with a Computer Aided Detection (CAD) system. There is a stable benign focal asymmetry in the left breast. No significant masses, calcifications, or other findings are seen in either breast. There has been no significant interval change. IMPRESSION: BENIGN There is no mammographic evidence of malignancy. A 1 year screening mammogram is recommended. This exam was interpreted at Station ID: [id number]. NOTE: For mammograms, a report in lay terms will be sent to the patient. Approximately 15% of breast malignancies will not be visualized mammographically. In the management of a palpable breast mass, a negative mammogram must not discourage biopsy of a clinically suspicious lesion. Electronically Signed By: Doni modi/berna:09/23/2022 12:13:44 letter sent: Normal Exam ACR BI-RADS Category 2: Benign Finding(s) 3342F
== END ==
PROVIDERS: PCP Family Medicine; Referring Provider Family Medicine; Visit Provider Family Medicine
DX: Z12.31 Encounter for screening mammogram for malignant neoplasm of breast (principal); Z80.3 Family history of malignant neoplasm of breast
CPT/HCPCS: 77063; 77067

== ENCOUNTER → 2022-11-28 08:25 | Outpatient (CLI) | payer MEDICARE, SELFPAY ==
--- NOTE | 2022-11-28 08:31 | DI.MRI.S_ITS ---
PROCEDURE: MR HEAD/BRAIN WO/W CON INDICATIONS: cva TECHNIQUE: Noncontrast axial T1 spin echo, axial T2 fast spin echo, sagittal and axial FLAIR, coronal T2 fast spin echo, axial gradient echo, axial diffusion and ADC through the brain. After the administration of contrast, axial and coronal and sagittal T1 spin echo with fat saturation through the brain. COMPARISON: [facility], CT, HEAD WITHOUT CONTRAST, 12/31/2008, 23:45. [facility], MR, MR ANGIO NECK W CON, 11/28/2022, 9:16. FINDINGS: Image quality: Excellent. CSF spaces: Basal cisterns are patent. No extra-axial fluid collections. Ventricles are normal in size and shape. Brain: No midline shift. No intracranial bleeds or masses. No abnormal intracranial enhancement. There is cerebral volume loss for age. There is periventricular white matter chronic small vessel ischemic change. The brainstem appears normal. Diffusion-weighted images demonstrate no acute ischemic insults. No chronic ischemic insults. Normal intravascular flow voids are present. Symmetric calcification can be seen involving the basal ganglia, which is considered to be normal for age. Skull and face: Calvarial marrow is normal in signal. Orbits appear normal. Note is made of bilateral lens replacements. Sinuses: Sinuses and mastoids appear clear. IMPRESSION: No findings of acute or subacute infarction can be seen. No masses or abnormal enhancement can be seen. Dictated by: Kendrick Rogers M.D. on 11/28/2022 at 8:52 Approved by: Kendrick Rogers M.D. on 11/28/2022 at 8:54
--- NOTE | 2022-11-28 08:31 | DI.MRI.S_ITS ---
PROCEDURE: MR ANGIO NECK W CON INDICATIONS: diplopia, poss CVA TECHNIQUE: Axial and sagittal TruFISP through the neck. Coronal dynamic MRA after the administration of contrast in the arterial and venous phases, with rotating 3-dimensional maximum intensity projection (MIP) reformats constructed from subtraction images. COMPARISON: [facility], MR, MR HEAD/BRAIN WO/W CON, 11/28/2022, 8:57. FINDINGS: Image quality: Excellent. Carotid system: Great vessels demonstrate a conventional anatomy as they arise from the aortic arch. The origins of the common carotid arteries appear normal. The calibers and courses of the common carotid arteries are likewise normal. The carotid bifurcations appear normal bilaterally. The internal carotid arteries are widely patent up to the [place] of [place]. Mild tortuosity of the internal carotid arteries can be seen. Posterior circulation: The origins of the vertebral arteries are unremarkable. The more superior portions of the vertebral arteries demonstrate normal caliber. Moderate tortuosity can be seen. Vertebral arteries join to form a normal appearing basilar artery. Miscellaneous: Subclavian arteries are patent throughout. Pre-contrast images through the neck demonstrate no soft tissue abnormalities. IMPRESSION: Within the arteries of the neck, no hemodynamically significant stenosis can be seen. No findings of dissection are seen. Any quantitative measurements of stenosis were performed using NASCET criteria. Dictated by: Kendrick Rogers M.D. on 11/28/2022 at 8:54 Approved by: Kendrick Rogers M.D. on 11/28/2022 at 8:56
== END ==
PROVIDERS: PCP Family Medicine; Referring Provider Family Medicine; Visit Provider Family Medicine
DX: I63.9 Cerebral infarction, unspecified (principal); H53.2 Diplopia
CPT/HCPCS: 70548; 70553; A9579

== ENCOUNTER → 2022-11-30 08:45 | Outpatient (CLI) | payer MEDICARE, SELFPAY | PROVIDERS: PCP Family Medicine; Referring Provider Family Medicine; Visit Provider Family Medicine | DX: I63.9 Cerebral infarction, unspecified (principal) | CPT/HCPCS: 93246 ==

== ENCOUNTER → 2023-05-10 13:28 | Outpatient (CLI) | payer MEDICARE, SELFPAY ==
--- NOTE | 2023-05-10 13:29 | DI.ECHO.S_ITS ---
[place] [facility] +---------+ : : [address] : : : : [id number] : : : : Phone: [phone] Echocardiogram Report + + :Name: RANDY RUIZ Study Date: 05/10/2023 Height: 61 in : :[facility] ReadingLocation: Weight: 150 lb : : Gender: Female BSA: 1.7 m2 : :: 1935 Age: 87 yrs BP: 214/103 mmHg: :Reason For Study: Bradycardia : :Ordering Physician: DORA, : :LIZETH Performed By: Manasa Kang : :Referring: LIZETH JOHN : + + Interpretation Summary 1) Normal left ventricular thickness and size with low nrmal systolic function (EF 50-55%). 2) Normal right ventricular size and function. 3) No significant valvular abnormalities. 4) Hypertension present during the study (BP taken after the exam was 183/99). 5) No prior Echo available for comparison. Procedure: A two-dimensional transthoracic echocardiogram with color flow and Doppler was performed. The study quality was technically adequate. There is no prior echocardiogram noted for this patient. The patient was in a bradycardic rhythm during the exam. Left Ventricle: The left ventricle is normal in size and wall thickness. The ejection fraction is estimated to be 50-55%. There are no focal wall motion abnormalities. Diastolic function could not be accurately assessed due to contradictory data. Right Ventricle: The right ventricle is normal in size and function. Atria: The left atrium is mildly dilated. Right atrial size is normal. There is no Doppler evidence for an interatrial shunt. Mitral Valve: The mitral valve leaflets appear mildly thickened, but open well. There is moderate mitral annular calcification. There is no mitral valve stenosis. There is mild mitral regurgitation. Aortic Valve: The aortic valve is not well visualized. There is no aortic valve stenosis. There is trace aortic regurgitation. Tricuspid Valve: The tricuspid valve is normal. There is no tricuspid stenosis. There is trace tricuspid regurgitation. The right ventricular systolic pressure is estimated to be at least 33 mmHg based on an estimated right atrial pressure of 8 mm Hg. Pulmonic Valve: The pulmonic valve is not well visualized. There is no pulmonic valvular stenosis. There is trace pulmonic regurgitation. Great Vessels: The aortic root is normal size. The ascending aorta is normal in size. The pulmonary artery is normal size. The IVC is dilated (diameter is greater than 2.1 cm) yet it collapses greater than 50% with a sniff. This suggests a right atrial pressure of 8 mm Hg. Pericardium/ Pleura There is no pericardial effusion. There is no pleural effusion. MMode/2D Measurements & Calculations LVIDd: 3.8 cm LVOT diam: 2.0 cm LVIDs: 2.3 cm Ao root diam: 3.4 cm FS: 39.5 % asc Aorta Diam: 3.2 cm IVSd: 1.0 cm LVPWd: 1.4 cm LV chambers. diameter/BSA (cm/m^2): 2.3 LV sys. diameter/BSA (cm/m^2): 1.4 LA A2 area: 20.3 cm2 RA long axis: 5.1 cm LA A4 area: 16.6 cm2 RA area: 14.2 cm2 LA length (vol): 5.6 cm RA vol: 33.6 ml LA vol: 50.8 ml RA : 20.1 ml/m2 LA vol index: 30.4 ml/m2 RVD1 (basal): 3.7 cm LVLs ap4: 5.9 cm LVLd ap2: 6.7 cm TAPSE_phl: 2.2 cm LVLs ap2: 5.6 cm Doppler Measurements & Calculations Ao V2 max: 137.8 cm/sec LVOT Max Kavon: 113.0 cm/sec Ao V2 mean: 97.4 cm/sec LV V1 max P.1 mmHg Ao max P.0 mmHg LV V1 VTI: 27.6 cm Ao mean P.3 mmHg PEDRO(I,D): 2.4 cm2 Ao V2 VTI: 35.6 cm PEDRO(V,D): 2.6 cm2 sev ratio: 0.78 PEDRO indexed to BSA (cm^2/m^2): 1.5 MV E max kavon: 98.5 cm/sec TR max kavon: 248.0 cm/sec MV A max kavon: 122.0 cm/sec TR max P.6 mmHg MV E/A: 0.81 Med Peak E' Kavon: 5.1 cm/sec E/E' med: 19.4 Lat Peak E' Kavon: 7.5 cm/sec E/E' lat: 13.1 E/e' average: 16.2 MV dec time: 0.28 sec SV(LVOT): 86.8 ml AV VR_phl: 0.82 PEDRO(VTI)/BSA_phl: 1.5 Reading Physician:06:37 PM
--- NOTE | 2023-05-11 01:56 | DI.NM.S_ITS ---
DATE OF SERVICE: 05/10/2023 PROCEDURE: Exercise treadmill stress test without imaging. ORDERING PROVIDER: Katie Saravia MD. INDICATIONS: The patient is an 87-year-old female with hypertension, hyperlipidemia, and a recent concern for bradycardia. FINDINGS: 1. The patient was able to exercise for 4 minutes, 43 seconds on a standard Levi protocol suggesting very good exercise capacity with an TAMIKO of -17%, achieving 7.0 METs. 2. She had a normal heart rate response to exercise with a resting heart rate of 64 BPM increasing to 132 BPM (100% of her predicted maximum). She had a hypertensive blood pressure response with a resting blood pressure of 160/90, increasing to a maximum of 250/110. 3. She had no chest discomfort or other anginal symptoms. 4. Her resting ECG shows sinus rhythm with normal ST segments. With stress, she develops 1 to [address] depression in the lateral leads that nearly completely resolved within 1 minute of recovery, although with slight persistent ST and T-wave abnormality. She had occasional isolated PACs and PVCs, the latter rarely in couplets, but no other complex ectopy. IMPRESSION: 1. Borderline abnormal exercise treadmill study for ischemia but with reduced specificity because of a significant hypertensive blood pressure response to exercise. 2. Very good exercise capacity with a normal heart rate response to exercise. 3. Occasional PACs and PVCs, the latter rarely in couplets, but no other arrhythmias noted. LetiOdilia payne - RODNEY/brigido/rodolfo doc#: [id number]/job#: [id number] dd: 05/10/2023 17:01:00 dt: 05/11/2023 01:42:00 DICTATING MD/COPIES TO: Wyatt Padilla MD; Katie Saravia MD COPIES MNE: NENA;
== END ==
PROVIDERS: PCP Family Medicine; Referring Provider Internal Medicine Cardiovascular Disease; Visit Provider Internal Medicine Cardiovascular Disease
DX: I34.0 Nonrheumatic mitral (valve) insufficiency (principal); R00.1 Bradycardia, unspecified; R55 Syncope and collapse; I63.9 Cerebral infarction, unspecified; R53.83 Other fatigue; I10 Essential (primary) hypertension; E78.5 Hyperlipidemia, unspecified
CPT/HCPCS: 93017; 93306

== ENCOUNTER → 2023-06-01 13:11 | Outpatient (CLI) | payer MEDICARE, SELFPAY ==
[2023-06-01 14:24] LABS: Add Manual Diff / Slide Review NO; Basophils Absolute Auto 0 /uL (0-100); Basophils Percent Auto 0.4 % (0-2); Eosinophils Absolute Auto 100 /uL (0-450); Eosinophils Percent Auto 1.8 % (2-4); Hematocrit 38.8 % (36-46); Hemoglobin 13.1 g/dL (12.0-16.0); Lymphocytes Absolute Auto 1700 /uL (1100-4500); Lymphocytes Percent Auto 24.1 % (25-40); Mean Corpuscular HGB Conc 33.8 % (30-36); Mean Corpuscular Hemoglobin 31.2 PG (26-34); Mean Corpuscular Volume 92.3 fL (80-100); Monocytes Absolute Auto 700 /uL (0-900); Monocytes Percent Auto 9.5 % (3-14); Neutrophils Absolute Auto 4400 /uL (1500-7000); Neutrophils Percent Auto 64.2 % (50-75); Platelet Count 211 X10^3/uL (150-400); Red Blood Cell Count 4.21 X10^6/uL (4.0-5.2); Red Cell Distribution Width 13.8 % (11.6-14.8); White Blood Cell Count 6.9 X10^3/uL (4.5-11.0)
[2023-06-01 15:43] LABS: BUN Creatinine Ratio 30.5 (6-22); Blood Urea Nitrogen 29 mg/dL (7-17); Calcium 9.4 mg/dL (8.4-10.2); Carbon Dioxide 27 mmol/L (22-32); Chloride 104 mmol/L (98-107); Estimated Glomerular Filt Rate 58 mL/min (>60); Glucose 92 mg/dL (80-110); HEMOLYSIS < 15 (0-50); Potassium 4.6 mmol/L (3.4-5.1); Sodium 138 mmol/L (137-145)
== END ==
PROVIDERS: PCP Family Medicine; Referring Provider Internal Medicine Cardiovascular Disease; Visit Provider Internal Medicine Cardiovascular Disease
DX: I49.5 Sick sinus syndrome (principal)
CPT/HCPCS: 36415; 80048; 85025

== ENCOUNTER → 2023-06-08 14:16 | Outpatient (CLI) | payer MEDICARE, SELFPAY ==
[2023-06-08 15:08] LABS: Add Manual Diff / Slide Review NO; Basophils Absolute Auto 0 /uL (0-100); Basophils Percent Auto 0.5 % (0-2); Eosinophils Absolute Auto 200 /uL (0-450); Eosinophils Percent Auto 2.6 % (2-4); Hematocrit 37.6 % (36-46); Lymphocytes Absolute Auto 1700 /uL (1100-4500); Lymphocytes Percent Auto 25.1 % (25-40); Mean Corpuscular HGB Conc 34.5 % (30-36); Mean Corpuscular Hemoglobin 31.4 PG (26-34); Mean Corpuscular Volume 90.8 fL (80-100); Monocytes Absolute Auto 700 /uL (0-900); Neutrophils Absolute Auto 4000 /uL (1500-7000); Neutrophils Percent Auto 60.8 % (50-75); Platelet Count 215 X10^3/uL (150-400); Red Blood Cell Count 4.14 X10^6/uL (4.0-5.2); Red Cell Distribution Width 13.4 % (11.6-14.8); White Blood Cell Count 6.6 X10^3/uL (4.5-11.0)
[2023-06-08 15:30] LABS: BUN Creatinine Ratio 34.8 (6-22); Blood Urea Nitrogen 31 mg/dL (7-17); Calcium 9.3 mg/dL (8.4-10.2); Carbon Dioxide 24 mmol/L (22-32); Chloride 104 mmol/L (98-107); Estimated Glomerular Filt Rate > 60 mL/min (>60); Glucose 94 mg/dL (80-110); HEMOLYSIS < 15 (0-50); Potassium 4.4 mmol/L (3.4-5.1); Sodium 136 mmol/L (137-145)
== END ==
PROVIDERS: PCP Family Medicine; Referring Provider Internal Medicine Cardiovascular Disease; Visit Provider Internal Medicine Cardiovascular Disease
DX: R00.1 Bradycardia, unspecified (principal)
CPT/HCPCS: 36415; 80048; 85025

== ENCOUNTER → 2023-09-29 13:01 | Outpatient (CLI) | payer MEDICARE, SELFPAY ==
--- NOTE | 2023-09-29 13:02 | DI.MG.S_ITS ---
BILATERAL DIGITAL SCREENING MAMMOGRAM 3D/2D WITH CAD: 09/29/2023 CLINICAL: Routine screening. Family history of breast cancer. Comparison is made to exams dated: 09/23/2022 mammogram, 07/13/2021 mammogram, and 06/25/2020 mammogram - [facility]. There are scattered areas of fibroglandular density in both breasts (category b / 25%-50% glandular tissue). Current study was also evaluated with a Computer Aided Detection (CAD) system. There is a stable benign focal asymmetry in the left breast. No significant masses, calcifications, or other findings are seen in either breast. There has been no significant interval change. IMPRESSION: BENIGN There is no mammographic evidence of malignancy. A 1 year screening mammogram is recommended. This exam was interpreted at Station ID: [id number]. NOTE: For mammograms, a report in lay terms will be sent to the patient. Approximately 15% of breast malignancies will not be visualized mammographically. In the management of a palpable breast mass, a negative mammogram must not discourage biopsy of a clinically suspicious lesion. Electronically Signed By: Doni modi/berna:09/29/2023 14:42:17 letter sent: Normal Exam ACR BI-RADS Category 2: Benign Finding(s) [id number]
== END ==
LOC: MAMMO 13:01
PROVIDERS: PCP Family Medicine; Referring Provider Family Medicine; Visit Provider Family Medicine
DX: Z12.31 Encounter for screening mammogram for malignant neoplasm of breast (principal); Z80.3 Family history of malignant neoplasm of breast; R92.323 Mammographic fibroglandular density, bilateral breasts
CPT/HCPCS: 77063; 77067

== ENCOUNTER → 2023-11-01 14:58 | Outpatient (CLI) | payer MEDICARE, SELFPAY ==
[2023-11-01 17:02] LABS: Folate 11.3 ng/mL (2.76-20.0); Vitamin B12 660 pg/mL (239-931)
== END ==
PROVIDERS: PCP Family Medicine; Referring Provider Family Medicine; Visit Provider Family Medicine
DX: G62.9 Polyneuropathy, unspecified (principal); Z79.899 Other long term (current) drug therapy
CPT/HCPCS: 36415; 82607; 82746

== ENCOUNTER → 2023-11-07 11:06 | Outpatient (CLI) | payer MEDICARE, SELFPAY ==
--- NOTE | 2023-11-07 11:07 | DI.RAD.S_ITS ---
PROCEDURE: XR HIP W PEL IF DONE RT 2V INDICATIONS: r t hip pain TECHNIQUE: 2 views of the hip were acquired. COMPARISON: [facility], CR, [id number] W PEL IF PERFORMED, 01/27/2017, 8:56. FINDINGS: Bones: No fractures or dislocations. No suspicious bony lesions. The visualized pelvic ring appears intact. Mild nonuniform joint space narrowing with osteophytic lipping of the acetabulum. Soft tissues: No suspicious soft tissue calcifications or masses. IMPRESSION: Mild right hip osteoarthritis. Dictated by: Jerry Aguilar M.D. on 11/07/2023 at 14:06 Approved by: Jerry Aguilar M.D. on 11/07/2023 at 14:07
== END ==
LOC: RAD 11:07
PROVIDERS: PCP Family Medicine; Referring Provider Family Medicine; Visit Provider Family Medicine
DX: M16.11 Unilateral primary osteoarthritis, right hip (principal); M25.551 Pain in right hip
CPT/HCPCS: 73502

== ENCOUNTER 2024-01-26 09:45 | Outpatient (RCR) | payer MEDICARE, SELFPAY ==
--- NOTE | 2023-12-20 15:52 | PT.OIE ---
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) Obstructive sleep apnea of adult (~1995) Restless legs syndrome (RLS) (~1995) Scoliosis Snoring (~1995) Past Surgical History (Last Updated 07/02/21 @ 12:14 by Kim Anderson PA-C) Fibroids History of cataract removal with insertion of prosthetic lens History of knee replacement (06/04/11) S/P lumbar fusion Skin cancer (~2001) Status post appendectomy (~1943) Status post hysterectomy (~1976) Status post knee surgery (~1999) Status post knee surgery (~08/2011) Status post lumbar and lumbosacral fusion by anterior technique Visit Care Team Role Provider Type Ronni Ya MD Attending Provider Physician Family Provider Primary Care Provider Referring Provider Specialty: [facility] Address: [address] [place] [address], [address], [facility] Email: [email or web address] Physical Therapy Initial Evaluation PT-OP-A Visit Information Start: 12/20/23 09:42 Freq: Status: Active Protocol: Document 12/20/23 10:31 NM (Rec: 12/20/23 12:14 NM [id number]) Out-Patient Physical Therapy Visit Information Visit Information Visit Type Initial Evaluation Visit Note KX after 19 visits Visit Start Time 10:30 Visit Stop Time 11:15 Visit Number 1 Evaluation Information Evaluation Date 12/20/23 Precautions Precautions Pacemaker -- Monitor vitals with activity Previous lumbar fusion and discectomy, Scoliosis, blood pressure, R hip OA, L patellar dislocates PT-OP-B Current Condition Start: 12/20/23 09:42 Freq: Status: Active Protocol: Document 12/20/23 10:31 NM (Rec: 12/20/23 12:14 NM [id number]) Current Condition History of Current Condition Onset Date chronic Current Complaints decreased ambulation, pain, decreased mobility History of Current Condition Pt presents with chronic back pain. She has a hx of back surgery about 6 years ago ( fusion and discectomy). She states that the surgery did not fix the lower L back, which is her primary complaint . She has been very active ( pickle ball, tennis), but she reports that she has R hip. She states she has difficulty with weightbearing after activity on her RLE. She was referred by Dr. Ya, recently had a xray on her R hip indicating R hip OA. 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 Prn neuropathy B hands/feet. She does not use any AD for assistance with balance or gait. Pt also states that her L patella dislocates occasionally and she pops it back into place before she stands. 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, multilevel foraminal stenosis worst at L3-L4, L5-S1 with nerve root compression Future Testing and Treatments Planned Follow up for pacemaker within upcoming weeks Treatment Goals Patient/Caregiver Goals walking better Current Functional Impairments (Reported) Functional Limitations- ADL's making bed, bending forward, dressing, cleaning Functional Limitations- Mobility/Gait ambulation 1-1.5 block with dog Functional Limitations- Recreation/ playing pickle ball or tennis Hobbies Functional Limitations- Other caregiver for (not providing physical assistance yet) PT-OP-C Subjective Start: 12/20/23 09:42 Freq: Status: Active Protocol: Document 12/20/23 10:31 NM (Rec: 12/20/23 12:14 NM [id number]) OP-PT Subjective Patient Comments Patient Comments see hx above for pt report Patient Questionnaires Lower Extremity Functional Scale LEFS Score 44/80 Oswestry Low Back Index Oswestry Score did not complete, unable to score OP-PT Pain Assessment Location low back Pain Location Details L sided, midline Intensity 6 Scale Used Numeric (0 - 10) Description Aching,Burning,Sharp Description- Other no N/T, prn burning Frequency Constant Pain Aggravating Factors ADL's,Activity,Exercise, Standing,Walking,Bending, Lifting Pain Alleviating Factors Heat,Medication R hip Pain Location Details lateral hip, posterior glute Intensity 5 Scale Used Numeric (0 - 10) Description Aching,Chronic,Sharp Description- Other hardly take a step, weakness Frequency Frequent Pain Duration until seated break Pain Aggravating Factors Walking Other Pain Aggravating Factors weight bearing, morning Pain Alleviating Factors Heat,Medication,Sitting Other Pain Alleviating Factors ibuprofen PT-OP-D Balance Start: 12/20/23 09:42 Freq: Status: Active Protocol: Document 12/20/23 10:31 NM (Rec: 12/20/23 12:14 NM [id number]) Balance Tests Single Limb Standing Single Limb- Right 3 seconds; painful Single Limb- Left 8 seconds Tandem Tandem Standing 8 seconds PT-OP-E Functional Tests Start: 12/20/23 09:42 Freq: Status: Active Protocol: Document 12/20/23 10:31 NM (Rec: 12/20/23 12:14 NM [id number]) Functional Tests 30 Second Sit to Stand Test Score 10 Comments 20 chair; L low back pain PT-OP-F Manual Assessment Start: 12/20/23 09:42 Freq: Status: Active Protocol: Document 12/20/23 10:31 NM (Rec: 12/20/23 12:14 NM [id number]) Manual Assessments Soft Tissue Assessment Soft Tissue Mobility Assessment increased HS length Joint Mobility Assessment Joint Mobility Assessment scoliosis L PT-OP-G Mobility & Gait Start: 12/20/23 09:42 Freq: Status: Active Protocol: Document 12/20/23 10:31 NM (Rec: 12/20/23 12:14 NM [id number]) OP Gait Assessment Gait Gait Assistance Required: Independent Distance (Feet) 150 Assistive Devices Assistive Device None Gait Deviations General Gait Pattern Antalgic,Decreased Stride Length,Flexed Trunk,Step-to Gait Factors Limiting Gait Function Factors Limiting Gait Function Decreased Activity Tolerance, Decreased Sensation,Decreased Strength,Limited Range of Motion,Pain,Poor Balance Comments Gait Comments Demos antalgic gait with trunk flexion due to back pain, limited R stance time and slight circumduction PT-OP-H Neuro Start: 12/20/23 09:42 Freq: Status: Active Protocol: Document 12/20/23 10:31 NM (Rec: 12/20/23 12:14 NM [id number]) Sensation Evaluation Comments Summary Comments BLE and trunk intact to light touch sensation Deep Tendon Reflex & Clonus Assessment Deep Tendon Reflex Bilateral Patellar Deep Tendon Reflex 2+ Normal PT-OP-J Posture/Palpation/Skin Start: 12/20/23 09:42 Freq: Status: Active Protocol: Document 12/20/23 10:31 NM (Rec: 12/20/23 12:14 NM [id number]) Posture Evaluation Position Standing Head/C-Spine Posture Forward Head T-Spine Posture Fixed Scoliosis on (R) L-Spine Posture Fixed Scoliosis on (L) Pelvis Posture Posterior Tilted Weight Distribution Decreased Wt.Bear on (L) Hip Posture (L) Externally Rotated,(R) Externally Rotated Palpation Assessment Location back Palpation Findings Soft Tissue Tightness, Tenderness Palpation Details Tenderness and tightness paraspinals, tenderness B PSIS /SIJ PT-OP-K Range of Motion Start: 12/20/23 09:42 Freq: Status: Active Protocol: Document 12/20/23 10:31 NM (Rec: 12/20/23 12:14 NM [id number]) Lumbar Spine Range of Motion Lumbar Spine Active Percentage Flexion 90 Extension 10 Lateral Flexion Left 25 Lateral Flexion Right 10 Comments L sided pain with lateral flexion. States flexion feels better than extension. All motion occurs at hips and thoracic spine Hip Goniometric Range of Motion Hip Left Flexion w/Knee Flexed 110 Internal Rotation 35 External Rotation 30 Comments L knee cap dislocates laterally Right Flexion w/Knee Flexed 105 Internal Rotation 30 External Rotation 30 Comments Minimal posterior hip pain with ER PT-OP-L Special Tests Start: 12/20/23 09:42 Freq: Status: Active Protocol: Document 12/20/23 10:31 NM (Rec: 12/20/23 12:14 NM [id number]) Special Tests Lumbar Spine Special Tests Distraction Test Results + Straight Leg Raise Test Results + Comments R only Slump Test Results - Carr/Quadrant Test Results + Hip Special Tests Logroll Test Results - Resisted Straight Leg Raise Test Results - Scour Test Results - FADIR Test Results - KVNG Test Results + Comments posterior hip pain, reports tightness in quad PT-OP-M Strength Start: 12/20/23 09:42 Freq: Status: Active Protocol: Document 12/20/23 10:31 NM (Rec: 12/20/23 12:14 NM [id number]) Trunk Strength Trunk Manual Muscle Testing Flexion 4 Good Extension 4 Good Rotation Left 4 Good Rotation Right 4 Good Lateral Flexion Left 4 Good Lateral Flexion Right 4 Good Hip Strength Hip Manual Muscle Testing Left Flexion (L2) 4- Good- Extension (S1) 4- Good- Abduction 4- Good- Adduction 4 Good External Rotation 4 Good Internal Rotation 4 Good Right Flexion (L2) 3 Fair Extension (S1) 4- Good- Abduction 4- Good- Adduction 4 Good External Rotation 4 Good Internal Rotation 4 Good Comments pain free Knee Strength Knee Manual Muscle Testing Right Flexion (S2) 4 Good Extension (L3) 4 Good Left Flexion (S2) 4 Good Extension (L3) 4 Good PT-OP-T Assessment and Plan Start: 12/20/23 09:42 Freq: Status: Active Protocol: Document 12/20/23 10:31 NM (Rec: 12/20/23 12:14 NM [id number]) Physical Therapy Assessment Rehab Potential Rehabilitation Potential Good Evaluation Complexity Number of Personal Factors/Comorbidities 3 or More Number of Body Systems Impaired 1-2 Clinical Presentation at Evaluation Stable Impairments Impairments Activity Tolerance,Balance, Functional Activities, Functional Mobility,Gait, Integument,Pain,Posture,ROM, Sensation,Soft Tissue Mobility ,Strength Other Concerns Barriers to Rehabilitation Pt has chronic low back pain and previous surgery that she feels did not address the pain symptoms that she originally had prior to surgery. Pt also has several co-morbidities, including neuropathy, and a recent pacemaker that is still be adjusted for performance. She has had PT before after her surgery but did not find it helpful. She is motivated and willing to try to improve activity. Goals Four Impairment functional activity Impairment pain with bending forward Short Term Goal (STG) Pt will be able to perform at least 5 deadlifts without increase in baseline pain and good form in order to be able to make the bed and perform ADLs without increase in symptoms STG Duration 6 weeks International Logistics Coordinator Goal (LTG) Pt will be able to perform at least 10 deadlifts and or squats without increase in baseline pain and good form in order to be able to make the bed and perform ADLs without increase in symptoms LTG Duration 12 weeks Three Impairment strength Impairment 30 sec STS 10 Short Term Goal (STG) Pt will improve 30 second sit to stand to at least 11 in order to meet age and gender related goals for functional strength for transfers STG Duration 6 weeks Correction Goal (LTG) Pt will be able to perform at least 10 squats without increase in baseline pain order to pick object off of floor with or without hand support in order to demonstrate improved ability to perform ADLs. LTG Duration 12 weeks Two Impairment gait Impairment ambulates 1-1.5 blocks before increase in baseline pain Short Term Goal (STG) Pt will report that she is able to ambulate >2 blocks using LRAD without increase in baseline pain in order to demonstrate improved activity tolerance, pain management STG Duration 6 weeks Correction Goal (LTG) Pt will report that she is able to ambulate any distance without limitation using LRAD without increase in baseline pain in order to demonstrate improved activity tolerance, pain management LTG Duration 12 weeks One Impairment functional activity Impairment LEFS 44/80 Short Term Goal (STG) Pt will improve LEFS score by at least 9 points (1 MCID) in order to demonstrate improved activity tolerance and pain management STG Duration 6 weeks International Logistics Coordinator Goal (LTG) Pt will improve LEFS score by at least 18 points (2 MCID) in order to demonstrate improved activity tolerance and pain management LTG Duration 12 weeks Assessment Summary Assessment Pt is a 88 y.o. female with chronic back and R posterior hip pain. Low back pain related primarily to scoliosis , although pt has hx of discectomy and lumbar fusion. Recent imaging reveals pt has R hip OA, which likely contributes to pain; however, location of pt's pain and symptoms suggest more lumbar spine involvement. Pt has limited trunk ROM related to fusion; she also has less hip flexion ROM bilaterally, R>L. Pt primarily has limitations in BLE strength, particularly hips and ankles. She has most reported pain with ambulation and weight bearing in R hip. Her 30 second sit to stand is not painful, but slightly below age/gender related norms . Pt has strong preference for flexion and worse with extension; symptoms are similar to stenosis. PT discussed exam findings and plan of care with pt; pt verbalizes understanding and is in agreement. Pt would benefit from skilled PT for progressive BLE strengthening, flexibility, and body mechanics training in order to improve pain management and activity tolerance. Physical Therapy Plan Frequency and Duration Frequency of Treatment 2x/Week Duration of treatment (weeks) 12 Plan of Care Start Date 12/20/23 Plan of Care End Date 03/16/24 Therapeutic Interventions Therapeutic Interventions Balance Training,Gait Training ,Home Exercise Program,Joint Mobilizations,Manual Therapy, Neuromuscular Re-education, Orthotic/Prosthetic Management ,Patient/Caregiver Education, Self-Care/Home Management, Sensory Integration,Soft Tissue Mobilization,Taping, Therapeutic Activities, Therapeutic Exercises Modalities Biofeedback,Cold Pack/Ice Massage,Electric Stimulation, Hot Packs,Traction- Mechanical ,Vasopneumatic Devices Other Referrals/Consults Referrals/Consults Recommended Recommend referral to grants specialist to address frequent L patellar dislocations Next Visit Focus/Plan Next Note Type Treatment Note Next Visit Plan TrA activation, stretching of hips/thigh, bridge vs HS isometric, trial bird dog, sit to stand and squat, hip hinge . Manual treatment prn Plan of care: flexion biased core strengthening Future: trial bike, balance
--- NOTE | 2023-12-22 12:44 | PT.OTN ---
Current Diagnoses Pain in unspecified hip (12/22/23) Scoliosis, unspecified (12/22/23) Spondylosis without myelopathy or radiculopathy, lumbar region (12/22/23) Other lack of coordination (12/22/23) Weakness (12/22/23) Physical Therapy Treatment Note PT-OP-A Visit Information Start: 12/20/23 09:42 Freq: Status: Active Protocol: Document 12/22/23 09:05 NM (Rec: 12/22/23 09:47 NM [id number]) Out-Patient Physical Therapy Visit Information Visit Information Visit Type Treatment Note Visit Note KX after 19 visits Visit Start Time 09:06 Visit Stop Time 09:45 Visit Number 2 Evaluation Information Evaluation Date 12/20/23 Precautions Precautions Pacemaker -- Monitor vitals with activity Previous lumbar fusion and discectomy, Scoliosis, blood pressure, R hip OA, L patellar dislocates PT-OP-B Current Condition Start: 12/20/23 09:42 Freq: Status: Active Protocol: Document 12/20/23 10:31 NM (Rec: 12/20/23 12:14 NM [id number]) Current Condition History of Current Condition Onset Date chronic Current Complaints decreased ambulation, pain, decreased mobility History of Current Condition Pt presents with chronic back pain. She has a hx of back surgery about 6 years ago ( fusion and discectomy). She states that the surgery did not fix the lower L back, which is her primary complaint . She has been very active ( pickle ball, tennis), but she reports that she has R hip. She states she has difficulty with weightbearing after activity on her RLE. She was referred by Dr. Ya, recently had a xray on her R hip indicating R hip OA. 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 Prn neuropathy B hands/feet. She does not use any AD for assistance with balance or gait. Pt also states that her L patella dislocates occasionally and she pops it back into place before she stands. 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, multilevel foraminal stenosis worst at L3-L4, L5-S1 with nerve root compression Future Testing and Treatments Planned Follow up for pacemaker within upcoming weeks Treatment Goals Patient/Caregiver Goals walking better Current Functional Impairments (Reported) Functional Limitations- ADL's making bed, bending forward, dressing, cleaning Functional Limitations- Mobility/Gait ambulation 1-1.5 block with dog Functional Limitations- Recreation/ playing pickle ball or tennis Hobbies Functional Limitations- Other caregiver for (not providing physical assistance yet) PT-OP-C Subjective Start: 12/20/23 09:42 Freq: Status: Active Protocol: Document 12/22/23 09:05 NM (Rec: 12/22/23 09:47 NM [id number]) OP-PT Subjective Patient Comments Patient Comments Pt reports no change from evaluation. States R hip not as bad this morning, but low back is tight and sore. PT-OP-D Balance Start: 12/20/23 09:42 Freq: Status: Active Protocol: Document 12/20/23 10:31 NM (Rec: 12/20/23 12:14 NM [id number]) Balance Tests Single Limb Standing Single Limb- Right 3 seconds; painful Single Limb- Left 8 seconds Tandem Tandem Standing 8 seconds PT-OP-E Functional Tests Start: 12/20/23 09:42 Freq: Status: Active Protocol: Document 12/20/23 10:31 NM (Rec: 12/20/23 12:14 NM [id number]) Functional Tests 30 Second Sit to Stand Test Score 10 Comments 20 chair; L low back pain PT-OP-F Manual Assessment Start: 12/20/23 09:42 Freq: Status: Active Protocol: Document 12/20/23 10:31 NM (Rec: 12/20/23 12:14 NM [id number]) Manual Assessments Soft Tissue Assessment Soft Tissue Mobility Assessment increased HS length Joint Mobility Assessment Joint Mobility Assessment scoliosis L PT-OP-G Mobility & Gait Start: 12/20/23 09:42 Freq: Status: Active Protocol: Document 12/20/23 10:31 NM (Rec: 12/20/23 12:14 NM [id number]) OP Gait Assessment Gait Gait Assistance Required: Independent Distance (Feet) 150 Assistive Devices Assistive Device None Gait Deviations General Gait Pattern Antalgic,Decreased Stride Length,Flexed Trunk,Step-to Gait Factors Limiting Gait Function Factors Limiting Gait Function Decreased Activity Tolerance, Decreased Sensation,Decreased Strength,Limited Range of Motion,Pain,Poor Balance Comments Gait Comments Demos antalgic gait with trunk flexion due to back pain, limited R stance time and slight circumduction PT-OP-H Neuro Start: 12/20/23 09:42 Freq: Status: Active Protocol: Document 12/20/23 10:31 NM (Rec: 12/20/23 12:14 NM [id number]) Sensation Evaluation Comments Summary Comments BLE and trunk intact to light touch sensation Deep Tendon Reflex & Clonus Assessment Deep Tendon Reflex Bilateral Patellar Deep Tendon Reflex 2+ Normal PT-OP-J Posture/Palpation/Skin Start: 12/20/23 09:42 Freq: Status: Active Protocol: Document 12/20/23 10:31 NM (Rec: 12/20/23 12:14 NM [id number]) Posture Evaluation Position Standing Head/C-Spine Posture Forward Head T-Spine Posture Fixed Scoliosis on (R) L-Spine Posture Fixed Scoliosis on (L) Pelvis Posture Posterior Tilted Weight Distribution Decreased Wt.Bear on (L) Hip Posture (L) Externally Rotated,(R) Externally Rotated Palpation Assessment Location back Palpation Findings Soft Tissue Tightness, Tenderness Palpation Details Tenderness and tightness paraspinals, tenderness B PSIS /SIJ PT-OP-K Range of Motion Start: 12/20/23 09:42 Freq: Status: Active Protocol: Document 12/20/23 10:31 NM (Rec: 12/20/23 12:14 NM [id number]) Lumbar Spine Range of Motion Lumbar Spine Active Percentage Flexion 90 Extension 10 Lateral Flexion Left 25 Lateral Flexion Right 10 Comments L sided pain with lateral flexion. States flexion feels better than extension. All motion occurs at hips and thoracic spine Hip Goniometric Range of Motion Hip Left Flexion w/Knee Flexed 110 Internal Rotation 35 External Rotation 30 Comments L knee cap dislocates laterally Right Flexion w/Knee Flexed 105 Internal Rotation 30 External Rotation 30 Comments Minimal posterior hip pain with ER PT-OP-L Special Tests Start: 12/20/23 09:42 Freq: Status: Active Protocol: Document 12/20/23 10:31 NM (Rec: 12/20/23 12:14 NM [id number]) Special Tests Lumbar Spine Special Tests Distraction Test Results + Straight Leg Raise Test Results + Comments R only Slump Test Results - Carr/Quadrant Test Results + Hip Special Tests Logroll Test Results - Resisted Straight Leg Raise Test Results - Scour Test Results - FADIR Test Results - KVNG Test Results + Comments posterior hip pain, reports tightness in quad PT-OP-M Strength Start: 12/20/23 09:42 Freq: Status: Active Protocol: Document 12/20/23 10:31 NM (Rec: 12/20/23 12:14 NM [id number]) Trunk Strength Trunk Manual Muscle Testing Flexion 4 Good Extension 4 Good Rotation Left 4 Good Rotation Right 4 Good Lateral Flexion Left 4 Good Lateral Flexion Right 4 Good Hip Strength Hip Manual Muscle Testing Left Flexion (L2) 4- Good- Extension (S1) 4- Good- Abduction 4- Good- Adduction 4 Good External Rotation 4 Good Internal Rotation 4 Good Right Flexion (L2) 3 Fair Extension (S1) 4- Good- Abduction 4- Good- Adduction 4 Good External Rotation 4 Good Internal Rotation 4 Good Comments pain free Knee Strength Knee Manual Muscle Testing Right Flexion (S2) 4 Good Extension (L3) 4 Good Left Flexion (S2) 4 Good Extension (L3) 4 Good PT-OP-Q Treatments Start: 12/20/23 09:42 Freq: Status: Active Protocol: Document 12/22/23 09:05 NM (Rec: 12/22/23 09:47 NM [id number]) Therapeutic Exercises Supine Exercises gaby stretch Supine Exercise Name leg off table Side bilateral Reps/Minutes 1x60 Comments pain free figure 4 stretch Supine Exercise Name knee flexed Side bilateral Reps/Minutes 1x60 Comments good feedback with stretch in glutes, pain free TrA activation Supine Exercise Name 1. breathing, 2. LTR, 3. uni march, 4. LE ext Side bilateral Resistance AROM Equipment Used draw belly button to spine, tactile/verbal cues w/ cough Reps/Minutes 1. 1x10 w/ 3 breaths, 2. 1x30 , 3. 1x15 ea, 4.1x10 Comments pain free; cued core stab; D/c #4 with LLE d/t patellar sublux/reduction Sidelying Exercises reverse clams Side bilateral Resistance AROM Reps/Minutes 1x10 with brief hold Comments pain free; progress next session clams Side bilateral Resistance AROM Reps/Minutes 1x10 Comments pain free; cued to limit hip rot bwd; progress next session Manual Therapy Treatment Soft Tissue Mobilization B glutes/HS Mobilization Type Rolling Intensity/Depth Moderate Body Position Prone Comments Pillows under hips. Pain free with soft tissue mobilization, R sided more tight than L side. No tenderness today compared to IE lumbar spine Mobilization Type Oscillations,Rolling Intensity/Depth Moderate Body Position Prone Comments Pillow under hips. B paraspinal tightness, minimal tenderness. Equally tight, no pain with soft tissue mobilization Joint Mobilizations R hip Direction inf, lat Grade III Body Position Hooklying Reps/Duration 1x15 ea Comments Pain free. Progressed from grade II>III using mobilization strap, for improved hip mobility prior to stretching and exercises Self-Care/Home Management Treatment Education Patient Education Home Exercise Program,Joint Protection,Safety Other Education HEP: TA activation, supine october with TA, figure 4 gaby bocanegra Education on patellar stabilization brace for L knee for safety and to decrease frequency of subluxations; recommended follow up with PCP about L knee for further assessment PT-OP-T Assessment and Plan Start: 12/20/23 09:42 Freq: Status: Active Protocol: Document 12/22/23 09:05 NM (Rec: 12/22/23 09:47 NM [id number]) Physical Therapy Assessment Goals Four Impairment functional activity Impairment pain with bending forward Short Term Goal (STG) Pt will be able to perform at least 5 deadlifts without increase in baseline pain and good form in order to be able to make the bed and perform ADLs without increase in symptoms STG Duration 6 weeks Glue Bone Crusher Goal (LTG) Pt will be able to perform at least 10 deadlifts and or squats without increase in baseline pain and good form in order to be able to make the bed and perform ADLs without increase in symptoms LTG Duration 12 weeks Three Impairment strength Impairment 30 sec STS 10 Short Term Goal (STG) Pt will improve 30 second sit to stand to at least 11 in order to meet age and gender related goals for functional strength for transfers STG Duration 6 weeks Glue Bone Crusher Goal (LTG) Pt will be able to perform at least 10 squats without increase in baseline pain order to pick object off of floor with or without hand support in order to demonstrate improved ability to perform ADLs. LTG Duration 12 weeks Two Impairment gait Impairment ambulates 1-1.5 blocks before increase in baseline pain Short Term Goal (STG) Pt will report that she is able to ambulate >2 blocks using LRAD without increase in baseline pain in order to demonstrate improved activity tolerance, pain management STG Duration 6 weeks Glue Bone Crusher Goal (LTG) Pt will report that she is able to ambulate any distance without limitation using LRAD without increase in baseline pain in order to demonstrate improved activity tolerance, pain management LTG Duration 12 weeks One Impairment functional activity Impairment LEFS 44/80 Short Term Goal (STG) Pt will improve LEFS score by at least 9 points (1 MCID) in order to demonstrate improved activity tolerance and pain management STG Duration 6 weeks Fci Goal (LTG) Pt will improve LEFS score by at least 18 points (2 MCID) in order to demonstrate improved activity tolerance and pain management LTG Duration 12 weeks Assessment Summary Assessment Pt tolerated session well. Reports good feedback with stretches. Initiated flexion bias core strengthening. Pt challenged with core bracing initially, requiring both tactile and verbal cues. Improved with reps, but continues to require both tactile and verbal cues for correct execution. Trialed LE extension with core bracing, but pt has L patellar discomfort and popping so discontinued. Educated on patellar bracing for stability with gait/standing and follow up with PCP for further assessment of L knee. For hip rotator strengthening post manual, trialed AROM clams and reverse clams; pt requires cues for neutral hip/spine but would tolerate progression with band and exercises next session. Initiated soft tissue mobilization and grade II-III hip mobilizations of lumbar spine and R hip. Pt tolerated manual treatment well. PT educated pt on continuing with modalities and cued for breathing for relaxation, pain reduction, and to improve muscle length. Pt would benefit from skilled PT for progressive core/BLE strength/ flexibility and body mechanics training in order to redcue pain symptoms, improve activity tolerance and ability to participate in ADLs. Physical Therapy Plan Frequency and Duration Frequency of Treatment 2x/Week Duration of treatment (weeks) 12 Plan of Care Start Date 12/20/23 Plan of Care End Date 03/16/24 Therapeutic Interventions Therapeutic Interventions Balance Training,Gait Training ,Home Exercise Program,Joint Mobilizations,Manual Therapy, Neuromuscular Re-education, Orthotic/Prosthetic Management ,Patient/Caregiver Education, Self-Care/Home Management, Sensory Integration,Soft Tissue Mobilization,Taping, Therapeutic Activities, Therapeutic Exercises Modalities Biofeedback,Cold Pack/Ice Massage,Electric Stimulation, Hot Packs,Traction- Mechanical ,Vasopneumatic Devices Other Referrals/Consults Referrals/Consults Recommended Recommend referral to crime scene specialist to address frequent L patellar dislocations Next Visit Focus/Plan Next Note Type Treatment Note Next Visit Plan Next: trial bridge, STS with hinge, progress flexion core, side steps, hip ER/IR with band in sidelying; hip mobs and STM TrA activation, stretching of hips/thigh, bridge vs HS isometric, trial bird dog, sit to stand and squat, hip hinge . Manual treatment prn Plan of care: flexion biased core strengthening Be aware of L knee Future: trial bike, balance
--- NOTE | 2023-12-27 12:52 | PT.OTN ---
Current Diagnoses Pain in unspecified hip (12/27/23) Scoliosis, unspecified (12/27/23) Spondylosis without myelopathy or radiculopathy, lumbar region (12/27/23) Other lack of coordination (12/27/23) Weakness (12/27/23) Physical Therapy Treatment Note PT-OP-A Visit Information Start: 12/20/23 09:42 Freq: Status: Active Protocol: Document 12/27/23 08:50 AB (Rec: 12/27/23 12:52 AB [id number]) Out-Patient Physical Therapy Visit Information Visit Information Visit Type Treatment Note Visit Note KX after 19 visits Access code [email or web address] Visit Start Time 10:33 Visit Stop Time 11:16 Visit Number 3 Number of SURVEY INSTRUMENT OPERATOR Visits 1 Evaluation Information Evaluation Date 12/20/23 Precautions Precautions Pacemaker -- Monitor vitals with activity Previous lumbar fusion and discectomy, Scoliosis, blood pressure, R hip OA, L patellar dislocates PT-OP-B Current Condition Start: 12/20/23 09:42 Freq: Status: Active Protocol: Document 12/20/23 10:31 NM (Rec: 12/20/23 12:14 NM [id number]) Current Condition History of Current Condition Onset Date chronic Current Complaints decreased ambulation, pain, decreased mobility History of Current Condition Pt presents with chronic back pain. She has a hx of back surgery about 6 years ago ( fusion and discectomy). She states that the surgery did not fix the lower L back, which is her primary complaint . She has been very active ( pickle ball, tennis), but she reports that she has R hip. She states she has difficulty with weightbearing after activity on her RLE. She was referred by Dr. Ya, recently had a xray on her R hip indicating R hip OA. 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 Prn neuropathy B hands/feet. She does not use any AD for assistance with balance or gait. Pt also states that her L patella dislocates occasionally and she pops it back into place before she stands. 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, multilevel foraminal stenosis worst at L3-L4, L5-S1 with nerve root compression Future Testing and Treatments Planned Follow up for pacemaker within upcoming weeks Treatment Goals Patient/Caregiver Goals walking better Current Functional Impairments (Reported) Functional Limitations- ADL's making bed, bending forward, dressing, cleaning Functional Limitations- Mobility/Gait ambulation 1-1.5 block with dog Functional Limitations- Recreation/ playing pickle ball or tennis Hobbies Functional Limitations- Other caregiver for (not providing physical assistance yet) PT-OP-C Subjective Start: 12/20/23 09:42 Freq: Status: Active Protocol: Document 12/27/23 08:50 AB (Rec: 12/27/23 12:52 AB [id number]) OP-PT Subjective Patient Comments Patient Comments Patient comments the back is never better, has only had one treatment, the hip may be a little better. Patient reports she had the final OK for the pacemaker and has been released from the MD, is able to drive now. Patient reports having no hip pain now, back pain 5/10. seated BP left UE 138/82 HR 61 PT-OP-D Balance Start: 12/20/23 09:42 Freq: Status: Active Protocol: Document 12/20/23 10:31 NM (Rec: 12/20/23 12:14 NM [id number]) Balance Tests Single Limb Standing Single Limb- Right 3 seconds; painful Single Limb- Left 8 seconds Tandem Tandem Standing 8 seconds PT-OP-E Functional Tests Start: 12/20/23 09:42 Freq: Status: Active Protocol: Document 12/20/23 10:31 NM (Rec: 12/20/23 12:14 NM [id number]) Functional Tests 30 Second Sit to Stand Test Score 10 Comments 20 chair; L low back pain PT-OP-F Manual Assessment Start: 12/20/23 09:42 Freq: Status: Active Protocol: Document 12/20/23 10:31 NM (Rec: 12/20/23 12:14 NM [id number]) Manual Assessments Soft Tissue Assessment Soft Tissue Mobility Assessment increased HS length Joint Mobility Assessment Joint Mobility Assessment scoliosis L PT-OP-G Mobility & Gait Start: 12/20/23 09:42 Freq: Status: Active Protocol: Document 12/20/23 10:31 NM (Rec: 12/20/23 12:14 NM [id number]) OP Gait Assessment Gait Gait Assistance Required: Independent Distance (Feet) 150 Assistive Devices Assistive Device None Gait Deviations General Gait Pattern Antalgic,Decreased Stride Length,Flexed Trunk,Step-to Gait Factors Limiting Gait Function Factors Limiting Gait Function Decreased Activity Tolerance, Decreased Sensation,Decreased Strength,Limited Range of Motion,Pain,Poor Balance Comments Gait Comments Demos antalgic gait with trunk flexion due to back pain, limited R stance time and slight circumduction PT-OP-H Neuro Start: 12/20/23 09:42 Freq: Status: Active Protocol: Document 12/20/23 10:31 NM (Rec: 12/20/23 12:14 NM [id number]) Sensation Evaluation Comments Summary Comments BLE and trunk intact to light touch sensation Deep Tendon Reflex & Clonus Assessment Deep Tendon Reflex Bilateral Patellar Deep Tendon Reflex 2+ Normal PT-OP-J Posture/Palpation/Skin Start: 12/20/23 09:42 Freq: Status: Active Protocol: Document 12/20/23 10:31 NM (Rec: 12/20/23 12:14 NM [id number]) Posture Evaluation Position Standing Head/C-Spine Posture Forward Head T-Spine Posture Fixed Scoliosis on (R) L-Spine Posture Fixed Scoliosis on (L) Pelvis Posture Posterior Tilted Weight Distribution Decreased Wt.Bear on (L) Hip Posture (L) Externally Rotated,(R) Externally Rotated Palpation Assessment Location back Palpation Findings Soft Tissue Tightness, Tenderness Palpation Details Tenderness and tightness paraspinals, tenderness B PSIS /SIJ PT-OP-K Range of Motion Start: 12/20/23 09:42 Freq: Status: Active Protocol: Document 12/20/23 10:31 NM (Rec: 12/20/23 12:14 NM [id number]) Lumbar Spine Range of Motion Lumbar Spine Active Percentage Flexion 90 Extension 10 Lateral Flexion Left 25 Lateral Flexion Right 10 Comments L sided pain with lateral flexion. States flexion feels better than extension. All motion occurs at hips and thoracic spine Hip Goniometric Range of Motion Hip Left Flexion w/Knee Flexed 110 Internal Rotation 35 External Rotation 30 Comments L knee cap dislocates laterally Right Flexion w/Knee Flexed 105 Internal Rotation 30 External Rotation 30 Comments Minimal posterior hip pain with ER PT-OP-L Special Tests Start: 12/20/23 09:42 Freq: Status: Active Protocol: Document 12/20/23 10:31 NM (Rec: 12/20/23 12:14 NM [id number]) Special Tests Lumbar Spine Special Tests Distraction Test Results + Straight Leg Raise Test Results + Comments R only Slump Test Results - Carr/Quadrant Test Results + Hip Special Tests Logroll Test Results - Resisted Straight Leg Raise Test Results - Scour Test Results - FADIR Test Results - KVNG Test Results + Comments posterior hip pain, reports tightness in quad PT-OP-M Strength Start: 12/20/23 09:42 Freq: Status: Active Protocol: Document 12/20/23 10:31 NM (Rec: 12/20/23 12:14 NM [id number]) Trunk Strength Trunk Manual Muscle Testing Flexion 4 Good Extension 4 Good Rotation Left 4 Good Rotation Right 4 Good Lateral Flexion Left 4 Good Lateral Flexion Right 4 Good Hip Strength Hip Manual Muscle Testing Left Flexion (L2) 4- Good- Extension (S1) 4- Good- Abduction 4- Good- Adduction 4 Good External Rotation 4 Good Internal Rotation 4 Good Right Flexion (L2) 3 Fair Extension (S1) 4- Good- Abduction 4- Good- Adduction 4 Good External Rotation 4 Good Internal Rotation 4 Good Comments pain free Knee Strength Knee Manual Muscle Testing Right Flexion (S2) 4 Good Extension (L3) 4 Good Left Flexion (S2) 4 Good Extension (L3) 4 Good PT-OP-Q Treatments Start: 12/20/23 09:42 Freq: Status: Active Protocol: Document 12/27/23 08:50 AB (Rec: 12/27/23 12:52 AB [id number]) Therapeutic Exercises Supine Exercises piriformis stretch Reps/Minutes 60X1 jamin stretch Supine Exercise Name leg off table Side bilateral Reps/Minutes 1x60 left X 2right Comments pain free figure 4 stretch Supine Exercise Name knee flexed Side bilateral Reps/Minutes 1x60 Comments good feedback with stretch in glutes, pain free Sidelying Exercises clams Equipment Used latex free level one due to reports of allergy to tape Sitting Exercises seated hip IR with band Side bilateral Resistance latex free level one due to reports of allergy to tape Reps/Minutes X10 Therapeutic Activity Therapeutic Activity sit to stand Reps/Minutes X 4 Comments Verbal cues for hip hinge, and patient ed to increased knee felxion to just past 90 deg. Manual Therapy Treatment Soft Tissue Mobilization right hip flexor Mobilization Type Cross-Friction,Rolling Intensity/Depth Moderate Body Position Hooklying B glutes/HS Body Location right glute/piriformis Mobilization Type Cross-Friction,Rolling Intensity/Depth Moderate Body Position Sidelying Comments pilllow between knees Self-Care/Home Management Treatment Activities Self-Care/Home Management Activities Modified Jamin stretch, piriformis and figure four streches and sidelying hip abduction with band added to HEP. PT-OP-T Assessment and Plan Start: 12/20/23 09:42 Freq: Status: Active Protocol: Document 12/27/23 08:50 AB (Rec: 12/27/23 12:52 AB [id number]) Physical Therapy Assessment Goals Four Impairment functional activity Impairment pain with bending forward Short Term Goal (STG) Pt will be able to perform at least 5 deadlifts without increase in baseline pain and good form in order to be able to make the bed and perform ADLs without increase in symptoms STG Duration 6 weeks Biophysics Professor Goal (LTG) Pt will be able to perform at least 10 deadlifts and or squats without increase in baseline pain and good form in order to be able to make the bed and perform ADLs without increase in symptoms LTG Duration 12 weeks Three Impairment strength Impairment 30 sec STS 10 Short Term Goal (STG) Pt will improve 30 second sit to stand to at least 11 in order to meet age and gender related goals for functional strength for transfers STG Duration 6 weeks Biophysics Professor Goal (LTG) Pt will be able to perform at least 10 squats without increase in baseline pain order to pick object off of floor with or without hand support in order to demonstrate improved ability to perform ADLs. LTG Duration 12 weeks Two Impairment gait Impairment ambulates 1-1.5 blocks before increase in baseline pain Short Term Goal (STG) Pt will report that she is able to ambulate >2 blocks using LRAD without increase in baseline pain in order to demonstrate improved activity tolerance, pain management STG Duration 6 weeks Biophysics Professor Goal (LTG) Pt will report that she is able to ambulate any distance without limitation using LRAD without increase in baseline pain in order to demonstrate improved activity tolerance, pain management LTG Duration 12 weeks One Impairment functional activity Impairment LEFS 44/80 Short Term Goal (STG) Pt will improve LEFS score by at least 9 points (1 MCID) in order to demonstrate improved activity tolerance and pain management STG Duration 6 weeks Mcfp Goal (LTG) Pt will improve LEFS score by at least 18 points (2 MCID) in order to demonstrate improved activity tolerance and pain management LTG Duration 12 weeks Assessment Summary Assessment Patient reports she is good end of session. Good return demontrating for stretches, but increased cues required to avoid rolling back with clamshell. Physical Therapy Plan Frequency and Duration Frequency of Treatment 2x/Week Duration of treatment (weeks) 12 Plan of Care Start Date 12/20/23 Plan of Care End Date 03/16/24 Next Visit Focus/Plan Next Note Type Treatment Note Next Visit Plan Next: trial bridge, STS with hinge, progress flexion core, side steps, hip ER/IR with band in sidelying; hip mobs and STM TrA activation, stretching of hips/thigh, bridge vs HS isometric, trial bird dog, sit to stand and squat/possibly with band to HEP, hip hinge. Manual treatment prn Plan of care: flexion biased core strengthening/bent knee fall out. Be aware of L knee Future: trial bike, balance
--- NOTE | 2023-12-29 12:46 | PT.OTN ---
Current Diagnoses Pain in unspecified hip (12/29/23) Scoliosis, unspecified (12/29/23) Spondylosis without myelopathy or radiculopathy, lumbar region (12/29/23) Other lack of coordination (12/29/23) Weakness (12/29/23) Physical Therapy Treatment Note PT-OP-A Visit Information Start: 12/20/23 09:42 Freq: Status: Active Protocol: Document 12/29/23 08:05 AB (Rec: 12/29/23 12:46 AB [id number]) Out-Patient Physical Therapy Visit Information Visit Information Visit Type Treatment Note Visit Note KX after 19 visits Access code [email or web address] Visit Start Time 10:32 Visit Stop Time 11:18 Visit Number 4 Number of PRINCIPAL DATA ARCHITECT Visits 2 Evaluation Information Evaluation Date 12/20/23 Precautions Precautions Pacemaker -- Monitor vitals with activity Previous lumbar fusion and discectomy, Scoliosis, blood pressure, R hip OA, L patellar dislocates PT-OP-B Current Condition Start: 12/20/23 09:42 Freq: Status: Active Protocol: Document 12/20/23 10:31 NM (Rec: 12/20/23 12:14 NM [id number]) Current Condition History of Current Condition Onset Date chronic Current Complaints decreased ambulation, pain, decreased mobility History of Current Condition Pt presents with chronic back pain. She has a hx of back surgery about 6 years ago ( fusion and discectomy). She states that the surgery did not fix the lower L back, which is her primary complaint . She has been very active ( pickle ball, tennis), but she reports that she has R hip. She states she has difficulty with weightbearing after activity on her RLE. She was referred by Dr. Ya, recently had a xray on her R hip indicating R hip OA. 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 Prn neuropathy B hands/feet. She does not use any AD for assistance with balance or gait. Pt also states that her L patella dislocates occasionally and she pops it back into place before she stands. 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, multilevel foraminal stenosis worst at L3-L4, L5-S1 with nerve root compression Future Testing and Treatments Planned Follow up for pacemaker within upcoming weeks Treatment Goals Patient/Caregiver Goals walking better Current Functional Impairments (Reported) Functional Limitations- ADL's making bed, bending forward, dressing, cleaning Functional Limitations- Mobility/Gait ambulation 1-1.5 block with dog Functional Limitations- Recreation/ playing pickle ball or tennis Hobbies Functional Limitations- Other caregiver for (not providing physical assistance yet) PT-OP-C Subjective Start: 12/20/23 09:42 Freq: Status: Active Protocol: Document 12/29/23 08:05 AB (Rec: 12/29/23 12:46 AB [id number]) OP-PT Subjective Patient Comments Patient Comments Patient reports her back is the same, took it easy and took yesterday off, was tired/ had to take care of spouse. Seated left UE BP 160/90 HR 60 BPM PT-OP-D Balance Start: 12/20/23 09:42 Freq: Status: Active Protocol: Document 12/20/23 10:31 NM (Rec: 12/20/23 12:14 NM [id number]) Balance Tests Single Limb Standing Single Limb- Right 3 seconds; painful Single Limb- Left 8 seconds Tandem Tandem Standing 8 seconds PT-OP-E Functional Tests Start: 12/20/23 09:42 Freq: Status: Active Protocol: Document 12/20/23 10:31 NM (Rec: 12/20/23 12:14 NM [id number]) Functional Tests 30 Second Sit to Stand Test Score 10 Comments 20 chair; L low back pain PT-OP-F Manual Assessment Start: 12/20/23 09:42 Freq: Status: Active Protocol: Document 12/20/23 10:31 NM (Rec: 12/20/23 12:14 NM [id number]) Manual Assessments Soft Tissue Assessment Soft Tissue Mobility Assessment increased HS length Joint Mobility Assessment Joint Mobility Assessment scoliosis L PT-OP-G Mobility & Gait Start: 12/20/23 09:42 Freq: Status: Active Protocol: Document 12/20/23 10:31 NM (Rec: 12/20/23 12:14 NM [id number]) OP Gait Assessment Gait Gait Assistance Required: Independent Distance (Feet) 150 Assistive Devices Assistive Device None Gait Deviations General Gait Pattern Antalgic,Decreased Stride Length,Flexed Trunk,Step-to Gait Factors Limiting Gait Function Factors Limiting Gait Function Decreased Activity Tolerance, Decreased Sensation,Decreased Strength,Limited Range of Motion,Pain,Poor Balance Comments Gait Comments Demos antalgic gait with trunk flexion due to back pain, limited R stance time and slight circumduction PT-OP-H Neuro Start: 12/20/23 09:42 Freq: Status: Active Protocol: Document 12/20/23 10:31 NM (Rec: 12/20/23 12:14 NM [id number]) Sensation Evaluation Comments Summary Comments BLE and trunk intact to light touch sensation Deep Tendon Reflex & Clonus Assessment Deep Tendon Reflex Bilateral Patellar Deep Tendon Reflex 2+ Normal PT-OP-J Posture/Palpation/Skin Start: 12/20/23 09:42 Freq: Status: Active Protocol: Document 12/20/23 10:31 NM (Rec: 12/20/23 12:14 NM [id number]) Posture Evaluation Position Standing Head/C-Spine Posture Forward Head T-Spine Posture Fixed Scoliosis on (R) L-Spine Posture Fixed Scoliosis on (L) Pelvis Posture Posterior Tilted Weight Distribution Decreased Wt.Bear on (L) Hip Posture (L) Externally Rotated,(R) Externally Rotated Palpation Assessment Location back Palpation Findings Soft Tissue Tightness, Tenderness Palpation Details Tenderness and tightness paraspinals, tenderness B PSIS /SIJ PT-OP-K Range of Motion Start: 12/20/23 09:42 Freq: Status: Active Protocol: Document 12/20/23 10:31 NM (Rec: 12/20/23 12:14 NM [id number]) Lumbar Spine Range of Motion Lumbar Spine Active Percentage Flexion 90 Extension 10 Lateral Flexion Left 25 Lateral Flexion Right 10 Comments L sided pain with lateral flexion. States flexion feels better than extension. All motion occurs at hips and thoracic spine Hip Goniometric Range of Motion Hip Left Flexion w/Knee Flexed 110 Internal Rotation 35 External Rotation 30 Comments L knee cap dislocates laterally Right Flexion w/Knee Flexed 105 Internal Rotation 30 External Rotation 30 Comments Minimal posterior hip pain with ER PT-OP-L Special Tests Start: 12/20/23 09:42 Freq: Status: Active Protocol: Document 12/20/23 10:31 NM (Rec: 12/20/23 12:14 NM [id number]) Special Tests Lumbar Spine Special Tests Distraction Test Results + Straight Leg Raise Test Results + Comments R only Slump Test Results - Carr/Quadrant Test Results + Hip Special Tests Logroll Test Results - Resisted Straight Leg Raise Test Results - Scour Test Results - FADIR Test Results - KVNG Test Results + Comments posterior hip pain, reports tightness in quad PT-OP-M Strength Start: 12/20/23 09:42 Freq: Status: Active Protocol: Document 12/20/23 10:31 NM (Rec: 12/20/23 12:14 NM [id number]) Trunk Strength Trunk Manual Muscle Testing Flexion 4 Good Extension 4 Good Rotation Left 4 Good Rotation Right 4 Good Lateral Flexion Left 4 Good Lateral Flexion Right 4 Good Hip Strength Hip Manual Muscle Testing Left Flexion (L2) 4- Good- Extension (S1) 4- Good- Abduction 4- Good- Adduction 4 Good External Rotation 4 Good Internal Rotation 4 Good Right Flexion (L2) 3 Fair Extension (S1) 4- Good- Abduction 4- Good- Adduction 4 Good External Rotation 4 Good Internal Rotation 4 Good Comments pain free Knee Strength Knee Manual Muscle Testing Right Flexion (S2) 4 Good Extension (L3) 4 Good Left Flexion (S2) 4 Good Extension (L3) 4 Good PT-OP-Q Treatments Start: 12/20/23 09:42 Freq: Status: Active Protocol: Document 12/29/23 08:05 AB (Rec: 12/29/23 12:46 AB [id number]) Therapeutic Exercises Supine Exercises piriformis stretch Side bilateral Reps/Minutes 60X1 each LE Comments verbal cues and tactile cues for set up gaby stretch Supine Exercise Name leg off table Side bilateral Reps/Minutes 60 seconds X 1 each LE Comments 60 seconds + set up, initiated with knee bent on mat, then knee to chest figure 4 stretch Supine Exercise Name knee flexed Side bilateral Reps/Minutes 1x60 Sitting Exercises seated hip IR with band Resistance latex free level 2 band Reps/Minutes X1 one minute hold Manual Therapy Treatment Soft Tissue Mobilization right hip flexor Body Location bilateral hip flexors Mobilization Type Cross-Friction,Rolling Intensity/Depth Moderate Body Position Hooklying B glutes/HS Body Location bilateral glute/piriformis Mobilization Type Cross-Friction,Rolling Intensity/Depth Moderate Body Position Sidelying Comments pilllow between knees lumbar spine Mobilization Type Sustained Pressure Intensity/Depth Moderate Body Position Sidelying Manual Techniques MET for left AI right PI Body Position Hooklying Reps/Duration 6X6 each PT-OP-T Assessment and Plan Start: 12/20/23 09:42 Freq: Status: Active Protocol: Document 12/29/23 08:05 AB (Rec: 12/29/23 12:46 AB [id number]) Physical Therapy Assessment Goals Four Impairment functional activity Impairment pain with bending forward Short Term Goal (STG) Pt will be able to perform at least 5 deadlifts without increase in baseline pain and good form in order to be able to make the bed and perform ADLs without increase in symptoms STG Duration 6 weeks Boats Renter Goal (LTG) Pt will be able to perform at least 10 deadlifts and or squats without increase in baseline pain and good form in order to be able to make the bed and perform ADLs without increase in symptoms LTG Duration 12 weeks Three Impairment strength Impairment 30 sec STS 10 Short Term Goal (STG) Pt will improve 30 second sit to stand to at least 11 in order to meet age and gender related goals for functional strength for transfers STG Duration 6 weeks Boats Renter Goal (LTG) Pt will be able to perform at least 10 squats without increase in baseline pain order to pick object off of floor with or without hand support in order to demonstrate improved ability to perform ADLs. LTG Duration 12 weeks Two Impairment gait Impairment ambulates 1-1.5 blocks before increase in baseline pain Short Term Goal (STG) Pt will report that she is able to ambulate >2 blocks using LRAD without increase in baseline pain in order to demonstrate improved activity tolerance, pain management STG Duration 6 weeks Half-Way Goal (LTG) Pt will report that she is able to ambulate any distance without limitation using LRAD without increase in baseline pain in order to demonstrate improved activity tolerance, pain management LTG Duration 12 weeks One Impairment functional activity Impairment LEFS 44/80 Short Term Goal (STG) Pt will improve LEFS score by at least 9 points (1 MCID) in order to demonstrate improved activity tolerance and pain management STG Duration 6 weeks Boats Renter Goal (LTG) Pt will improve LEFS score by at least 18 points (2 MCID) in order to demonstrate improved activity tolerance and pain management LTG Duration 12 weeks Assessment Summary Assessment 149/80 HR 60 BPM right UE in supine position, post manual therapy. 188/95 HR 61 BPM post exercise Seated rest 179/93 HR 61. Patient denies symptoms, reports she feels normal. Patient also comments she has hx of this. Patient advised to make MD aware, and go to ER/ walk in clinic immediately if symptoms occur. PT, Emily Da Silva also in to speak with patient. Patient given written copy of Blood pressures taken today. Physical Therapy Plan Frequency and Duration Frequency of Treatment 2x/Week Duration of treatment (weeks) 12 Plan of Care Start Date 12/20/23 Plan of Care End Date 03/16/24 Next Visit Focus/Plan Next Note Type Treatment Note Next Visit Plan Next: trial bridge, STS with hinge, progress flexion core, side steps, hip ER/IR with band in sidelying; hip mobs and STM TrA activation, stretching of hips/thigh, bridge vs HS isometric, trial bird dog, sit to stand and squat/possibly with band to HEP, hip hinge. Manual treatment prn Plan of care: flexion biased core strengthening/bent knee fall out. Be aware of L knee Future: trial bike, balance
--- NOTE | 2024-01-26 10:28 | PT-OP ANOTE ---
Pt attended session. PT took vitals in sitting upon pt presentation. Sitting vitals L arm 181/95 mmHg at 0955. Waited 5 minutes in sitting with pt at rest, vitals then 159/89 mmHg. Last session, FISCAL AGENT took pt's vitals prior to exercise, which were 160/90 mmHg. FISCAL AGENT recommended on 12/28 that pt go to walk in clinic for assessment, but pt reports today that she did not follow up regarding her blood pressure. PT educated pt on normal blood pressure measures, safety, stroke risk due to increased blood pressure; strongly encouraged pt to go to ED or walk in clinic for assessment. Pt refused to go to ED or walk in clinic with PT, stating I'm normally high anyway and take blood pressure medication. However, she was agreeable to see her PCP Dr. Ya and left session in her car with her trolley coach driver. PT called Dr. Ya's office at [phone] and informed them of her vitals, situation and recommendation for follow up. PT also educated pt to cancel next sessions until pt cleared by PCP that she is safe to return to PT.
--- NOTE | 2024-01-27 15:03 | PT-OP ANOTE ---
PT called and spoke to pt today at 1500 to follow up with pt regarding blood pressure episode yesterday. Pt went to Dr. Ya's office yesterday after session and was placed on blood pressure medications. She reports that she is doing well and wants to cancel all appointments until she feels better. Pt informed that she will need a new referral for PT if she wants to attend again. Pt verbalizes understanding. Pt will be discharged from PT
--- NOTE | 2024-01-27 15:11 | PT.OPDS ---
Current Diagnoses Pain in unspecified hip (01/26/24) Scoliosis, unspecified (01/26/24) Spondylosis without myelopathy or radiculopathy, lumbar region (01/26/24) Other lack of coordination (01/26/24) Weakness (01/26/24) Visit Care Team Role Provider Type Ronni Ya MD Attending Provider Physician Family Provider Primary Care Provider Referring Provider Specialty: [facility] Practice Address: [address] [place] [address], [address], [facility] Email: [email or web address] Visit Number Visit Number 4 Discharge Summary PT-OP-B Current Condition Start: 12/20/23 09:42 Freq: Status: Active Protocol: Document 12/20/23 10:31 NM (Rec: 12/20/23 12:14 NM [id number]) Current Condition History of Current Condition Onset Date chronic Current Complaints decreased ambulation, pain, decreased mobility History of Current Condition Pt presents with chronic back pain. She has a hx of back surgery about 6 years ago ( fusion and discectomy). She states that the surgery did not fix the lower L back, which is her primary complaint . She has been very active ( pickle ball, tennis), but she reports that she has R hip. She states she has difficulty with weightbearing after activity on her RLE. She was referred by Dr. Ya, recently had a xray on her R hip indicating R hip OA. 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 Prn neuropathy B hands/feet. She does not use any AD for assistance with balance or gait. Pt also states that her L patella dislocates occasionally and she pops it back into place before she stands. 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, multilevel foraminal stenosis worst at L3-L4, L5-S1 with nerve root compression Future Testing and Treatments Planned Follow up for pacemaker within upcoming weeks Treatment Goals Patient/Caregiver Goals walking better Current Functional Impairments (Reported) Functional Limitations- ADL's making bed, bending forward, dressing, cleaning Functional Limitations- Mobility/Gait ambulation 1-1.5 block with dog Functional Limitations- Recreation/ playing pickle ball or tennis Hobbies Functional Limitations- Other caregiver for (not providing physical assistance yet) PT-OP-C Subjective Start: 12/20/23 09:42 Freq: Status: Active Protocol: Document 12/29/23 08:05 AB (Rec: 12/29/23 12:46 AB [id number]) OP-PT Subjective Patient Comments Patient Comments Patient reports her back is the same, took it easy and took yesterday off, was tired/ had to take care of spouse. Seated left UE BP 160/90 HR 60 BPM PT-OP-D Balance Start: 12/20/23 09:42 Freq: Status: Active Protocol: Document 12/20/23 10:31 NM (Rec: 12/20/23 12:14 NM [id number]) Balance Tests Single Limb Standing Single Limb- Right 3 seconds; painful Single Limb- Left 8 seconds Tandem Tandem Standing 8 seconds PT-OP-E Functional Tests Start: 12/20/23 09:42 Freq: Status: Active Protocol: Document 12/20/23 10:31 NM (Rec: 12/20/23 12:14 NM [id number]) Functional Tests 30 Second Sit to Stand Test Score 10 Comments 20 chair; L low back pain PT-OP-F Manual Assessment Start: 12/20/23 09:42 Freq: Status: Active Protocol: Document 12/20/23 10:31 NM (Rec: 12/20/23 12:14 NM [id number]) Manual Assessments Soft Tissue Assessment Soft Tissue Mobility Assessment increased HS length Joint Mobility Assessment Joint Mobility Assessment scoliosis L PT-OP-G Mobility & Gait Start: 12/20/23 09:42 Freq: Status: Active Protocol: Document 12/20/23 10:31 NM (Rec: 12/20/23 12:14 NM [id number]) OP Gait Assessment Gait Gait Assistance Required: Independent Distance (Feet) 150 Assistive Devices Assistive Device None Gait Deviations General Gait Pattern Antalgic,Decreased Stride Length,Flexed Trunk,Step-to Gait Factors Limiting Gait Function Factors Limiting Gait Function Decreased Activity Tolerance, Decreased Sensation,Decreased Strength,Limited Range of Motion,Pain,Poor Balance Comments Gait Comments Demos antalgic gait with trunk flexion due to back pain, limited R stance time and slight circumduction PT-OP-H Neuro Start: 12/20/23 09:42 Freq: Status: Active Protocol: Document 12/20/23 10:31 NM (Rec: 12/20/23 12:14 NM [id number]) Sensation Evaluation Comments Summary Comments BLE and trunk intact to light touch sensation Deep Tendon Reflex & Clonus Assessment Deep Tendon Reflex Bilateral Patellar Deep Tendon Reflex 2+ Normal PT-OP-J Posture/Palpation/Skin Start: 12/20/23 09:42 Freq: Status: Active Protocol: Document 12/20/23 10:31 NM (Rec: 12/20/23 12:14 NM [id number]) Posture Evaluation Position Standing Head/C-Spine Posture Forward Head T-Spine Posture Fixed Scoliosis on (R) L-Spine Posture Fixed Scoliosis on (L) Pelvis Posture Posterior Tilted Weight Distribution Decreased Wt.Bear on (L) Hip Posture (L) Externally Rotated,(R) Externally Rotated Palpation Assessment Location back Palpation Findings Soft Tissue Tightness, Tenderness Palpation Details Tenderness and tightness paraspinals, tenderness B PSIS /SIJ PT-OP-K Range of Motion Start: 12/20/23 09:42 Freq: Status: Active Protocol: Document 12/20/23 10:31 NM (Rec: 12/20/23 12:14 NM [id number]) Lumbar Spine Range of Motion Lumbar Spine Active Percentage Flexion 90 Extension 10 Lateral Flexion Left 25 Lateral Flexion Right 10 Comments L sided pain with lateral flexion. States flexion feels better than extension. All motion occurs at hips and thoracic spine Hip Goniometric Range of Motion Hip Left Flexion w/Knee Flexed 110 Internal Rotation 35 External Rotation 30 Comments L knee cap dislocates laterally Right Flexion w/Knee Flexed 105 Internal Rotation 30 External Rotation 30 Comments Minimal posterior hip pain with ER PT-OP-L Special Tests Start: 12/20/23 09:42 Freq: Status: Active Protocol: Document 12/20/23 10:31 NM (Rec: 12/20/23 12:14 NM [id number]) Special Tests Lumbar Spine Special Tests Distraction Test Results + Straight Leg Raise Test Results + Comments R only Slump Test Results - Carr/Quadrant Test Results + Hip Special Tests Logroll Test Results - Resisted Straight Leg Raise Test Results - Scour Test Results - FADIR Test Results - KVNG Test Results + Comments posterior hip pain, reports tightness in quad PT-OP-M Strength Start: 12/20/23 09:42 Freq: Status: Active Protocol: Document 12/20/23 10:31 NM (Rec: 12/20/23 12:14 NM [id number]) Trunk Strength Trunk Manual Muscle Testing Flexion 4 Good Extension 4 Good Rotation Left 4 Good Rotation Right 4 Good Lateral Flexion Left 4 Good Lateral Flexion Right 4 Good Hip Strength Hip Manual Muscle Testing Left Flexion (L2) 4- Good- Extension (S1) 4- Good- Abduction 4- Good- Adduction 4 Good External Rotation 4 Good Internal Rotation 4 Good Right Flexion (L2) 3 Fair Extension (S1) 4- Good- Abduction 4- Good- Adduction 4 Good External Rotation 4 Good Internal Rotation 4 Good Comments pain free Knee Strength Knee Manual Muscle Testing Right Flexion (S2) 4 Good Extension (L3) 4 Good Left Flexion (S2) 4 Good Extension (L3) 4 Good PT-OP-T Assessment and Plan Start: 12/20/23 09:42 Freq: Status: Active Protocol: Document 01/27/24 15:02 NM (Rec: 01/27/24 15:11 NM [id number]) Physical Therapy Assessment Assessment Summary Assessment Pt was evaluated on 12/20/23 for hip and back pain. She attended 3 sessions. However, pt recently had pacemaker put in and was being monitored for vitals. When pt arrived at session on 01/26, her seated resting BP at start of session was 181/95 mmHg and after 5 minutes rest was 159/89 mmHg. At previous session, pt's blood pressure before exercise 160/90. Pt was educated by RESEARCH TEST ENGINE EVALUATOR at previous session to follow up with PCP, but pt did not. At 01/25 session, PT recommended pt go to ED or walk in clinic as pt's blood pressure too high to safely participate in exercise, but pt declined. PT then educated pt to go to PCP's office, which pt did immediately. Pt did not exercise at session. Pt issued blood pressure medication and is now requesting to discharge from PT. Physical Therapy Plan Discharge Physical Therapy Discharge Reasons Change in Medical Status Discharge Comments Pt called clinic today and canceled remaining appointments. She went to PCP' s office yesterday after appt and was issued medications to manage blood pressure. Pt requesting to discharge from PT until she can come back. PT informed pt that she will need new referral to return, and pt verbalizes understanding. Next Visit Focus/Plan Next Visit Plan Discharge from PT services
== END 2024-02-27 14:03 | disposition home or self-care (01) ==
LOC: PHYS 09:45
PROVIDERS: Family Provider Family Medicine; PCP Family Medicine; Referring Provider Family Medicine; Visit Provider Family Medicine
DX: M25.559 Pain in unspecified hip (principal); M41.9 Scoliosis, unspecified; M47.816 Spondylosis without myelopathy or radiculopathy, lumbar region; R53.1 Weakness; R27.8 Other lack of coordination
CPT/HCPCS: 97110; 97140; 97162; 97530